=== PATIENT | female | born 1945 | race Caucasian/White ===

== ENCOUNTER → 2016-04-16 | Outpatient (CLI) | payer BC ==
[~2016-04-16] MED LIST: ARMO150T4 PO; BACL10TA PO; CALC500C70 PO; CHOL20007 PO; CYAN100020 PO; CYM60 PO; ERGO1CAP35 PO; GADAVIST IV PRN; GLAT1INJ SC; HYDR-4383 PO; LEVO25TA5 PO; LIOT5TAB9 PO; MELA1TAB5 PO; MELOXICAM TOP; MULT-190 PO; MULT-506 PO; MULTCAP33 PO; NAPR500T3 PO; SNQ/25 PO
--- NOTE | 2016-04-16 13:51 | DIAGNOSTIC IMAGING REPORT ---
BRAIN COMBO FOR MS CLINICAL HISTORY: Multiple sclerosis. COMPARISON STUDY: MRI of the brain September 16, 2013. TECHNIQUE: Utilizing a 1.5 Francie magnet and dedicated coil, multiplanar, multiecho imaging of the brain was performed pre and postcontrast administration according to the multiple sclerosis protocol. Injection of 6 cc of Gadavist IV was uneventful. FINDINGS: No areas of restricted diffusion. No acute intracranial hemorrhage, midline shift or mass effect is present. Ventricular system is stable. The basilar cisterns are patent. There are no extra-axial collections. Flow-voids for the major intracranial vessels are present. There are no intracranial masses or areas of pathologic enhancement with the exception of a suspected small arachnoid cyst anterior to the left temporal lobe. This is unchanged. There are no areas of enhancement to suggest active demyelination. There are numerous periventricular and subcortical white matter T2 hyperintense foci. A few of these suspected plaques are slightly more conspicuous than on prior exam of September 16, 2013. No new plaques are identified. Orbits and sinuses are unremarkable. IMPRESSION: Numerous periventricular and subcortical white matter T2 hyperintense foci suggestive of demyelinating plaques. The conspicuity of several these plaques has mildly increased since exam of September 16, 2013. Otherwise, no change since prior exam. No evidence for active demyelination. Electronically signed by: Juan Carlos Martin M.D. 04/16/2016 1:49 PM
== END | disposition home or self-care (01) ==
LOC: C.MRI 12:02
PROVIDERS: ATTEND Psychiatry & Neurology Neurology
DX: G35 Multiple sclerosis (principal)

== ENCOUNTER → 2016-06-09 | Outpatient (CLI) | payer BC ==
[~2016-06-09] MED LIST changes: -GADAVIST IV PRN; -LEVO25TA5 PO
--- NOTE | 2016-06-09 15:51 | DIAGNOSTIC IMAGING REPORT ---
LEFT SHOULDER MIN 2 VIEWS ROUTINE CLINICAL HISTORY: M25.512 Left shoulder [id number] pain COMPARISON: None. DISCUSSION: Calcific density and/or chondroid type density left proximal humeral shaft. This is most likely a benign subchondral type process such as a chondroma. There are moderate degenerative changes of the glenohumeral joint. There is a grade 1 separation of the acromioclavicular joint. There is no evidence for soft tissue swelling. IMPRESSION: 1. No evidence for fracture. 2. Grade 1 separation left acromioclavicular joint. 3. Moderate degenerative change Electronically signed by: Aden Gregorio M.D. 06/09/2016 3:50 PM Dictated Date/Time: 06/09/2016 3:49 PM
--- NOTE | 2016-06-09 16:00 | DIAGNOSTIC IMAGING REPORT ---
CERVICAL SPINE 2 OR 3 VIEWS CLINICAL HISTORY: Neck pain COMPARISON STUDY: No previous studies for comparison. FINDINGS: There is a mild scoliosis. The prevertebral soft tissues are normal. No acute fractures or subluxations are visualized. There are moderate multilevel degenerative changes with multilevel disc space narrowing. There is endplate irregularity most pronounced the C6-7 level. IMPRESSION: Moderately advanced multilevel degenerative change. No acute fractures or traumatic subluxations are visualized. Electronically signed by: Lewis Zapien M.D. 06/09/2016 3:59 PM Dictated Date/Time: 06/09/2016 3:58 PM
--- NOTE | 2016-06-09 16:01 | DIAGNOSTIC IMAGING REPORT ---
RIGHT HIP 2 VIEWS CLINICAL HISTORY: Right hip pain. FINDINGS: AP and frog-leg views of the right hip are obtained. No prior studies are available for comparison at the time of dictation. The skeletal structures are osteopenic. No fracture is seen. The joint space of the hip appears preserved. The overlying soft tissues are within normal limits. IMPRESSION: No acute bony abnormality is seen in the right hip. Electronically signed by: Ian Hidalgo M.D. 06/09/2016 4:00 PM Dictated Date/Time: 06/09/2016 3:59 PM
== END | disposition home or self-care (01) ==
LOC: C.RAD 15:06
PROVIDERS: ATTEND Family Medicine
DX: M25.512 Pain in left shoulder (principal); M25.551 Pain in right hip; M54.2 Cervicalgia; S43.102A Unspecified dislocation of left acromioclavicular joint, initial encounter; X58.XXXA Exposure to other specified factors, initial encounter

== ENCOUNTER → 2016-06-16 | Outpatient (CLI) | payer BC ==
[~2016-06-16] MED LIST changes: +GADAVIST IV PRN
--- NOTE | 2016-06-16 15:40 | DIAGNOSTIC IMAGING REPORT ---
CERVICAL SPINE MRI WITH AND WITHOUT CONTRAST HISTORY: Pain. Neuropathy. M54.2 Neck painM50.90 Cervical disc disease TECHNIQUE: Multiplanar multisequence MRI of the cervical spine was performed both before and after the use of intravenous contrast. COMPARISON STUDY: None. FINDINGS: Limited study technically due to considerable patient motion. Considerable degenerative disc change throughout the entire cervical region. Sagittal images suggest a linear focus of myelomalacia left lateral aspect of the C3 cervical cord measuring 8 x 3 mm. There is no significant postcontrast enhancement within limitations of patient motion. C2-C3: Minimal broad-based bulging disc. This is in contact with but shows no significant deformity of the cervical cord. Small focus of myelomalacia left lateral aspect of the cord at the level of C3. C3-C4: Mild broad-based disc bulge. No major impact upon the cervical cord. C4-C5: Mild broad-based bulging disc. This shows partial effacement anterior subarachnoid space. No significant impact with cervical cord. C5-C6: No significant central canal or neural foraminal narrowing. C6-C7: Minimal broad-based disc bulge. Partial effacement anterior subarachnoid space. No significant contact with the cervical cord. C7-T1: No significant central canal or neural foraminal narrowing. IMPRESSION: 1 Limited exam due to patient motion. 2. Considerable degenerative disc change throughout the entire cervical region. 3. Mild broad-based disc bulges at C3-C4, C4-C5, C6-C7, and to lesser extent C2-C3. 4. Focus of myelomalacia lateral aspect cervical cord at the C3 level measuring 8 x 3 mm. 5. No evidence for abnormal postcontrast enhancement Electronically signed by: Aden Gregorio M.D. 06/16/2016 3:39 PM Dictated Date/Time: 06/16/2016 3:31 PM
== END | disposition home or self-care (01) ==
LOC: C.MRI 13:11
PROVIDERS: ATTEND Family Medicine
DX: M50.20 Other cervical disc displacement, unspecified cervical region (principal); G95.89 Other specified diseases of spinal cord

== ENCOUNTER → 2016-07-31 | Outpatient (CLI) | payer BC ==
[~2016-07-31] MED LIST changes: -GADAVIST IV PRN; +LEVO25TA5 PO
== END | disposition home or self-care (01) ==
LOC: C.MAMM 09:29
PROVIDERS: ATTEND Family Medicine
DX: M81.0 Age-related osteoporosis without current pathological fracture (principal); M85.851 Other specified disorders of bone density and structure, right thigh; M85.852 Other specified disorders of bone density and structure, left thigh

== ENCOUNTER → 2016-12-09 | Day surgery (SDC) | payer BC ==
[2016-12-01 09:45] VITALS: Ht 170.2 cm; Wt 68.2 kg
[~2016-12-09] VITALS: Ht 170.2 cm; Wt 68.2 kg
[~2016-12-09] MED LIST changes: -LEVO25TA5 PO; +LIDOCAINE HCL 2% 2 ML VIAL (20MG/ML) ONE; -MULT-190 PO; +PROPOFOL IV EMULSION 10 MG/ML 20 ML VIAL IV ONE; -SNQ/25 PO; +SODIUM CHLORIDE 0.9% 500ML 500 ML IV ONE
--- NOTE | 2016-12-09 09:50 | Endo History and Physical ---
History & Physical Date of Service: Dec 09, 2016. Chief Complaint: SCREENING Referring Physician: Case History of Present Illness 71 yo CF who presents for screening colonoscopy. Past Surgical History Hx Cardiac Surgery: No Hx Internal Defibrillator: No Hx Pacemaker: No Hx Abdominal Surgery: Yes () Hx of Implantable Prosthesis: No Hx Post-Op Nausea and Vomiting: No Hx Cancer Surgery: No Hx Thoracic Surgery: No Hx Orthopedic: Yes (RT HAND THUMB SURGERY, LT/RT FOOT SURGERY) Hx Urinary Tract Surgery: Yes (LITHOTRIPSY) Family History Colon CA Social History Smoking Status: Never Smoker Hx Substance Use: No Hx Alcohol Use: No Allergies Coded Allergies: Interferon Beta-1a (Verified Allergy, Mild, UNKNOWN, 12/09/16) Gabapentin (Verified Allergy, Unknown, "I DON'T REMEMBER REACTION", ) Latex1 -Allergic Contact Dermititis (Verified Allergy, Unknown, RASH, 12/09) Penicillins (Verified Allergy, Unknown, UNKNOWN, 12/09/16) Nickel (Verified Adverse Reaction, Unknown, SKIN IRRITATION, 12/09/16) Uncoded Allergies: MRI CONTRAST (Allergy, Unknown, headaches, 06/20/15) Current Medications Reported Home Medications Medications Dose Route/Sig Max Daily Dose Days Date Category [Meloxicam Cream] 1 Dose TOP BID 12/01/16 Reported Kp Melatonin (Melatonin) 3 Mg Tab 2 Tabs PO HS 12/01/16 Reported Vitamin D3 (Cholecalciferol) 2,000 Unit Tab 1 Tab PO QAM 12/01/16 Reported Preservision Areds (Multiple Vitamins W/ Minerals) 1 Cap Cap 1 Cap PO DAILY 12/01/16 Reported Vitamin D Cap (Ergocalciferol) 50,000 Interunit Cap 50,000 Inter.unit PO WK 10/17/15 Reported [place] 10/325 Tab (Acetaminophen/Hydrocodone Bitart) 1 Tab Tab 1 Tab PO Q4-6H PRN 10/16/15 Reported Copaxone (Glatiramer Acetate) 40 Mg/Ml Inj 40 Mg SC MWF 10/16/15 Reported Naproxen 500 Mg Tab 500 Mg PO BID PRN 10/16/15 Reported Liothyronine Sodium 5 Mcg Tab 5 Mcg PO QAM 07/05/15 Reported Nuvigil (Armodafinil) 150 Mg Tab 150 Mg PO QAM 07/05/15 Reported Vitamin B12 (Cyanocobalamin) 1,000 Mcg Tab 1,000 Mcg PO QAM 06/20/15 Reported Cymbalta * (Duloxetine HCl) 60 Mg Cap 60 Mg PO QPM 04/28/11 Reported Multivitamin (Multivitamins) Tab 1 Tab PO QAM 04/28/11 Reported Os-Kyle 500 Plus D (Calcium/Vitamin D) Tab 1 Tab PO DAILY 04/28/11 Reported Vital Signs Weight (Kilograms): 68.18 Height (Feet): 5 Height (Inches): 7 Physical Exam General Appearance: WD/WN, no apparent distress Respiratory/Chest: Auscultation: breath sounds normal Cardiovascular: Heart Auscultation: RRR Abdomen: Bowel Sounds: normal Inspection & Palpation: soft, non-distended, no tenderness, guarding & rebound Assessment and Plan Assessment: 71 yo CF who presents for screening colonoscopy. Plan: Proceed with colonoscopy.
--- NOTE | 2016-12-09 10:33 | Discharge Instructions ---
Endoscopy Patient Instructions Date / Procedure(s) Performed Dec 09, 2016. Colonoscopy Allergy Information Coded Allergies: Interferon Beta-1a (Verified Allergy, Mild, UNKNOWN, 12/09/16) Gabapentin (Verified Allergy, Unknown, "I DON'T REMEMBER REACTION", ) Latex1 -Allergic Contact Dermititis (Verified Allergy, Unknown, RASH, 12/09) Penicillins (Verified Allergy, Unknown, UNKNOWN, 12/09/16) Nickel (Verified Adverse Reaction, Unknown, SKIN IRRITATION, 12/09/16) Uncoded Allergies: MRI CONTRAST (Allergy, Unknown, headaches, 06/20/15) Discharge Date / Findings Dec 09, 2016. Diverticulosis Internal hemorrhoids Medication Instructions OK to resume all medications today as prescribed Reported Home Medications Medications Dose Route/Sig Max Daily Dose Days Date Category [Meloxicam Cream] 1 Dose TOP BID 12/01/16 Reported Kp Melatonin (Melatonin) 3 Mg Tab 2 Tabs PO HS 12/01/16 Reported Vitamin D3 (Cholecalciferol) 2,000 Unit Tab 1 Tab PO QAM 12/01/16 Reported Preservision Areds (Multiple Vitamins W/ Minerals) 1 Cap Cap 1 Cap PO DAILY 12/01/16 Reported Vitamin D Cap (Ergocalciferol) 50,000 Interunit Cap 50,000 Inter.unit PO WK 10/17/15 Reported [place] 10/325 Tab (Acetaminophen/Hydrocodone Bitart) 1 Tab Tab 1 Tab PO Q4-6H PRN 10/16/15 Reported Copaxone (Glatiramer Acetate) 40 Mg/Ml Inj 40 Mg SC MWF 10/16/15 Reported Naproxen 500 Mg Tab 500 Mg PO BID PRN 10/16/15 Reported Liothyronine Sodium 5 Mcg Tab 5 Mcg PO QAM 07/05/15 Reported Nuvigil (Armodafinil) 150 Mg Tab 150 Mg PO QAM 07/05/15 Reported Vitamin B12 (Cyanocobalamin) 1,000 Mcg Tab 1,000 Mcg PO QAM 06/20/15 Reported Cymbalta * (Duloxetine HCl) 60 Mg Cap 60 Mg PO QPM 04/28/11 Reported Multivitamin (Multivitamins) Tab 1 Tab PO QAM 04/28/11 Reported Os-Kyle 500 Plus D (Calcium/Vitamin D) Tab 1 Tab PO DAILY 04/28/11 Reported Provider Instructions Activity Restrictions - No exercising or heavy lifting for 24 hours. - Do not drink alcohol the day of the procedure. - Do not drive a car or operate machinery until the day after the procedure. - Do not make any important decisions or sign important papers in 24 hours after the procedure. Following Day: - Return to full activity which may include returning to work/school. Diet Start your diet with liquids and light foods (jello, soup, juice, toast). Then eat your usual diet if not nauseated. Treatment For Common After Affects For mild abdominal pain, bloating, or excessive gas: - Rest - Eat lightly - Lie on right side Follow-Up Information Follow-up with UNKNOWN as scheduled Anesthesia Information What You Should Know You have had a procedure that required some medicine to reduce anxiety and discomfort. This treatment is called moderate sedation. After receiving the treatment, you may be sleepy, but you will be able to breathe on your own. The effects of the treatment may last for several hours. Follow these instructions along with Activity/Diet recommendations noted above: * Do NOT do anything where dizziness or clumsiness would be dangerous. * Rest quietly at home today, then you can be up and about tomorrow. * Have a responsible person stay with you the rest of today. * You may have had an I.V. today. If so, you may take the dressing off later today. Recommendations Call your doctor if: * Trouble breathing * Continuous vomiting for more than 24 hours * Temperature above 101 degrees * Severe abdominal pain or bloating * Pain not relieved by pain medicine ordered * There is increased drainage or redness from any incision * A large amount of rectal bleeding greater than 2-3 tablespoons. (If you had a polyp/s removed or have hemorrhoids, a small amount of blood - from the rectum is to be expected.) * You have any unanswered questions or concerns. IN THE EVENT OF A SERIOUS EMERGENCY, GO TO THE NEAREST EMERGENCY ROOM Your discharge instructions were prepared by provider Ted Lopez. Patient Instructions Signature Page Susan Mckinley Patient (or Guardian) Signature/Date: I have read and understand the instructions given to me by my caregivers. Caregiver/RN/Doctor Signature/Date: The above-named patient and/or guardian has received patient instructions on this date. + Original Patient Signature Page (only) stays with chart. Please make copy for patient.
--- NOTE | 2016-12-09 10:58 | GI REPORT ---
Procedure Date: 12/09/2016 10:03 AM Procedure: Colonoscopy Indications: Screening for colorectal malignant neoplasm Medicines: Monitored Anesthesia Care Complications: No immediate complications. Estimated Blood Loss: Estimated blood loss: none. Procedure: Pre-Anesthesia Assessment: - Prior to the procedure, a History and Physical was performed, and patient medications and allergies were reviewed. The patient's tolerance of previous anesthesia was also reviewed. The risks and benefits of the procedure and the sedation options and risks were discussed with the patient. All questions were answered, and informed consent was obtained. Prior Anticoagulants: The patient has taken no previous anticoagulant or antiplatelet agents. ASA Grade Assessment: III - A patient with severe systemic disease. After reviewing the risks and benefits, the patient was deemed in satisfactory condition to undergo the procedure. After I obtained informed consent, the scope was passed under direct vision. Throughout the procedure, the patient's blood pressure, pulse, and oxygen saturations were monitored continuously. The scope was introduced through the anus and advanced to the terminal ileum. The colonoscopy was performed without difficulty. The patient tolerated the procedure well. The quality of the bowel preparation was good. The terminal ileum, ileocecal valve, appendiceal orifice, and rectum were photographed. Findings: Multiple small-mouthed diverticula were found in the sigmoid colon. Non-bleeding internal hemorrhoids were found during retroflexion. The hemorrhoids were mild. Impression: - Diverticulosis in the sigmoid colon. - Non-bleeding internal hemorrhoids. - No specimens collected. Recommendation: - Resume previous diet. - Continue present medications. - No repeat colonoscopy due to age and the absence of advanced adenomas. - Return to primary care physician as previously scheduled. Ted Lopez DO 12/09/2016 10:57:25 AM This report has been signed electronically. Note Initiated On: 12/09/2016 10:03 AM I attest to the content of the Intraoperative Record and orders documented therein, exceptions below
[2016-12-09 11:05] VITALS: BP 153/91; PULSE 65; O2SAT 99
--- NOTE | 2016-12-09 11:11 | Anesthesiology Progress Note ---
Anesthesia Post Op Note Date & Time Dec 09, 2016 at 11:11 Vital Signs Pain Intensity: 0 Vital Signs Past 12 Hours Date Time Temp Pulse Resp B/P (MAP) Pulse Ox O2 Delivery O2 Flow Rate FiO2 12/09/16 11:05 65 16 153/91 (111) 99 Room Air 12/09/16 10:50 60 16 141/73 (95) 100 Room Air 12/09/16 10:34 76 16 125/76 (92) 97 Room Air 12/09/16 09:49 36.6 76 18 146/84 (104) 96 Room Air Notes Mental Status: alert / awake / arousable, participated in evaluation Pt Amnestic to Procedure: Yes Nausea / Vomiting: adequately controlled Pain: adequately controlled Airway Patency, RR, SpO2: stable & adequate BP & HR: stable & adequate Hydration State: stable & adequate Anesthetic Complications: no major complications apparent
== END | disposition home or self-care (01) ==
LOC: C.GI 09:02
PROVIDERS: ATTEND Internal Medicine
DX: Z12.11 Encounter for screening for malignant neoplasm of colon (principal); K57.30 Diverticulosis of large intestine without perforation or abscess without bleeding; K64.8 Other hemorrhoids; Z80.0 Family history of malignant neoplasm of digestive organs; G47.33 Obstructive sleep apnea (adult) (pediatric); E03.9 Hypothyroidism, unspecified; Z87.442 Personal history of urinary calculi; F32.9 Major depressive disorder, single episode, unspecified; G35 Multiple sclerosis; M54.2 Cervicalgia

== ENCOUNTER → 2016-12-23 | Outpatient (CLI) | payer BC ==
[~2016-12-23] MED LIST changes: -LIDOCAINE HCL 2% 2 ML VIAL (20MG/ML) ONE; -PROPOFOL IV EMULSION 10 MG/ML 20 ML VIAL IV ONE; -SODIUM CHLORIDE 0.9% 500ML 500 ML IV ONE
--- NOTE | 2016-12-24 14:21 | MAMMOGRAPHY REPORT ---
BILATERAL DIGITAL SCREENING MAMMOGRAM WITH CAD: 12/23/2016 CLINICAL HISTORY: Routine screening. Patient has no complaints. TECHNIQUE: Bilateral CC and MLO views were obtained. Current study was also evaluated with a Compute r Aided Detection (CAD) system. COMPARISON: Comparison is made to exams dated: 09/25/2015 mammogram, 07/24/2014 mammogram, 02/16/2013 m ammogram, 10/30/2011 mammogram, 06/25/2010 mammogram - [facility] [address], and 07/04/2008. BREAST COMPOSITION: There are scattered areas of fibroglandular density in both breasts. FINDINGS: Multiple subcentimeter fluctuating masses are again seen scattered diffusely throughout eac h breast, most likely representing fluctuating cysts. There is stable benign coarse calcification in the right breast. No suspicious spiculated or irregular mass, architectural distortion or cluster o f new, suspicious microcalcifications is seen. IMPRESSION: ACR BI-RADS CATEGORY 1: NEGATIVE There is no mammographic evidence of malignancy. A 1 year screening mammogram is recommended. The pa tient will receive written notification of the results. Approximately 10% of breast cancers are not detected with mammography. A negative mammographic report should not delay biopsy if a clinically suggestive mass is present. Lana Flores M.D. ay/:12/23/2016 16:37:00 Band Splitter: Lilly Bowie, [facility] [address] letter sent: Normal 1/2 BI-RADS Code: ACR BI-RADS Category 1: Negative
== END | disposition home or self-care (01) ==
LOC: C.MAMM 11:03
PROVIDERS: ATTEND Family Medicine
DX: Z12.31 Encounter for screening mammogram for malignant neoplasm of breast (principal)

== ENCOUNTER → 2017-01-13 | Outpatient (CLI) | payer BC ==
--- NOTE | 2017-01-13 10:03 | DIAGNOSTIC IMAGING REPORT ---
CHEST 2 VIEWS ROUTINE HISTORY: Cough. COMPARISON: Chest 10/16/2015. FINDINGS: The lungs are clear. The heart is normal in size. No pleural effusions. No pneumothorax. Mildly tortuous thoracic aorta, unchanged. IMPRESSION: No significant change compared to the prior study. No acute process. Electronically signed by: Alexey Araiza M.D. 01/13/2017 10:02 AM Dictated Date/Time: 01/13/2017 9:47 AM
[2017-01-13 12:20] LABS: BASO % 0.3 %; BASO ABS # 0.02 K/uL (0-0.2); COMPLETE YES; EOS % 0.8 %; HEMATOCRIT 41.4 % (37-47); IG% 0.2 %; LYMPH % 32.6 %; LYMPH ABS # 1.92 K/uL (1.2-3.4); MEAN CELL VOLUME 96.3 fL (80-100); MEAN CORPUSCULAR HEMOGLOBIN 30.7 pg (25-34); MEAN CORPUSCULAR HGB CONC 31.9 g/dl (32-36); MEAN PLATELET VOLUME 9.8 fL (7.4-10.4); MONO % 6.3 %; NEUT % 59.8 %; PLATELET COUNT 376 K/uL (130-400); WHITE BLOOD COUNT 5.89 K/uL (4.8-10.8)
[2017-01-13 12:38] LABS: ALT/SGPT 22 U/L (12-78); AST/SGOT 16 U/L (15-37); BLOOD UREA NITROGEN 28 mg/dl (7-18); BUN/CREATININE RATIO 39.3 (10-20); CALCIUM 9.4 mg/dl (8.5-10.1); CARBON DIOXIDE 27 mmol/L (21-32); CHLORIDE 106 mmol/L (98-107); CREATININE 0.71 mg/dl (0.60-1.20); GLUCOSE 85 mg/dl (70-99); MAGNESIUM 2.2 mg/dl (1.8-2.4); POTASSIUM 3.9 mmol/L (3.5-5.1); SODIUM 141 mmol/L (136-145)
[2017-01-13 12:48] LABS: ALB/GLOB RATIO 1.1 (0.9-2); ALKALINE PHOSPHATASE 77 U/L (45-117)
== END | disposition home or self-care (01) ==
LOC: C.RAD1850 09:37
PROVIDERS: ATTEND Nurse Practitioner Family
DX: R05 Cough (principal); E06.3 Autoimmune thyroiditis; E03.9 Hypothyroidism, unspecified

== ENCOUNTER → 2017-01-22 | Outpatient (CLI) | payer BC | END | disposition home or self-care (01) | LOC: C.LAB1850 12:18 | PROVIDERS: ATTEND Neuromusculoskeletal Medicine & OMM | DX: F32.9 Major depressive disorder, single episode, unspecified (principal); R53.83 Other fatigue ==

== ENCOUNTER → 2017-03-10 | Outpatient (CLI) | payer BC ==
[~2017-03-10] MED LIST changes: -CYAN100020 PO; -ERGO1CAP35 PO; +LEVO25TA5 PO
--- NOTE | 2017-03-10 13:29 | SWALLOWING EVALUATION ---
HISTORY: This 72 year-old woman, from home, who was referred for a VFSS at [facility]. She has a PMH significant for MS, chronic cervicaliga with left neck pain. Currently the patient's diet level is regular with thins. Pt. reports that she had no difficulty swallowing however she does have a habitual cough especially at night for over a year. Pt. reports that she is not on any GERD or reflux meds and that she does not have a diagnosis of such. PROCEDURE: The patient was seen in the Radiology Department of [facility] for the VFSS. Cursory examination of the oral cavity revealed adequate dentition. Movement of the articulators was WNL. The patient was seated in a wheel chair and was viewed in both the Anterior-Posterior (A-P) and Lateral planes. Volitional phonation exercises completed in the A-P plane revealed bilateral vocal fold movement and vocal intensity within functional limits. In the lateral plane, the patient was given the following barium-infused boluses: 1 tsp thin barium with oral hold 1x, self presented single cup swallow-thin barium 1x, self presented serial cup swallow 1x. 1 tsp nectar thick barium with oral hold 1x, self presented single cup swallow- nectar thick barium 1x, self presented serial cup swallows 1x. 1 tsp barium pudding-self presented 1x. 1/2 Cracker with barium paste. In the A-P view, pt was given 1 tsp barium pudding with esophageal scan. RESULTS: Oral Phase:Pt. had adequate lip closure and no labial escape of any food or liquid items presented. Pt. had adequate tongue control and bolus hold by demonstrating a cohesive bolus between tongue and palatal seal. Bolus preparation and mastication was WFL as timely and efficient chewing and mashing was observed with all consistencies. Bolus transport and lingual motion were functional as pt. demonstrated brisk tongue motion and no oral residue resulting in complete oral clearance. Initiation of pharyngeal swallow began with bolus head at posterior angle of ramus. * Overall WFL for oral phase of swallow. Pharyngeal Phase:Soft Palate Elevation was complete for all boluses and no bolus was between the soft palate and the pharyngeal wall. Laryngeal elevation was WFL showing complete superior movement of the thyroid cartilage with complete approximation of arytenoids to epiglottic base. Anterior Hyoid excursion was observed with complete anterior movement as well as complete epiglottic inversion. Laryngeal Vestibular closure was complete and no air or barium was noted in laryngeal vestibule. Pharyngeal stripping wave was present and complete. Pharyngeal contraction was complete for all tested items. Pharyngoesophageal segment opening was also WFL showing complete distension and complete duration with no obstruction of flow. Tongue base retraction was noted with all consistencies and tongue base made effective contact with posterior pharyngeal wall throughout study. There was no Pharyngeal residue resulting in complete pharyngeal clearance of all tested items. *Overall WFL for pharyngeal stage of the swallow. Esophageal Phase:Opening and closing of the PES was timely and efficient however noted retention with retrograde motion below the PES however with increased intake likely to reach level of PES and above. SUMMARY/RECOMMENDATIONS: Overall pt. presents with NO oral or pharyngeal dysphagia. NO aspiration and NO penetration occurred throughout this study. Pt. does present with Esophageal dysmotility with retrograde motion. Recommendin. Regular "slippery" diet with thin liquids - Pt. was given written diet recommendations as well as GERD precautions and strategies. 2. Consideration for GI follow-up is advised All results and recommendations were discussed with the pt. Thank you for referral of this patient. Please contact me at if any additional information is needed
--- NOTE | 2017-03-10 14:08 | DIAGNOSTIC IMAGING REPORT ---
VIDEO SWALLOW STUDY CLINICAL HISTORY: Multiple sclerosis. Cough. Clinical concern for aspiration. COMPARISON STUDY: No priors. Fluoroscopy time: 1.5 minutes. FINDINGS: Fluoroscopic guidance was provided to the department of speech pathology in performing a video swallow study. The patient consumed barium-impregnated pudding, cracker with paste, nectar thick liquid, and thin barium while the swallowing mechanism was observed in real-time. No penetration or aspiration was seen with any of the sampled textures. Esophageal dysmotility was observed. IMPRESSION: No penetration or aspiration was seen with any of the sampled textures. See dedicated speech pathology report for detailed findings and recommendations. Dictated: 03/10/2017 1:46 PM Transcribed: 03/10/2017 2:08 PM [facility] Electronically signed by: Ian Hidalgo M.D. 03/10/2017 2:17 PM Dictated Date/Time: 03/10/2017 1:46 PM
== END | disposition home or self-care (01) ==
LOC: C.RAD 11:27
PROVIDERS: ATTEND Nurse Practitioner Family
DX: G35 Multiple sclerosis (principal); R05 Cough

== ENCOUNTER → 2017-03-10 | Outpatient (CLI) | payer BC | END | disposition home or self-care (01) | LOC: C.LAB1850 11:01 | PROVIDERS: ATTEND Nurse Practitioner Family | DX: E03.9 Hypothyroidism, unspecified (principal) ==

== ENCOUNTER 2023-07-11 07:36 | Inpatient (IN) ==
--- NOTE | 2023-07-11 07:50 | Emergency Department Note ---
History of Present Illness General Chief complaint: Shortness of Breath/Dyspnea Stated complaint: SOB, ILLNESS History of Present Illness Provider complaint: Illness 78-year-old female presents emergency department via EMS for illness. Patient reports she started feeling ill yesterday like she had the flu. Daughter recently had the flu. She started having nausea and weakness yesterday. She woke up this morning was very weak and nauseated. EMS reported they arrived and patient was in A-fib RVR with low blood pressure. Adenosine 6 mg and 12 mg was given to the patient. Patient's heart rate and blood pressure started to improve mildly with IV fluids. A total of 800 cc normal saline were given by EMS. Home Medications Medication Instructions Recorded Confirmed Type calcium carbonate 500 mg-vitamin 1 tab PO DAILY 12/03/18 07/11/23 History D3 5 mcg (200 unit) tablet liothyronine 5 mcg tablet (Cytomel) 5 mcg PO QAM #90 tabs 12/03/18 07/11/23 History melatonin 3 mg tablet 6 mg PO HS 12/03/18 07/11/23 History multivitamin (Daily Multi-Vitamin 1 tab PO DAILY 12/03/18 07/11/23 History tablet) vitamins A,C,N-hcmw-tdfieo 4,296 1 cap PO DAILY 12/03/18 07/11/23 History mcg-226 mg-90 mg capsule (PreserVision AREDS) cholecalciferol (vitamin D3) 50 50 mcg PO DAILY 02/05/21 07/11/23 History mcg (2,000 unit) capsule ferrous sulfate 325 mg (65 mg 325 mg PO DAILY 10/11/21 07/11/23 History iron) tablet levothyroxine 50 mcg tablet 50 mcg PO DAILY 10/11/21 07/11/23 History naproxen 500 mg tablet 500 mg PO BID PRN pain 90 days 10/20/22 07/11/23 Rx #180 tabs omeprazole 40 mg capsule,delayed 40 mg PO DAILY 03/16/23 07/11/23 History release duloxetine 30 mg capsule,delayed 30 mg PO HS 90 days #90 caps 04/14/23 07/11/23 Rx release duloxetine 60 mg capsule,delayed 60 mg PO HS #90 caps 04/14/23 07/11/23 Rx release armodafinil 250 mg tablet (Nuvigil) 250 mg PO QAM #90 tabs 05/15/23 07/11/23 Rx famotidine 40 mg tablet 0 mg PO UD 07/11/23 07/11/23 History meloxicam 15 mg tablet 0 mg PO UD 07/11/23 07/11/23 History Allergies Allergy/AdvReac Type Severity Reaction Status Date / Time latex Allergy Intermediate RASH Verified 03/16/23 10:26 interferon beta-1a Allergy Mild UNKNOWN Verified 03/16/23 10:26 gabapentin Allergy Unknown unknown Verified 03/16/23 10:26 Penicillins Allergy Unknown UNKNOWN Verified 03/16/23 10:26 nickel AdvReac Unknown SKIN Verified 03/16/23 10:26 IRRITATION baclofen AdvReac known Verified 03/16/23 10:26 MRI CONTRAST Allergy Mild headaches Uncoded 03/16/23 10:26 Past Med/Surg History Medical History (Updated 07/11/23 @ 10:44 by Bora Bernabe MD) GERD (gastroesophageal reflux disease) Osteoarthritis Degenerative disc disease Chronic back pain Compression fracture currently in a back brace --> from an accident 12/2019. Migraine Cervical disc disease Macular degeneration Multiple sclerosis H/O Rishi thyroiditis Surgical History History of section S/P ear surgery Left ear - zygomatic arch surgery History of colonoscopy H/O hand surgery right hand H/O foot surgery bilateral Family History Father Colon cancer Mother Dementia Aunt Breast cancer Lung cancer Other No family history of adverse response to anesthesia Social History Smoking Status: Never smoker Second Hand Exposure: No; Do You Dip or Chew Tobacco: No; Hx Alcohol Use: No Hx Substance Use: No Preferred Language: Irish Communication Ability: Effective Visual Impairment: No Limitations Hearing Ability: Normal 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 Beliefs That Will Affect Care: None marital status: Current Living Situation: Spouse current occupational status: retired Feels Safe at Home: Yes Assistive Devices: Cane, Denture - Upper and Hearing Aid - Bilateral Physical Exam Vital Signs Vital Signs - 24 hr 07/11/23 07:28 07/11/23 07:30 07/11/23 07:40 Temperature Temperature Source Pulse Rate 153 H Pulse Rate [Apical] Pulse Rate from SpO2 Sensor Respiratory Rate 24 24 24 Respiratory Effort / Characteristics Blood Pressure Blood Pressure [Right Arm] Blood Pressure Mean Blood Pressure Mean [Right Arm] Blood Pressure Position [Right Arm] Pulse Oximetry 98 96 Oxygen Delivery Method Oxygen Flow Rate Fraction of Inspired Oxygen Sepsis Recent Fever Within 48 Hours Sepsis New/Unexplained Change in Mental Status Sepsis Action Taken by Nursing End-Tidal CO2 Oxygen Flow Rate - Titration Pulse Oximetry Post Tiitration 07/11/23 07:41 07/11/23 07:41 07/11/23 07:45 Temperature Temperature Source Pulse Rate 150 H 154 H Pulse Rate [Apical] Pulse Rate from SpO2 Sensor 93 H Respiratory Rate 26 H 18 Respiratory Effort / Characteristics Blood Pressure 73/53 L Blood Pressure [Right Arm] Blood Pressure Mean 57 Blood Pressure Mean [Right Arm] Blood Pressure Position [Right Arm] Pulse Oximetry 83 L Oxygen Delivery Method Oxygen Flow Rate Fraction of Inspired Oxygen Sepsis Recent Fever Within 48 Hours Sepsis New/Unexplained Change in Mental Status Sepsis Action Taken by Nursing End-Tidal CO2 Oxygen Flow Rate - Titration Pulse Oximetry Post Tiitration 07/11/23 07:46 07/11/23 07:50 07/11/23 07:50 Temperature Temperature Source Pulse Rate 150 H 135 H Pulse Rate [Apical] Pulse Rate from SpO2 Sensor 99 H Respiratory Rate 28 H 29 H Respiratory Effort / Characteristics Non-Labored Blood Pressure 73/53 L Blood Pressure [Right Arm] Blood Pressure Mean 59 Blood Pressure Mean [Right Arm] Blood Pressure Position [Right Arm] Pulse Oximetry 90 88 L Oxygen Delivery Method Room Air Oxygen Flow Rate Fraction of Inspired Oxygen Sepsis Recent Fever Within 48 Hours No Sepsis New/Unexplained Change in Mental Status No Sepsis Action Taken by Nursing Physician Notified End-Tidal CO2 Oxygen Flow Rate - Titration Pulse Oximetry Post Tiitration 07/11/23 07:54 07/11/23 07:54 07/11/23 07:55 Temperature Temperature Source Pulse Rate 129 H Pulse Rate [Apical] Pulse Rate from SpO2 Sensor 127 H Respiratory Rate 38 H Respiratory Effort / Characteristics Blood Pressure 49/28 L Blood Pressure [Right Arm] Blood Pressure Mean 43 Blood Pressure Mean [Right Arm] Blood Pressure Position [Right Arm] Pulse Oximetry 89 L Oxygen Delivery Method Nasal Cannula Oxygen Flow Rate 2 Fraction of Inspired Oxygen Sepsis Recent Fever Within 48 Hours Sepsis New/Unexplained Change in Mental Status Sepsis Action Taken by Nursing End-Tidal CO2 Oxygen Flow Rate - Titration 3 Pulse Oximetry Post Tiitration 89 L 03/30/24 07:55 07/11/23 07:56 07/11/23 07:58 Temperature 36.1 C L Temperature Source Rectal Pulse Rate 143 H 135 H Pulse Rate [Apical] Pulse Rate from SpO2 Sensor 113 H Respiratory Rate 23 Respiratory Effort / Characteristics Blood Pressure Blood Pressure [Right Arm] 80/40 L Blood Pressure Mean Blood Pressure Mean [Right Arm] 53 Blood Pressure Position [Right Arm] Pulse Oximetry Oxygen Delivery Method Oxygen Flow Rate Fraction of Inspired Oxygen Sepsis Recent Fever Within 48 Hours Sepsis New/Unexplained Change in Mental Status Sepsis Action Taken by Nursing End-Tidal CO2 Oxygen Flow Rate - Titration Pulse Oximetry Post Tiitration 07/11/23 08:00 07/11/23 08:05 07/11/23 08:10 Temperature 34.0 C L Temperature Source Pulse Rate 133 H 143 H 130 H Pulse Rate [Apical] Pulse Rate from SpO2 Sensor 103 H Respiratory Rate 30 H 24 28 H Respiratory Effort / Characteristics Blood Pressure Blood Pressure [Right Arm] Blood Pressure Mean Blood Pressure Mean [Right Arm] Blood Pressure Position [Right Arm] Pulse Oximetry 76 L Oxygen Delivery Method Oxygen Flow Rate Fraction of Inspired Oxygen Sepsis Recent Fever Within 48 Hours Sepsis New/Unexplained Change in Mental Status Sepsis Action Taken by Nursing End-Tidal CO2 Oxygen Flow Rate - Titration Pulse Oximetry Post Tiitration 07/11/23 08:11 07/11/23 08:11 07/11/23 08:15 Temperature 34.3 C L 34.7 C L Temperature Source Pulse Rate 143 H 139 H Pulse Rate [Apical] Pulse Rate from SpO2 Sensor 87 Respiratory Rate 29 H 33 H Respiratory Effort / Characteristics Blood Pressure 80/52 L Blood Pressure [Right Arm] Blood Pressure Mean 58 Blood Pressure Mean [Right Arm] Blood Pressure Position [Right Arm] Pulse Oximetry 78 L Oxygen Delivery Method Oxygen Flow Rate Fraction of Inspired Oxygen Sepsis Recent Fever Within 48 Hours Sepsis New/Unexplained Change in Mental Status Sepsis Action Taken by Nursing End-Tidal CO2 Oxygen Flow Rate - Titration Pulse Oximetry Post Tiitration 07/11/23 08:18 07/11/23 08:18 07/11/23 08:20 Temperature 35.0 C L 35.2 C L Temperature Source Pulse Rate 139 H 140 H Pulse Rate [Apical] Pulse Rate from SpO2 Sensor 118 H 120 H Respiratory Rate 28 H 28 H Respiratory Effort / Characteristics Blood Pressure 85/55 L Blood Pressure [Right Arm] Blood Pressure Mean 63 Blood Pressure Mean [Right Arm] Blood Pressure Position [Right Arm] Pulse Oximetry 80 L 76 L Oxygen Delivery Method Oxygen Flow Rate Fraction of Inspired Oxygen Sepsis Recent Fever Within 48 Hours Sepsis New/Unexplained Change in Mental Status Sepsis Action Taken by Nursing End-Tidal CO2 Oxygen Flow Rate - Titration Pulse Oximetry Post Tiitration 07/11/23 08:25 07/11/23 08:29 07/11/23 08:29 Temperature 35.3 C L 35.4 C L Temperature Source Pulse Rate 152 H 156 H Pulse Rate [Apical] Pulse Rate from SpO2 Sensor 141 H Respiratory Rate 26 H Respiratory Effort / Characteristics Blood Pressure 87/56 L Blood Pressure [Right Arm] Blood Pressure Mean 67 Blood Pressure Mean [Right Arm] Blood Pressure Position [Right Arm] Pulse Oximetry 79 L Oxygen Delivery Method Oxygen Flow Rate Fraction of Inspired Oxygen Sepsis Recent Fever Within 48 Hours Sepsis New/Unexplained Change in Mental Status Sepsis Action Taken by Nursing End-Tidal CO2 Oxygen Flow Rate - Titration Pulse Oximetry Post Tiitration 07/11/23 08:30 07/11/23 08:35 07/11/23 08:36 Temperature 35.4 C L 35.5 C L 35.5 C L Temperature Source Pulse Rate 138 H 145 H 132 H Pulse Rate [Apical] Pulse Rate from SpO2 Sensor 129 H 116 H 127 H Respiratory Rate 35 H 31 H 30 H Respiratory Effort / Characteristics Blood Pressure Blood Pressure [Right Arm] Blood Pressure Mean Blood Pressure Mean [Right Arm] Blood Pressure Position [Right Arm] Pulse Oximetry 83 L 79 L 79 L Oxygen Delivery Method Oxygen Flow Rate Fraction of Inspired Oxygen Sepsis Recent Fever Within 48 Hours Sepsis New/Unexplained Change in Mental Status Sepsis Action Taken by Nursing End-Tidal CO2 Oxygen Flow Rate - Titration Pulse Oximetry Post Tiitration 07/11/23 08:37 07/11/23 08:44 07/11/23 08:45 Temperature 35.3 C L Temperature Source Hyman Cath ( Temp Sensing) Pulse Rate Pulse Rate [Apical] 145 H Pulse Rate from SpO2 Sensor Respiratory Rate 24 Respiratory Effort / Characteristics Blood Pressure 87/61 L 96/58 L Blood Pressure [Right Arm] 96/58 L Blood Pressure Mean 76 74 Blood Pressure Mean [Right Arm] 70 Blood Pressure Position [Right Arm] Sitting Pulse Oximetry 80 L Oxygen Delivery Method Non-rebreather Oxygen Flow Rate 15 Fraction of Inspired Oxygen Sepsis Recent Fever Within 48 Hours Sepsis New/Unexplained Change in Mental Status Sepsis Action Taken by Nursing End-Tidal CO2 Oxygen Flow Rate - Titration Pulse Oximetry Post Tiitration 07/11/23 09:02 07/11/23 09:03 07/11/23 09:03 Temperature 35.4 C L 35.4 C L Temperature Source Pulse Rate Pulse Rate [Apical] Pulse Rate from SpO2 Sensor Respiratory Rate Respiratory Effort / Characteristics Blood Pressure 85/38 L Blood Pressure [Right Arm] Blood Pressure Mean 47 Blood Pressure Mean [Right Arm] Blood Pressure Position [Right Arm] Pulse Oximetry Oxygen Delivery Method Oxygen Flow Rate Fraction of Inspired Oxygen Sepsis Recent Fever Within 48 Hours Sepsis New/Unexplained Change in Mental Status Sepsis Action Taken by Nursing End-Tidal CO2 Oxygen Flow Rate - Titration Pulse Oximetry Post Tiitration 07/11/23 09:05 07/11/23 09:09 07/11/23 09:30 Temperature 35.3 C L Temperature Source Pulse Rate 141 H Pulse Rate [Apical] 132 H Pulse Rate from SpO2 Sensor Respiratory Rate 35 H 28 H Respiratory Effort / Characteristics Spontaneous Blood Pressure Blood Pressure [Right Arm] Blood Pressure Mean Blood Pressure Mean [Right Arm] Blood Pressure Position [Right Arm] Pulse Oximetry 80 L 89 L Oxygen Delivery Method [place] High Flow Nasal Cannula Oxygen Flow Rate 10 30 Fraction of Inspired Oxygen 100 Sepsis Recent Fever Within 48 Hours Sepsis New/Unexplained Change in Mental Status Sepsis Action Taken by Nursing End-Tidal CO2 Oxygen Flow Rate - Titration Pulse Oximetry Post Tiitration 07/11/23 09:55 Temperature Temperature Source Pulse Rate 95 H Pulse Rate [Apical] Pulse Rate from SpO2 Sensor Respiratory Rate 22 Respiratory Effort / Characteristics Blood Pressure Blood Pressure [Right Arm] Blood Pressure Mean Blood Pressure Mean [Right Arm] Blood Pressure Position [Right Arm] Pulse Oximetry 90 Oxygen Delivery Method Oxygen Flow Rate Fraction of Inspired Oxygen 100 Sepsis Recent Fever Within 48 Hours Sepsis New/Unexplained Change in Mental Status Sepsis Action Taken by Nursing End-Tidal CO2 31 Oxygen Flow Rate - Titration Pulse Oximetry Post Tiitration Physical Exam GENERAL: Ill-appearing. HENT: Exam performed. -Head: Normocephalic and atraumatic. EYES: Conjunctivae and EOM are normal. Pupils are equal, round, and reactive to light. Right eye exhibits no discharge. Left eye exhibits no discharge. No scleral icterus. NECK: Normal range of motion. Neck supple. No JVD present. No spinous process tenderness present. CV: Tachycardic rate, irregular rhythm, normal heart sounds and intact distal pulses. There is no peripheral edema. Palpable radial pulses bue. PULM/CHEST: Diminished breath sounds bilaterally. ABD: The abdomen is soft. NEURO: She is alert and oriented to person, place, and time. Motor and sensation grossly intact. Course Course 07: The patient was evaluated in room B1. A complete history and physical exam was performed Cardiac monitoring: An order was placed for continuous cardiac monitoring. The monitor shows a rate of 130-150 with atrial fibrilation rhythm interpreted by me Sepsis protocols initiated. 2 L normal saline bolus ordered for the patient. 814: Patient remains hypotensive. Bedside Salgado protocol showed no pericardial effusion/tamponade, FAST exam negative, no AAA, IVC is not collapsed and is plethoric. Chest x-ray reviewed by me shows right-sided infiltrate. Will treat the patient for pneumonia. Spoke with family who states that the patient gets hives when she got penicillin. Family also states that the patient had an unwitnessed fall out of bed this morning. Spoke with pharmacy, will give cefepime despite this and also give vancomycin. Bio fire still pending. Lactate 3.3. 0831: Patient remains tachycardic in atrial fibrillation. Blood pressure is improving and MAP is now greater than 65. Given her unwitnessed fall, patient will be sent to CT to rule out any traumatic injuries. White blood cell count 19. Hyman catheter was placed on the patient and the patient does not have any urine output. Given the patient's lactic acidemia, leukocytosis, decreased urine output, the thought is that the most likely cause of her hypotension is sepsis. We will hold off on any cardioversion at this time. 2036: Spoke with Dr. Wagner ICU. He recommends an additional 500 cc bolus to the 2 L bolus was already given and starting the patient on phenylephrine and titrating to MAP of 65. He states his pulse rate is still high the patient can be cardioverted. 2111: Patient returns from CT hypotensive and tachycardic in A-fib RVR. Phenylephrine drip increased. Will titrate to a MAP goal of 65. 2140: Patient's heart rate is improved. Creatinine 1.37. High-sensitivity troponin 351.15. BioFire negative. CT head and C-spine negative. CT of the abdomen pelvis does show no acute traumatic process and does confirm the right middle lobe pneumonia. There is also dilatation of the pancreatic duct measuring up to 6 mm with mild peripancreatic edema likely due to periportal edema. Radiology states an acute pancreatitis could also have similar appearance. They recommended follow-up with GI to correlate with pancreatic enzymes. Lipase ordered. It is thought that these findings are most likely due to the rapid fluid boluses for her septic shock. Patient appeared to have converted into normal sinus rhythm on the monitor however then went back into atrial fibrillation. Dr. Wagner at bedside. He recommends starting the patient on amiodarone bolus and drip for her A-fib. He states the patient might need to be intubated. Both he and I spoke with the family about possible intubation. They asked for a few minutes to discuss with her other family members before deciding about intubation. 1005: Family gave okay for intubation. See procedure note. ETT was retracted approximately 1 cm after chest x-ray was shot. After the intubation the patient did convert into a normal sinus rhythm. Amiodarone bolus and drip was held. Heparin drip and bolus was started on the patient as recommended by ICU. Spoke with Dr. Bernabe who will admit the patient. Administered Medications Vancomycin HCl 1,500 mg/ (Sodium Chloride) 530 mls @ 200 mls/hr IV NOW ONE Stop: 07/11/23 10:47 Last Admin: 07/11/23 08:30 Dose: 200 mls/hr Documented By: PEYTON Phenylephrine HCl (Phenylephrine/Nss) 25 mg in 250 mls @ 22.95 mls/hr IV .[id number] [facility]; Protocol Stop: 08/10/23 08:38 Last Titration: 07/11/23 10:19 Dose: 0 mcg/kg/min, 0 mls/hr Documented By: PEYTON Co-signed By: JU Titration: 07/11/23 10:08 Dose: 0.3 mcg/kg/min, 13.8 mls/hr Documented By: PEYTON Co-signed By: JU Titration: 07/11/23 09:42 Dose: 0.45 mcg/kg/min, 20.7 mls/hr Documented By: PEYTON Co-signed By: JU Titration: 07/11/23 09:35 Dose: 0.6 mcg/kg/min, 27.5 mls/hr Documented By: PEYTON Co-signed By: JU Titration: 07/11/23 09:11 Dose: 0.75 mcg/kg/min, 34.4 mls/hr Documented By: PEYTON Co-signed By: JU Admin: 07/11/23 08:42 Dose: 0.5 mcg/kg/min, 23 mls/hr Documented By: PEYTON Co-signed By: JU Fentanyl Citrate (Fentanyl Citrate) 2,500 mcg in 250 mls @ 2.5 mls/hr IV .Q96H [facility]; Protocol Stop: 07/25/23 09:59 Last Titration: 07/11/23 10:20 Dose: 50 mcg/hr, 5 mls/hr Documented By: PEYTON Co-signed By: JU Admin: 07/11/23 10:02 Dose: 25 mcg/hr, 2.5 mls/hr Documented By: PEYTON Co-signed By: JU Propofol (Diprivan) 1,000 mg in 100 mls @ 9.18 mls/hr IV .[id number] [facility]; Protocol Stop: 07/14/23 10:29 Last Admin: 07/11/23 10:30 Dose: 20 mcg/kg/min, 9.2 mls/hr Documented By: PEYTON Co-signed By: JU Discontinued Medications Amiodarone HCl (Amiodarone Iv Bolus & Drip) 1 each IV NOW STA; Protocol Stop: 07/11/23 09:42 Last Admin: 07/11/23 10:31 Dose: Not Given Documented By: EPYTON Fentanyl Citrate (Fentanyl Citrate Pf 100 Mcg/2 Ml Vial) 50 mcg IV NOW STA Stop: 07/11/23 08:10 Last Admin: 07/11/23 09:14 Dose: 25 mcg Documented By: PEYTON Fentanyl Citrate (Fentanyl Citrate Pf 100 Mcg/2 Ml Vial) Confirm Administered Dose 100 mcg .ROUTE .STK-MED ONE Stop: 07/11/23 08:13 Last Admin: 07/11/23 08:24 Dose: Not Given Documented By: PEYTON Sodium Chloride (Nss) 1,000 mls @ 999 mls/hr IV .Q1H1M [facility] Stop: 07/11/23 08:45 Last Infusion: 07/11/23 09:11 Dose: Infused Documented By: Admin: 07/11/23 08:08 Dose: 999 mls/hr Documented By: PEYTON Sodium Chloride (Nss) 1,000 mls @ 999 mls/hr IV .Q1H1M ONE Stop: 07/11/23 08:42 Last Infusion: 07/11/23 09:11 Dose: Infused Documented By: Admin: 07/11/23 08:08 Dose: 999 mls/hr Documented By: PEYTON Cefepime HCl (Maxipime) 2,000 mg in 20 mls @ 5 mls/min IV NOW STA; Protocol Stop: 07/11/23 08:12 Last Admin: 07/11/23 08:19 Dose: 5 mls/min Documented By: PEYTON Sodium Chloride (Nss) 1,000 mls @ 999 mls/hr IV .Q1H1M ONE Stop: 07/11/23 09:28 Last Infusion: 07/11/23 09:36 Dose: Infused Documented By: Admin: 07/11/23 08:30 Dose: 999 mls/hr Documented By: PEYTON Amiodarone HCl/Dextrose (Nexterone / D5w) 150 mg in 100 mls @ 600 mls/hr IV NOW STA Stop: 07/11/23 09:50 Last Admin: 07/11/23 10:31 Dose: Not Given Documented By: PEYTON Ioversol (Optiray 320 100ml) 94 ml IV ONCE ONE Stop: 07/11/23 08:56 Last Admin: 07/11/23 08:56 Dose: 94 ml Documented By: RUTH Miscellaneous (Stat Iv Infusion Titration Per Protocol) 1 each N/A NOW STA Stop: 07/11/23 09:42 Last Admin: 07/11/23 10:31 Dose: Not Given Documented By: PEYTON Critical Care Time Critical Care Time: Yes Total Critical Care Time: 127 I have personally spent greater than 127 minutes of critical care time in the direct management of this patient. This includes bedside care, interpretation of diagnostic studies, and testing, discussion with consultants, patient, and family members, and other required patient management activities. This 127 minutes is in excess of all separately billable procedures. Medical Decision Making Laboratory Data Attestation: I reviewed the patient's lab results. 07/11/23 07:50 07/11/23 07:50 Lab Results 03/07/11/23 07/11/23 Range/Units 07:38 07:48 07:50 WBC 19.87 H (4.8-10.8) K/ul RBC 3.70 L (4.20-5.40) M/uL Hgb 12.1 (12.0-16.0) g/dl POC Hgb 13.9 (12.0-16.0) g/dl Hct 37.5 (37.0-47.0) % POC Hct 41 (37-47) % MCV 101.4 H (80.0-100.0) fL MCH 32.7 (25.0-34.0) pg MCHC 32.3 (32.0-36.0) g/dL RDW Std Deviation 49.9 H (36.4-46.3) fL RDW Coeff of Humberto 13.5 (11.5-14.5) % Plt Count 236 (130-400) K/uL MPV 9.8 (9.4-12.4) fL Immature Gran % (Auto) 1.9 % Neut % (Auto) 85.3 % Lymph % (Auto) 6.1 % [place] % (Auto) 5.8 % Eos % (Auto) 0.7 % Baso % (Auto) 0.2 % Neut # (Auto) 16.96 H (1.40-6.50) K/uL Lymph # (Auto) 1.21 (1.20-3.40) K/uL [place] # (Auto) 1.16 H (0.11-0.59) K/uL Eos # (Auto) 0.14 (0.00-0.50) K/uL Baso # (Auto) 0.03 (0.00-0.20) K/uL Immature Gran # (Auto) 0.37 H (0.01-0.20) K/uL PT 12.4 H (9.0-12.0) Seconds INR 1.1 (0.9-1.1) APTT 30 (21-31) Seconds PTT Ratio 1.1 POC pH (7.35-7.45) POC pCO2 (35-46) mmHg POC pO2 (80-95) mmHg POC HCO3 (19-24) callie/L POC Base Excess (-9-1.8) callie/L POC ABG O2 Sat (90-95) % VBG pH 7.23 L (7.36-7.41) VBG pCO2 56 H (38-50) mmHg VBG pO2 28 mmHg VBG HCO3 24 mmol/L VBG O2 Saturation < 60.0 % VBG Base Excess -4.8 mEq/L POC Sodium 138 (135-144) mmol/L Sodium 140 (136-145) mmol/L POC Potassium 3.9 (3.3-5.0) mmol/L Potassium 3.8 (3.5-5.1) mmol/L POC Chloride 104 (101-112) mmol/L Chloride 108 H (98-107) mmol/L Carbon Dioxide 25 (21-32) mmol/L POC Total CO2 25 (24-31) mmol/L Anion Gap 7 (3-11) POC Anion Gap 14.0 L (16-25) mmol/L POC BUN 31 H (7-18) mg/dl BUN 28 H (6-23) mg/dl Creatinine 1.37 H (0.6-1.2) mg/dl POC Creatinine 1.5 H (0.6-1.3) mg/dl Est Cr Clr Drug Dosing 36.7 ml/min Est GFR ( Amer) 43.0 ml/min Est GFR (Non-Af Amer) 37.1 ml/min BUN/Creatinine Ratio 20.4 H (10-20) Glucose 141 H (70-99(Fasting)) mg/dl POC Glucose (other) 128 H (70-99) mg/dl Lactate 3.3 H* (0.4-2.0) mmol/L Calcium 7.5 L (8.6-10.3) mg/dl POC Ioniz Calcium Esther 0.97 L (1.12-1.32) mmol/l Magnesium 1.6 L (1.7-2.4) mg/dl Total Bilirubin 0.9 (0.2-1.0) mg/dl Direct Bilirubin 0.5 H (0-0.2) mg/dl AST 12 L (13-39) U/L ALT 12 (7-52) U/L Alkaline Phosphatase 60 (34-104) U/L Troponin I High Sens 182.4 H* (0-14) pg/ml B-Natriuretic Peptide (0-100) pg/ml Total Protein 5.0 L (6.0-8.3) gm/dl Albumin 3.0 L (3.4-5.0) gm/dl Lipase 5 L (11-82) U/L Procalcitonin 6.05 H (0-0.5) ng/ml TSH 5.114 H (0.300-4.500) uIu/ml Free T4 1.02 (0.61-1.60) ng/dl Random Cortisol 53.16 mcg/dl Adenovirus (PCR) (NotDetected) B. pertussis DNA (PCR) (NotDetected) B.parapertussis DNA PCR (NotDetected) C. pneumoniae DNA (PCR) (NotDetected) Coronavirus OC43 (PCR) (NotDetected) Coronavirus HKU1 (PCR) (NotDetected) Coronavirus 229E (PCR) (NotDetected) SARS-CoV-2 (PCR) (NotDetected) Coronavirus NL63 (PCR) (NotDetected) Human Metapneumovir PCR (NotDetected) Influenza Type A (PCR) (NotDetected) Influenza Type B (PCR) (NotDetected) M. pneumoniae (PCR) (NotDetected) Parainfluenza 1 (PCR) (NotDetected) Parainfluenza 2 (PCR) (NotDetected) Parainfluenza 3 (PCR) (NotDetected) Parainfluenza 4 (PCR) (NotDetected) RSV (PCR) (NotDetected) Entero/Rhino (PCR) (NotDetected) 07/11/23 07/11/23 07/11/23 Range/Units 07:55 08:38 09:39 WBC (4.8-10.8) K/ul RBC (4.20-5.40) M/uL Hgb (12.0-16.0) g/dl POC Hgb 10.9 L (12.0-16.0) g/dl Hct (37.0-47.0) % POC Hct 32 L (37-47) % MCV (80.0-100.0) fL MCH (25.0-34.0) pg MCHC (32.0-36.0) g/dL RDW Std Deviation (36.4-46.3) fL RDW Coeff of Humberto (11.5-14.5) % Plt Count (130-400) K/uL MPV (9.4-12.4) fL Immature Gran % (Auto) % Neut % (Auto) % Lymph % (Auto) % [place] % (Auto) % Eos % (Auto) % Baso % (Auto) % Neut # (Auto) (1.40-6.50) K/uL Lymph # (Auto) (1.20-3.40) K/uL [place] # (Auto) (0.11-0.59) K/uL Eos # (Auto) (0.00-0.50) K/uL Baso # (Auto) (0.00-0.20) K/uL Immature Gran # (Auto) (0.01-0.20) K/uL PT (9.0-12.0) Seconds INR (0.9-1.1) APTT (21-31) Seconds PTT Ratio POC pH 7.25 L (7.35-7.45) POC pCO2 37 (35-46) mmHg POC pO2 51 L (80-95) mmHg POC HCO3 16 L (19-24) callie/L POC Base Excess -11.0 L (-9-1.8) callie/L POC ABG O2 Sat 80.0 L (90-95) % VBG pH (7.36-7.41) VBG pCO2 (38-50) mmHg VBG pO2 mmHg VBG HCO3 mmol/L VBG O2 Saturation % VBG Base Excess mEq/L POC Sodium 139 (135-144) mmol/L Sodium (136-145) mmol/L POC Potassium 3.6 (3.3-5.0) mmol/L Potassium (3.5-5.1) mmol/L POC Chloride (101-112) mmol/L Chloride (98-107) mmol/L Carbon Dioxide (21-32) mmol/L POC Total CO2 17 L (24-31) mmol/L Anion Gap (3-11) POC Anion Gap (16-25) mmol/L POC BUN (7-18) mg/dl BUN (6-23) mg/dl Creatinine (0.6-1.2) mg/dl POC Creatinine (0.6-1.3) mg/dl Est Cr Clr Drug Dosing ml/min Est GFR ( Amer) ml/min Est GFR (Non-Af Amer) ml/min BUN/Creatinine Ratio (10-20) Glucose (70-99(Fasting)) mg/dl POC Glucose (other) (70-99) mg/dl Lactate 3.6 H* (0.4-2.0) mmol/L Calcium (8.6-10.3) mg/dl POC Ioniz Calcium Esther (1.12-1.32) mmol/l Magnesium (1.7-2.4) mg/dl Total Bilirubin (0.2-1.0) mg/dl Direct Bilirubin (0-0.2) mg/dl AST (13-39) U/L ALT (7-52) U/L Alkaline Phosphatase (34-104) U/L Troponin I High Sens 351.5 H* D (0-14) pg/ml B-Natriuretic Peptide 302 H (0-100) pg/ml Total Protein (6.0-8.3) gm/dl Albumin (3.4-5.0) gm/dl Lipase (11-82) U/L Procalcitonin (0-0.5) ng/ml TSH (0.300-4.500) uIu/ml Free T4 (0.61-1.60) ng/dl Random Cortisol mcg/dl Adenovirus (PCR) Not Detected (NotDetected) B. pertussis DNA (PCR) Not Detected (NotDetected) B.parapertussis DNA PCR Not Detected (NotDetected) C. pneumoniae DNA (PCR) Not Detected (NotDetected) Coronavirus OC43 (PCR) Not Detected (NotDetected) Coronavirus HKU1 (PCR) Not Detected (NotDetected) Coronavirus 229E (PCR) Not Detected (NotDetected) SARS-CoV-2 (PCR) Not Detected (NotDetected) Coronavirus NL63 (PCR) Not Detected (NotDetected) Human Metapneumovir PCR Not Detected (NotDetected) Influenza Type A (PCR) Not Detected (NotDetected) Influenza Type B (PCR) Not Detected (NotDetected) M. pneumoniae (PCR) Not Detected (NotDetected) Parainfluenza 1 (PCR) Not Detected (NotDetected) Parainfluenza 2 (PCR) Not Detected (NotDetected) Parainfluenza 3 (PCR) Not Detected (NotDetected) Parainfluenza 4 (PCR) Not Detected (NotDetected) RSV (PCR) Not Detected (NotDetected) Entero/Rhino (PCR) Not Detected (NotDetected) Imaging Data Attestation: I personally reviewed and interpreted this imaging study as follows: My Impression: Chest x-ray #1: Right lower lobe pneumonia Chest x-ray #2: Right lower lobe pneumonia and ET tube is 1 cm above the prince. Radiologist's Impression: Chest X-Ray 07/11/23 07:38 XR chest 1V portable HISTORY: Sepsis COMPARISON: Chest 06/16/2023. FINDINGS: No pneumothorax. No pleural effusions. The cardiac silhouette is mildly enlarged. There is diffuse interstitial/vascular thickening which has progressed. This favors mild congestive change. There is a hazy airspace opacity within the right midlung zone. This is new compared the prior study. Benign- appearing chondroid lesion again noted within the proximal left humerus. There is a tortuous thoracic aorta. IMPRESSION: 1. Hazy airspace opacity within the right midlung zone. This favors a pneumonia. Follow-up chest x-ray one to 2 months is recommended to ensure resolution. 2. Cardiomegaly with mild congestive change. ACT 112: Negative or not required by law. Electronically signed by: Alexey Araiza M.D. 07/11/2023 8:33 AM Abdomen/Pelvis CT 07/11/23 08:[address] WITH IV CONTRAST CT DOSE: 2346.11 mGy.cm HISTORY: fall TECHNIQUE: Multiaxial CT images of the abdomen and pelvis were performed following the use of intravenous contrast. A dose lowering technique was utilized adhering to the principles of ALARA. COMPARISON STUDY: Abdomen and pelvis CT 01/13/2020. FINDINGS: Right middle lobe airspace opacity likely representing a pneumonia. There is associated right hilar/perihilar soft tissue density best seen on image 10 measuring approximately 4.9 cm. This also favors a component of the pneumonia. Right hilar lymphadenopathy or a perihilar lesion also remain in the differential diagnosis. Mild soft tissue thickening at the bronchus intermedius is noted on image 1. This also bears watching on future examinations. Right basilar subcentimeter nodules measure up to 6 mm remain stable. Therefore, these are likely benign. No pneumoperitoneum. No pneumatosis. There is an old mild superior endplate compression deformity at T12. No acute fractures identified. Heterogeneous enhancement within the liver with periportal edema. There is associated mild gallbladder wall thickening which is likely reactive to the periportal edema. The main portal vein is patent. Normal caliber common bile duct. Dilatation of the main pancreatic duct measuring up to 6 mm. Mild peripancreatic edema is likely due to the periportal edema. An acute pancreatitis could also have a similar appearance. Therefore, recommend correlation with pancreatic enzymes. The spleen, adrenal glands, and left kidney are unremarkable. No hydronephrosis. There is a punctate stone within the right kidney. No hydronephrosis. Trace perihepatic ascites is noted. Calcified plaque within the normal caliber abdominal aorta. No retroperitoneal hematoma or lymphadenopathy. The bladder is decompressed by Hyman catheter. The uterus and bilateral adnexa are unremarkable. Colonic diverticulosis. No evidence for acute diverticulitis. Moderate fecal retention. Normal appendix. No bowel wall thickening or obstruction. IMPRESSION: 1. No acute traumatic process within the abdomen or pelvis. 2. Right middle lobe airspace opacity consistent with a pneumonia. There is also right hilar/perihilar soft tissue density which may represent a component of the pneumonia. However, 1-[address] follow-up recommended to ensure resolution and to exclude the possibility of right hilar lymphadenopathy or a perihilar lesion. 3. Heterogeneous enhancement within the liver with periportal edema. There is associated mild gallbladder wall thickening which is likely reactive to the periportal edema. 4. Dilatation of the main pancreatic duct measuring up to 6 mm. Mild peripancreatic edema is likely due to the periportal edema. An acute pancreatitis could also have a similar appearance. Therefore, recommend correlation with pancreatic enzymes. Follow-up GI consultation recommended for further evaluation of the dilated main pancreatic duct. 5. Right-sided nephrolithiasis. No hydronephrosis. 6. Additional findings as described above. ACT 112: Negative or not required by law. Electronically signed by: Alexey Araiza M.D. 07/11/2023 9:[address] 07/11/23 08:[address] DOSE: HISTORY: fall TECHNIQUE: Multiaxial CT images of the cervical spine were performed and reformatted in the sagittal and coronal plane without the use of contrast. A dose lowering technique was utilized adhering to the principles of ALARA. COMPARISON: None. FINDINGS: No acute fractures. Moderate degenerative disc disease within the cervical spine. Interlobular septal thickening within the lung apices favors mild congestive change. There is a healing left posterior fourth rib fracture. Prevertebral soft tissues and the C1-C2 interval are intact. No pneumothorax. IMPRESSION: No acute fractures within the cervical spine. ACT 112: Negative or not required by law. Electronically signed by: Alexey Araiza M.D. 07/11/2023 9:[address] 07/11/23 08:[address] DOSE: HISTORY: fall TECHNIQUE: Multiaxial CT images of the head were performed without the use of intravenous contrast. Automated exposure control was utilized for this study. A dose lowering technique was utilized adhering to the principles of ALARA. Comparison: Head CT 06/25/2023. Findings: Trace fluid again noted within the right sphenoid sinus. The mastoid air cells are clear. The calvarium and skull base are intact. There is no mass, hematoma, midline shift, acute infarct. White matter hypodensity is nonspecific but suggestive of microvascular ischemic change. The ventricles and sulci demonstrate mild age-related involutional changes. Impression: No significant change compared to the prior study. No acute intracranial abnormality. ACT 112: Negative or not required by law. Electronically signed by: Alexey Araiza M.D. 07/11/2023 9:32 AM Chest X-Ray 07/11/23 09:49 XR chest 1V portable HISTORY: Evaluate ET tube placement. COMPARISON: Chest 07/11/2023. FINDINGS: Endotracheal tube terminates approximately 1.2 cm from the prince. No pneumothorax. Right middle lobe airspace opacity persists. There is interstitial/vascular thickening consistent with mild congestive change. The heart remains mildly enlarged. No pleural effusions. Benign cartilaginous lesion again noted within the proximal left humerus. IMPRESSION: 1. Endotracheal tube terminates approximately 1.2 cm from the prince. 2. Right middle lobe airspace opacity is again noted. Recommend follow-up to resolution. 3. Pulmonary vascular congestion. ACT 112: Negative or not required by law. Electronically signed by: Alexey Araiza M.D. 07/11/2023 10:11 AM ECG Data Attestation: I personally reviewed and interpreted this ECG as follows: Rate (beats per minute): 143 Rhythm: + atrial fibrillation ECG Intervals/blocks: + Normal QRS and + Normal QT-c ECG ST segments: + Normal ST segments Additional Comments: EKG #2 at 0932: Atrial fibrillation with a rate of 103. QRS [address] elevation or ST depression. EKG #3 at 1003: Sinus rhythm with a rate of 94. TN 178 QRS [address] elevation or ST depression MDM Narrative 0736: The patient was evaluated in room B1. A complete history and physical exam was performed Cardiac monitoring: An order was placed for continuous cardiac monitoring. The monitor shows a rate of 130-150 with atrial fibrilation rhythm interpreted by me Sepsis protocols initiated. 2 L normal saline bolus ordered for the patient. 0815: Patient remains hypotensive. Bedside Salgado protocol showed no pericardial effusion/tamponade, FAST exam negative, no AAA, IVC is not collapsed and is plethoric. Chest x-ray reviewed by me shows right-sided infiltrate. Will treat the patient for pneumonia. Spoke with family who states that the patient gets hives when she got penicillin. Family also states that the patient had an unwitnessed fall out of bed this morning. Spoke with pharmacy, will give cefepime despite this and also give vancomycin. Bio fire still pending. Lactate 3.3. 0831: Patient remains tachycardic in atrial fibrillation. Blood pressure is improving and MAP is now greater than 65. Given her unwitnessed fall, patient will be sent to CT to rule out any traumatic injuries. White blood cell count 19. Hyman catheter was placed on the patient and the patient does not have any urine output. Given the patient's lactic acidemia, leukocytosis, decreased urine output, the thought is that the most likely cause of her hypotension is sepsis. We will hold off on any cardioversion at this time. 2036: Spoke with Dr. Bernard HERNÁNDEZ. He recommends an additional 500 cc bolus to the 2 L bolus was already given and starting the patient on phenylephrine and titrating to MAP of 65. He states his pulse rate is still high the patient can be cardioverted. 2111: Patient returns from CT hypotensive and tachycardic in A-fib RVR. Phenylephrine drip increased. Will titrate to a MAP goal of 65. 2141: Patient's heart rate is improved. Creatinine 1.37. High-sensitivity troponin 351.15. BioFire negative. CT head and C-spine negative. CT of the abdomen pelvis does show no acute traumatic process and does confirm the right middle lobe pneumonia. There is also dilatation of the pancreatic duct measuring up to 6 mm with mild peripancreatic edema likely due to periportal edema. Radiology states an acute pancreatitis could also have similar appearance. They recommended follow-up with GI to correlate with pancreatic enzymes. Lipase ordered. It is thought that these findings are most likely due to the rapid fluid boluses for her septic shock. Patient appeared to have converted into normal sinus rhythm on the monitor however then went back into atrial fibrillation. Dr. Wagner at bedside. He recommends starting the patient on amiodarone bolus and drip for her A-fib. He states the patient might need to be intubated. Both he and I spoke with the family about possible intubation. They asked for a few minutes to discuss with her other family members before deciding about intubation. 1005: Family gave okay for intubation. See procedure note. ETT was retracted approximately 1 cm after chest x-ray was shot. After the intubation the patient did convert into a normal sinus rhythm. Amiodarone bolus and drip was held. Heparin drip and bolus was started on the patient as recommended by ICU. Spoke with Dr. Bernabe who will admit the patient. Impression & Plan Septic shock, Pneumonia, Atrial fibrillation with RVR Discharge Plan Visit Data Chief Complaint: Shortness of Breath/Dyspnea Stated Complaint: SOB, ILLNESS ED Provider: Laurent Workman Discharge Problem: Septic shock, Pneumonia, Atrial fibrillation with RVR Patient Disposition: Admitted As Inpatient Forms Stand Alone Forms: My [facility] [employer] Prescriptions Prescriptions: No Action cholecalciferol (vitamin D3) 50 mcg (2,000 unit) capsule 50 mcg PO DAILY naproxen 500 mg tablet 500 mg PO BID PRN (Reason: pain) 90 Days Qty: 180 1RF duloxetine 30 mg capsule,delayed release(DR/EC) 30 mg PO HS 90 Days Qty: 90 1RF Rx Instructions: take along with 60mg capsule to equal 90mg duloxetine 60 mg capsule,delayed release(DR/EC) 60 mg PO HS Qty: 90 1RF Rx Instructions: take along with 30mg capsule to equal 90mg levothyroxine 50 mcg tablet 50 mcg PO DAILY ferrous sulfate 325 mg (65 mg iron) tablet 325 mg PO DAILY omeprazole 40 mg capsule,delayed release(DR/EC) 40 mg PO DAILY melatonin 3 mg tablet 6 mg PO HS liothyronine [Cytomel] 5 mcg tablet 5 mcg PO QAM Qty: 90 PreserVision AREDS [id number] capsule 1 cap PO DAILY calcium carbonate-vitamin D3 500 mg(1,250mg) -200 unit tablet 1 tab PO DAILY multivitamin [Daily Multi-Vitamin] tablet 1 tab PO DAILY armodafinil [Nuvigil] 250 mg tablet 250 mg PO QAM Qty: 90 1RF meloxicam 15 mg tablet 0 mg PO UD Rx Instructions: unable to verify 24 famotidine 40 mg tablet 0 mg PO UD Rx Instructions: unable to verify 07/11/23 Referrals Referrals: Ganesh De La Fuente DO [Primary Care Provider] - Discharge Problem: Pneumonia Qualifiers: Pneumonia type: due to unspecified organism Laterality: right Lung location: u nspecified part of lung Qualified Code(s): J18.9 - Pneumonia, unspecified organism
[2023-07-11 08:00] LABS: iSTAT Creatinine 1.5 mg/dl (0.6-1.3); iSTAT Hemoglobin 13.9 g/dl (12.0-16.0); iSTAT Ionized Calcium 0.97 mmol/l (1.12-1.32); iSTAT Potassium 3.9 mmol/L (3.3-5.0)
[2023-07-11] MEDS: SODIUM CHLORIDE 0.9% 1,000 ML IV ONE ×2 (08:08→08:30)
[2023-07-11] MEDS: SODIUM CHLORIDE 0.9% 1,000 ML IV SCH ×2 (08:08→13:53)
[2023-07-11] MEDS ORDERED: VANCOMYCIN CONSULT ACTIVE PRN ×2 (08:09→11:42)
[2023-07-11 08:13] LABS: Base Excess VBG -4.8 mEq/L; HCO3 VBG 24 mmol/L; Oxygen Saturation VBG < 60.0 %; PCO2 VBG 56 mmHg (38-50); PO2 VBG 28 mmHg; pH VBG 7.23 (7.36-7.41)
[2023-07-11] MEDS: CEFEPIME 2,000 MG/20 ML VIAL IV STA (08:19)
[2023-07-11] MEDS: fentaNYL citrate PF 100 MCG/2 ML VIAL ONE (08:24)
[2023-07-11 08:25] LABS: Basophils # (auto) 0.03 K/uL (0.00-0.20); Basophils % (auto) 0.2 %; Eosinophils # (auto) 0.14 K/uL (0.00-0.50); Eosinophils % (auto) 0.7 %; Hematocrit (blood only) 37.5 % (37.0-47.0); Hemoglobin 12.1 g/dl (12.0-16.0); Immature Granulocytes # (auto) 0.37 K/uL (0.01-0.20); Immature Granulocytes % (auto) 1.9 %; Lymphocytes # (auto) 1.21 K/uL (1.20-3.40); Lymphocytes % (auto) 6.1 %; Mean Corpuscular Hemoglobin 32.7 pg (25.0-34.0); Mean Corpuscular Hgb Conc 32.3 g/dL (32.0-36.0); Mean Corpuscular Volume 101.4 fL (80.0-100.0); Mean Platelet Volume 9.8 fL (9.4-12.4); Monocytes # (auto) 1.16 K/uL (0.11-0.59); Monocytes % (auto) 5.8 %; Neutrophils # (auto) 16.96 K/uL (1.40-6.50); Neutrophils % (auto) 85.3 %; Platelet Count 236 K/uL (130-400); RDW Coefficient of Variation 13.5 % (11.5-14.5); RDW Standard Deviation 49.9 fL (36.4-46.3); White Blood Count 19.87 K/ul (4.8-10.8)
[2023-07-11 08:30] LABS: BUN Creatinine Ratio 20.4 (10-20); Bilirubin Direct 0.5 mg/dl (0-0.2); Bilirubin,Total 0.9 mg/dl (0.2-1.0); Calcium 7.5 mg/dl (8.6-10.3); Creatinine Clr Calc Pharmacy 36.7 ml/min; Est GFR (Non-African American) 37.1 ml/min; Magnesium 1.6 mg/dl (1.7-2.4); Potassium 3.8 mmol/L (3.5-5.1)
[2023-07-11] MEDS: VANCOMYCIN HCL 1,500 MG in SODIUM CHLORIDE 0.9% 500 ML IV ONE (08:30)
[2023-07-11 08:34] LABS: INR 1.1 (0.9-1.1); Partial Thromboplastin Ratio 1.1; Partial Thromboplastin Time 30 Seconds (21-31); Prothrombin Time 12.4 Seconds (9.0-12.0)
--- NOTE | 2023-07-11 08:34 | XRay Report ---
XR chest 1V portable HISTORY: Sepsis COMPARISON: Chest 06/16/2023. FINDINGS: No pneumothorax. No pleural effusions. The cardiac silhouette is mildly enlarged. There is diffuse interstitial/vascular thickening which has progressed. This favors mild congestive change. Th ere is a hazy airspace opacity within the right midlung zone. This is new compared the prior study. B enign-appearing chondroid lesion again noted within the proximal left humerus. There is a tortuous th oracic aorta. IMPRESSION: 1. Hazy airspace opacity within the right midlung zone. This favors a pneumonia. Follow-up chest x-ra y one to 2 months is recommended to ensure resolution. 2. Cardiomegaly with mild congestive change. ACT 112: Negative or not required by law. Electronically signed by: Alexey Araiza M.D. 07/11/2023 8:33 AM
[2023-07-11] MEDS ORDERED: STAT IV Infusion **Titration per Protocol STA ×2 (08:38→10:16)
--- NOTE | 2023-07-11 08:40 | Critical Care Consultation ---
Date of Consultation July 11, 2023 Assessment & Plan (1) Atrial fibrillation with RVR: (2) GERD (gastroesophageal reflux disease): (3) Pneumonia: (4) Sepsis: (5) Shock circulatory: (6) Nephrolithiasis: (7) Hypothyroidism: (8) Multiple sclerosis: Plan Reason Critically Ill: 78-year-old female present to the hospital with generalized weakness and shortness of breath Past medical history: Multiple sclerosis, hypothyroidism, GERD, anxiety/depression Patient sent to the ICU for septic shock with new onset A-fib RVR Neuro - [facility] ICU: Unable to assess --Metabolic encephalopathy Likely secondary to underlying sepsis and shock Follow-up TSH Sodium, calcium, glucose within normal limits CT head 07/11/2023 negative for any acute intracranial abnormality -- Multiple sclerosis Takes armodafinil for generalized fatigue. Not on any medication for MS right now. Used to be on Copaxone, has been off of it since 2019 Cardiac - -- Shock with new onset A-fib RVR Multifactorial A-fib with RVR as well as possible sepsis from right lower lobe pneumonia Try to control the heart rate as much as possible if it is still not controlled then cardioversion will be thought of Empiric antibiotic Try to keep MAP greater than 65, phenylephrine with drug of choice right now --Elevated troponin Likely type II CO Continue to trend EKG 07/11/2023 7:40 AM: A-fib, normal axis, no ST-T wave changes appreciated Respiratory - --VDRF Secondary to acute hypoxic respiratory failure Likely secondary to multilobar pneumonia Daily sedation holidays Continue broad-spectrum antibiotics GI - -- No acute issues RENAL/LYTES - -- CARLO Follow-up urine lites Monitor BUN/creatinine Avoid nephrotoxic medications Strict ins and outs -- Nephrolithiasis right-sided with no hydronephrosis - Continue with Hyman catheter ENDO - -- Hypothyroidism TSH 5.1 with free T4 within normal limit HEME - -- Macrocytic anemia Monitor H&H ID - -- Sepsis with multilobar pneumonia Continue with broad-spectrum antibiotics Given the allergy to penicillin, continue with cephalosporin and add Flagyl Urine Legionella and mycoplasma antigen has been ordered Continue with levofloxacin for the time being, QTc 383 on 07/11/2023 --Prophylaxis VTE: Heparin drip GI: Pantoprazole Lines: Peripheral Diet: N.p.o. Plan: Given the significant oxygen requirement and poor mental status I think it will be appropriate to intubate the patient. This was discussed with Dr. Workman as well as family and they both are in agreement to it. I will add levofloxacin to the regimen along with Flagyl. Follow sputum culture. Start her on the regimen of hydrocortisone as she has severe pneumonia requiring vasopressors. Follow-up 2D echo I have personally spent 62 minutes of critical care time in the direct management of this patient. This is a life/limb threatening event. This includes time spent evaluating patient, direct bedside care, chart review, placing orders, interpretation of diagnostic studies, discussion with consultants, patient, and family members, as well as other required patient management activities. This time is exclusive of all separately billable procedures, and teaching time and separate from and in addition to any other critical care service time. History of Present Illness History of Present Illness 78-year-old female present to the hospital with generalized weakness and shortness of breath Past medical history: Multiple sclerosis, hypothyroidism, GERD, anxiety/depression Patient sent to the ICU for septic shock with new onset A-fib RVR Signout was given by Dr. Workman. At the time of examination patient was on 0.75 of phenylephrine with MAP in the high 80s to low 90s. I was able to gradually go down on the phenylephrine to 0.45 before I left the room Patient was saturating 76-77% on 30 L high flow, 100%. I went up on high flow to 40 L. This did increase her saturation to the high 80s. She was somnolent but easily arousable and answering questions appropriately She did complain of some chest pain when she takes deep breath and on the right side. No nausea or vomiting. Denies any abdominal pain. Daughter did have flu recently. Social history: Lifetime non-smoker Allergies Allergy/AdvReac Type Severity Reaction Status Date / Time latex Allergy Intermediate RASH Verified 03/16/23 10:26 interferon beta-1a Allergy Mild UNKNOWN Verified 03/16/23 10:26 gabapentin Allergy Unknown unknown Verified 03/16/23 10:26 Penicillins Allergy Unknown UNKNOWN Verified 03/16/23 10:26 nickel AdvReac Unknown SKIN Verified 03/16/23 10:26 IRRITATION baclofen AdvReac known Verified 03/16/23 10:26 MRI CONTRAST Allergy Mild headaches Uncoded 03/16/23 10:26 Home Medications Medication Instructions Recorded Confirmed Type calcium carbonate 500 mg-vitamin 1 tab PO DAILY 12/03/18 07/11/23 History D3 5 mcg (200 unit) tablet liothyronine 5 mcg tablet (Cytomel) 5 mcg PO QAM #90 tabs 12/03/18 07/11/23 History melatonin 3 mg tablet 6 mg PO HS 12/03/18 07/11/23 History multivitamin (Daily Multi-Vitamin 1 tab PO DAILY 12/03/18 07/11/23 History tablet) vitamins A,C,F-ijdf-oggpdr 4,296 1 cap PO DAILY 12/03/18 07/11/23 History mcg-226 mg-90 mg capsule (PreserVision AREDS) cholecalciferol (vitamin D3) 50 50 mcg PO DAILY 02/05/21 07/11/23 History mcg (2,000 unit) capsule ferrous sulfate 325 mg (65 mg 325 mg PO DAILY 10/11/21 07/11/23 History iron) tablet levothyroxine 50 mcg tablet 50 mcg PO DAILY 10/11/21 07/11/23 History naproxen 500 mg tablet 500 mg PO BID PRN pain 90 days 10/20/22 07/11/23 Rx #180 tabs omeprazole 40 mg capsule,delayed 40 mg PO DAILY 03/16/23 07/11/23 History release duloxetine 30 mg capsule,delayed 30 mg PO HS 90 days #90 caps 04/14/23 07/11/23 Rx release duloxetine 60 mg capsule,delayed 60 mg PO HS #90 caps 04/14/23 07/11/23 Rx release armodafinil 250 mg tablet (Nuvigil) 250 mg PO QAM #90 tabs 05/15/23 07/11/23 Rx famotidine 40 mg tablet 0 mg PO UD 07/11/23 07/11/23 History meloxicam 15 mg tablet 0 mg PO UD 07/11/23 07/11/23 History Patient History Medical History (Updated 07/11/23 @ 15:44 by Steve Wagner MD, [facility]) GERD (gastroesophageal reflux disease) Osteoarthritis Degenerative disc disease Chronic back pain Compression fracture currently in a back brace --> from an accident 12/2019. Migraine Cervical disc disease Macular degeneration Multiple sclerosis H/O Rishi thyroiditis Surgical History History of section S/P ear surgery Left ear - zygomatic arch surgery History of colonoscopy H/O hand surgery right hand H/O foot surgery bilateral Family History Father Colon cancer Mother Dementia Aunt Breast cancer Lung cancer Other No family history of adverse response to anesthesia Social History Smoking Status: Never smoker Second Hand Exposure: No; Do You Dip or Chew Tobacco: No; Hx Alcohol Use: No Hx Substance Use: No Preferred Language: Iranian Communication Ability: Effective Visual Impairment: No Limitations Hearing Ability: Normal Pouch Maker Required: No Beliefs That Will Affect Care: None marital status: Current Living Situation: Spouse current occupational status: retired Feels Safe at Home: Yes Assistive Devices: Cane, Denture - Upper, Denture - Lower and Hearing Aid - Bilateral Review of Systems 2 Review of Systems: All systems reviewed & are unremarkable except as noted in HPI & below Physical Exam 2 Physical Exam: Constitutional: No acute distress HEENT: EOMI, PERRLA Respiratory system: Decreased air entry bilaterally, no wheeze, no rhonchi, positive crackles bilaterally more on the right side CVS: S1-S2 positive, no murmurs or gallops, irregular Abdomen: Soft, nontender, nondistended, positive bowel sounds x4 Extremities: +1 pulses bilaterally radialis/ dorsalis pedis, no cyanosis, no edema Neuro: Somnolent but easily arousable, oriented to self Psych: Flat mood and affect G/U: Positive Hyman Skin: no rashes, warm and dry Lymphatic: no cervical or axillary lymphadenopathy Results & Data Results & Data Vital Signs (Past 12 Hours) Vital Signs Temp Pulse Resp BP BP Pulse Ox O2 Del Method 07/11/23 07:58 36.1 C L 80/40 L 07/11/23 07:56 135 H 07/11/23 07:55 89 L Nasal Cannula 07/11/23 07:46 150 H 28 H 73/53 L 90 Room Air O2 Flow Rate 07/11/23 07:58 07/11/23 07:56 07/11/23 07:55 2 07/11/23 07:46 Laboratory Results 07/11/23 07:50 03/30/24 07:50 Coding Level of Care Code 58108 CRITICAL CARE 1ST 30-74M Diagnoses Atrial fibrillation with RVR I48.91 GERD (gastroesophageal reflux disease) K21.9 Pneumonia J18.9 Sepsis A41.9 Shock circulatory R57.9 Nephrolithiasis N20.0 Hypothyroidism E03.9 Multiple sclerosis G35 Time Spent (min) 62
[2023-07-11] MEDS: PHENYLEPHRINE/NSS 25 MG/250 ML BAG IV SCH (08:42)
[2023-07-11 08:45] LABS: Thyroid Stimulating Hormone 5.114 uIu/ml (0.300-4.500)
[2023-07-11 08:46] LABS: Troponin I High Sensitivity 182.4 pg/ml (0-14)
[2023-07-11] MEDS: OPTIRAY 320 100ml IV ONE (08:56)
[2023-07-11 08:57] LABS: iSTAT Arterial Blood Gas HCO3 16 meg/L (19-24); iSTAT Arterial Blood Gas pCO2 37 mmHg (35-46); iSTAT Arterial Blood Gas pH 7.25 (7.35-7.45); iSTAT Arterial Blood Gas pO2 51 mmHg (80-95); iSTAT Carbon Dioxide 17 mmol/L (24-31); iSTAT Hematocrit 32 % (37-47); iSTAT Hemoglobin 10.9 g/dl (12.0-16.0); iSTAT Potassium 3.6 mmol/L (3.3-5.0); iSTAT Sodium 139 mmol/L (135-144)
[2023-07-11 09:02] LABS: Adenovirus PCR Not Detected (NotDetected); Bordetella parapertussis PCR Not Detected (NotDetected); Bordetella pertussis PCR Not Detected (NotDetected); Chlamydia pneumoniae PCR Not Detected (NotDetected); Coronavirus 229E PCR Not Detected (NotDetected); Coronavirus CoV-2 (COVID19)PCR Not Detected (NotDetected); Coronavirus HKU1 PCR Not Detected (NotDetected); Coronavirus NL63 PCR Not Detected (NotDetected); Coronavirus OC43PCR Not Detected (NotDetected); Human Metapneumovirus PCR Not Detected (NotDetected); Influenza A PCR Not Detected (NotDetected); Influenza B PCR Not Detected (NotDetected); Mycoplasma pneumoniae PCR Not Detected (NotDetected); Parainfluenza Virus 1 PCR Not Detected (NotDetected); Parainfluenza Virus 2 PCR Not Detected (NotDetected); Parainfluenza Virus 3 PCR Not Detected (NotDetected); Parainfluenza Virus 4 PCR Not Detected (NotDetected); Respiratory Syncytial VirusPCR Not Detected (NotDetected); Rhinovirus/Enterovirus PCR Not Detected (NotDetected)
[2023-07-11] MEDS: fentaNYL citrate PF 100 MCG/2 ML VIAL IV STA (09:14)
[2023-07-11 09:23] LABS: T4 Free Thyroxine 1.02 ng/dl (0.61-1.60)
--- NOTE | 2023-07-11 09:30 | CT Scan Report ---
ABDOMEN AND PELVIS CT WITH IV CONTRAST CT DOSE: 2346.11 mGy.cm HISTORY: fall TECHNIQUE: Multiaxial CT images of the abdomen and pelvis were performed following the use of intrave nous contrast. A dose lowering technique was utilized adhering to the principles of ALARA. COMPARISON STUDY: Abdomen and pelvis CT 01/13/2020. FINDINGS: Right middle lobe airspace opacity likely representing a pneumonia. There is associated rig ht hilar/perihilar soft tissue density best seen on image 10 measuring approximately 4.9 cm. This als o favors a component of the pneumonia. Right hilar lymphadenopathy or a perihilar lesion also remain in the differential diagnosis. Mild soft tissue thickening at the bronchus intermedius is noted on im age 1. This also bears watching on future examinations. Right basilar subcentimeter nodules measure u p to 6 mm remain stable. Therefore, these are likely benign. No pneumoperitoneum. No pneumatosis. The re is an old mild superior endplate compression deformity at T12. No acute fractures identified. Hete rogeneous enhancement within the liver with periportal edema. There is associated mild gallbladder wa ll thickening which is likely reactive to the periportal edema. The main portal vein is patent. Jojo l caliber common bile duct. Dilatation of the main pancreatic duct measuring up to 6 mm. Mild peripan creatic edema is likely due to the periportal edema. An acute pancreatitis could also have a similar appearance. Therefore, recommend correlation with pancreatic enzymes. The spleen, adrenal glands, and left kidney are unremarkable. No hydronephrosis. There is a punctate stone within the right kidney. No hydronephrosis. Trace perihepatic ascites is noted. Calcified plaque within the normal caliber abd ominal aorta. No retroperitoneal hematoma or lymphadenopathy. The bladder is decompressed by Hyman ca theter. The uterus and bilateral adnexa are unremarkable. Colonic diverticulosis. No evidence for acu te diverticulitis. Moderate fecal retention. Normal appendix. No bowel wall thickening or obstruction . IMPRESSION: 1. No acute traumatic process within the abdomen or pelvis. 2. Right middle lobe airspace opacity consistent with a pneumonia. There is also right hilar/perihila r soft tissue density which may represent a component of the pneumonia. However, 1-[address] f ollow-up recommended to ensure resolution and to exclude the possibility of right hilar lymphadenopat hy or a perihilar lesion. 3. Heterogeneous enhancement within the liver with periportal edema. There is associated mild gallbla dder wall thickening which is likely reactive to the periportal edema. 4. Dilatation of the main pancreatic duct measuring up to 6 mm. Mild peripancreatic edema is likely d ue to the periportal edema. An acute pancreatitis could also have a similar appearance. Therefore, re commend correlation with pancreatic enzymes. Follow-up GI consultation recommended for further evalua tion of the dilated main pancreatic duct. 5. Right-sided nephrolithiasis. No hydronephrosis. 6. Additional findings as described above. ACT 112: Negative or not required by law. Electronically signed by: Alexey Araiza M.D. 07/11/2023 9:28 AM
--- NOTE | 2023-07-11 09:35 | CT Scan Report ---
HEAD CT NONCONTRAST CT DOSE: HISTORY: fall TECHNIQUE: Multiaxial CT images of the head were performed without the use of intravenous contrast. A utomated exposure control was utilized for this study. A dose lowering technique was utilized adheri ng to the principles of ALARA. Comparison: Head CT 06/25/2023. Findings: Trace fluid again noted within the right sphenoid sinus. The mastoid air cells are clear. T he calvarium and skull base are intact. There is no mass, hematoma, midline shift, acute infarct. Whi te matter hypodensity is nonspecific but suggestive of microvascular ischemic change. The ventricles and sulci demonstrate mild age-related involutional changes. Impression: No significant change compared to the prior study. No acute intracranial abnormality. ACT 112: Negative or not required by law. Electronically signed by: Alexey Araiza M.D. 07/11/2023 9:32 AM
--- NOTE | 2023-07-11 09:37 | CT Scan Report ---
CERVICAL SPINE CT CT DOSE: HISTORY: fall TECHNIQUE: Multiaxial CT images of the cervical spine were performed and reformatted in the sagittal and coronal plane without the use of contrast. A dose lowering technique was utilized adhering to th e principles of ALARA. COMPARISON: None. FINDINGS: No acute fractures. Moderate degenerative disc disease within the cervical spine. Interlobu lar septal thickening within the lung apices favors mild congestive change. There is a healing left p osterior fourth rib fracture. Prevertebral soft tissues and the C1-C2 interval are intact. No pneumot horax. IMPRESSION: No acute fractures within the cervical spine. ACT 112: Negative or not required by law. Electronically signed by: Alexey Araiza M.D. 07/11/2023 9:36 AM
[2023-07-11] MEDS ORDERED: 0.2 MICRON FILTER SET 1 EACH IV STA (09:41)
[2023-07-11] MEDS ORDERED: fentaNYL BOLUS from BAG IV PRN (09:57)
[2023-07-11] MEDS: fentaNYL citrate 2,500 MCG/250 ML BAG IV SCH (10:02)
--- OUTSIDE RECORDS SUMMARY | 2023-07-11 10:11 | External Medical Summary | Continuity of Care Document ---
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 Role Phone Ganesh De La Fuente Primary Care Physician [phone] [id number] Date(s): 06/26/23 - 06/26/23 [facility] [address] [facility] [address] [facility] [address] [place], [phone] Encounter Diagnosis Other fatigue(Final) - Multiple sclerosis(Final) - Deficiency of other specified B group vitamins(Final) - Anemia, unspecified(Final) - Hypothyroidism, unspecified(Final) - Discharge Disposition: Home or Self Care Attending Physician: DO De La Fuente Franklin J Referring Physician: DO De La Fuente Franklin J Allergies, Adverse Reactions, Alerts Substance Reaction Severity Status gabapentin unknown Active penicillins unknown Active Avonex unknown Active Nickel unknown Active IVP dye unknown Active Immunizations Given and Recorded Vaccine Date Status Refusal Reason influenza virus vaccine, inactivated 02/05/22 Give n influenza virus vaccine, inactivated 1 01/26/20 Re corded pneumococcal 13-valent vaccine 09/02/18 Given 1Result Comment: [facility] armodafinil 250 mg oral tablet Start: 06/23/19 9:49:00 EDT, 1 tab, PO, Daily Start Date: 06/23/19 Status: Ordered calcium-vitamin D 500 mg-200 intl units (5 mcg) oral tablet Start: 01/30/20 11:19:00 EDT Start Date: 01/30/20 Status: Ordered DULoxetine 30 mg oral delayed release capsule Start: 06/16/23 11:34:00 EST, 1 cap, PO, Daily, total 90 mg daily (takes with 60 mg as well) Start Date: 06/16/23 Status: Ordered DULoxetine 60 mg oral delayed release capsule Start: 07/02/20 9:27:00 EDT, 1 cap, PO, Daily, Disp# 90 cap, Refills: 3, Pharmacy: [facility] Start Date: 07/02/20 Stop Date: 06/27/21 Status: Ordered famotidine 40 mg oral tablet Start: 06/16/23 11:46:00 EST, 1 tab, PO, qhs, Disp# 90 tab, Refills: 1, Pharmacy: [facility] Start Date: 06/16/23 Stop Date: 12/13/23 Status: Ordered ferrous sulfate 325 mg (65 mg elemental iron) oral delayed release tablet Start: 12/10/22 18:04:00 EDT, 1 tab, PO, Daily, Disp# 90 tab, Refills: 3, Pharmacy: [facility] Start Date: 12/10/22 Stop Date: 12/05/23 Status: Ordered liothyronine 5 mcg oral tablet Start: 01/05/23 9:24:00 EDT, 1 tab, PO, Daily Start Date: 01/05/23 Status: Ordered melatonin 3 mg oral tablet Start: 02/17/18 14:37:00 EST, 2 tab, PO, qhs, PRN: Insomnia Start Date: 02/17/18 Status: Ordered meloxicam 15 mg oral tablet Start: 04/28/23 15:29:00 EST, 1 tab, PO, Daily, Disp# 90 tab, Refills: 3, Note to Pharmacy: [facility] address, Pharmacy: [facility] Start Date: 04/28/23 Stop Date: 04/22/24 Status: Ordered naproxen 500 mg (as sodium) oral tablet, extended release Start: 02/17/18 14:36:00 EST, 1 tab, PO, bid, PRN: as needed for pain Start Date: 02/17/18 Status: Ordered omeprazole 40 mg oral delayed release capsule Start: 01/05/23 9:46:00 EDT, 1 cap, PO, qAM, Disp# 90 cap, Refills: 3, Pharmacy: [facility] Start Date: 01/05/23 Stop Date: 12/31/23 Status: Ordered PreserVision AREDS 2 oral capsule Start: 02/17/18 14:34:00 EST Start Date: 11/7/18 Status: Ordered Synthroid 50 mcg (0.05 mg) oral tablet Start: 10/23/22 20:19:00 EDT, 1 tab, PO, Daily, Disp# 90 tab, Refills: 3, Pharmacy: [facility] Start Date: 10/23/22 Stop Date: 10/18/23 Status: Ordered Vitamin D3 2000 intl units (50 mcg) oral capsule Start: 01/30/20 11:20:00 EDT, 2 times weekly Start Date: 01/30/20 Status: Ordered Problem List Condition Confirmation Course Effective Dates Status Health Status Informant Back pain Confirmed Active Essential (hemorrhagic) thrombocythemia Confirmed Active 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 Confirmed Active Pain in both feet Confirmed Active Left foot pain Confirmed Active Left lumbar radiculopathy Confirmed Active Multiple sclerosis Confirmed Active Nail fungus Confirmed Active Tinea unguium Confirmed Active Peripheral vascular disease Confirmed Active Mild emphysema 1 Confirmed Active Depression, major, recurrent, mild Confirmed Active 1See outside rad/study 10/31/20 10/17/20 XR Chest PA, lat, obliques FINDINGS: Mild emphysema Procedures Procedure Date Related Diagnosis Body Site Status Eye examination 1 06/04/21 Complet ed X-ray tomography of pelvis a nd left hip 2 02/04/21 Completed Chest x-ray 3 10/17/20 Completed X-ray of rib 4 10/09/20 Completed X-ray of thoracic spine 5 10/09/20 Completed DEXA - dual energy X-ray absorptiometry 6 03/26/20 Completed Phacoemulsification of catar act with intraocular lens implantation 7 02/29/[address] of abdomen and pelvis 8 01/13/20 Completed Shoulder X-ray 9 01/13/20 Complete d Eye examination 01/02/20 Completed Diagnostic mammogram 10 09/07/19 C ompleted CXR - Chest X-ray 11 03/14/19 Comp leted Diagnostic mammogram 12 03/14/19 C ompleted Mammogram 13 02/25/19 Completed MRI of lumbar spine 14 06/16/18 Co mpleted Ultrasound guided steroid in jection of left lateral hip 15 04/27/18 Completed Hip X-ray 16 03/30/18 Completed Shoulder X-ray 17 03/10/18 Complet ed Mammogram 18 02/19/18 Completed delivery Complet ed Foot 19 Completed Hand 20 Completed 1OD: Dcc20/50+2 OS: Dcc20/20 2IMPRESSION: Mild osteoarthritis without acute fracture. 3No acute process. No evidence for left upper lobe nodule. 41. No acute rib fractures. No pneumothorax. 2. Emphysema. 3. Possible 1mm nodular density within the left upper lobe. Follow-up nonemergent dedicated chest CT is recommended for further evaluation. 5Osteopenia, chronic changes, and hyperkyphosis. No acute bony abnormalities is identified. 610 year probability of fracture Major osteoporotic: 22.9% Hip 6.6% A follow-up exam is recommended in March 2022. 7Right eye 8Impression: No evidence of bowel obstruction. No evidence of free air. Normal appendix No evidence of acute diverticulitis Fecal retention Interval development of a superior endplate T12 compression fracture Punctate bilateral renal calculi. No hydronephrosis. 9Impression: No fractures or dislocations identified. 10Diffuse nodularity of the right breast with round and oval circumscribe subcentimeteres masses. Thedominant circumscribed 6.6 mm mass in the right upper outerquadrant is thought to correlate with a cyst on ultrasound seen in the 10:00 axis, 7 cm from the nipple that appears clearly more anechoic and cystic on the current US. No further close f/u is needed at this time. These findings are most compatible with benign fibrocystic change. Recommend return to annual screening mammogram schedule, next due February 2020. These results and recommendations were discussed with the patient at the time of the exam. 11No acute process. 12With Targeted US Right breast: There is diffuse nodularity of the right breast, most likely representing multiple cysts/fibrocystic change change. The most prominant partially circumscribed and lobulated 6.6mm mass in the upper outer middle to posterior right breast mammographically is thought to correlate with probable complicated cyst seen in the 10:00 axis of the right breast on US. Given that this finding does not meet thesonographic criteria for aq simple cyst, a short interval follow-up right diagnostic tomosynthesis mammogram and repeat targeted US is recommended to ensure stability in 6 months. 13Cat 0- incomplete 14Impression: Mild multilevel degenerative changes with mild neural foraminal narrowing as detailed above. No significant spinal canal stenosis. 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 16no acute fracture or dislocation. 171. Mild degenerative changes without acute fracture or dislocation. 2. Demineralized appearance of the bones. 3. chondroid lesion of the left proximal humerus measures up to 6.4 cm without aggressive features identified suggesting on endochondroma. 18There is no mammographic evidence of malignancy. A 1yr screening mammogram is recommended. 19both 20right Results Laboratory List Name Date Complete Blood Count w Differential (CBC ,DIFFH) 06/26/23 Comprehensive Metabolic Panel (COMP META B PANEL) 06/26/23 Lipid Profile (LIPOPROTEINS) 06/26/23 T4, Free (T4, FREE) 06/26/23 Thyroid Stimulating Hormone (TSH) 4 Vitamin B12 Level (VITAMIN B12) 06/26/23 Most recent to oldest [Reference Range]: 1 eGFR CKD-EPI [>60 mL/min/1.73 m2] 90 mL/ min/1.73 m2 1 (06/26/23 9:15 AM) Non-HDL 143 mg/dL 2 (06/26/23 9:15 AM) Estimated CrCl 68.20 mL/min (06/26/23 10:00 AM) MPV [9.0-12.2 fL] 9.2 fL (06/26/23 9:15 AM) Immature Gran% 0.0 % (06/26/23 9:15 AM) Neut% 54.6 % (06/26/23 9:15 AM) Lymph% 29.9 % (06/26/23 9:15 AM) [place]% 9.0 % (06/26/23 9:15 AM) Baso% 0.7 % (06/26/23 9:15 AM) Eos% 5.8 % (06/26/23 9:15 AM) Immat Gran, Abs [0-0.4 K/uL] 0.00 K/uL 3 (06/26/23 9:15 AM) Neut, Abs [2.0-7.7 K/uL] 2.35 K/uL (06/26/23 9:15 AM) Lymph, Abs [1.0-3.4 K/uL] 1.29 K/uL (06/26/23 9:15 AM) [place], Abs [0-1.0 K/uL] 0.39 K/uL (06/26/23 9:15 AM) Baso, Abs [0-0.1 K/uL] 0.03 K/uL (06/26/23 9:15 AM) Eos, Abs [0-0.5 K/uL] 0.25 K/uL (06/26/23 9:15 AM) Type of Diff: AUTO *Unknown* (06/26/23:15 AM) RDW [11.5-14.2 %] 13.4 % (06/26/23 9:15 AM) Anion Gap [5-14 mmol/L] 5 mmol/L (06/26/23:15 AM) Alb [3.5-5.0 g/dL] 3.9 g/dL (06/26/23 9:15 AM) Alk Phos [38-126 unit/L] 70 unit/L (06/26/23:15 AM) ALT [<35 unit/L] 23 unit/L (06/26/23 9:15 AM) AST [15-46 unit/L] 27 unit/L (06/26/23 9:15 AM) B12 [211-946 pg/mL] 499 pg/mL (06/26/23 9:15 AM) BUN [7-20 mg/dL] 25 mg/dL *HI* (06/26/23 9:15 AM) Ca [8.4-10.2 mg/dL] 9.1 mg/dL (06/26/23 9:15 AM) Chol/HDL 2 (06/26/23:15 AM) Chol [125-200 mg/dL] 252 mg/dL *HI* (06/26/23 9:15 AM) Cl- [96-107 mmol/L] 107 mmol/L (06/26/23 9:15 AM) HCO3 [22-30 mmol/L] 29 mmol/L (06/26/23 9:15 AM) Cret [0.60-1.00 mg/dL] 0.67 mg/dL (06/26/23 9:15 AM) Glu [74-106 mg/dL] 97 mg/dL (06/26/23 9:15 AM) Hct [35-44 %] 42.5 % (06/26/23 9:15 AM) HDL [>35 mg/dL] 109 mg/dL (06/26/23 9:15 AM) Hgb [11.7-15.0 g/dL] 14.0 g/dL (06/26/23 9:15 AM) K [3.5-5.1 mmol/L] 4.4 mmol/L (06/26/23 9:15 AM) LDL Chol, Calculated [50-130 mg/dL] 130 mg/dL (06/26/23 9:15 AM) MCH [28-33 pg] 32.9 pg (06/26/23:15 AM) MCHC [32-36 g/dL] 32.9 g/dL (06/26/23:15 AM) MCV [81-96 fL] 100.0 fL *HI* (06/26/23:15 AM) Na [137-145 mmol/L] 141 mmol/L (06/26/23:15 AM) Plts [150-350 K/uL] 276 K/uL (06/26/23 9:15 AM) RBC [3.90-5.00 M/uL] 4.25 M/uL (06/26/23 9:15 AM) Free T4 [0.70-1.48 ng/dL] 0.86 ng/dL 4 (06/26/23 9:15 AM) T Bili [0.2-1.3 mg/dL] 0.7 mg/dL (06/26/23 9:15 AM) Prot [6.3-8.2 g/dL] 6.7 g/dL (06/26/23 9:15 AM) TG [<200 mg/dL] 66 mg/dL (06/26/23 9:15 AM) TSH [0.47-4.68 uIU/mL] 2.18 uIU/mL 5 (06/26/23 9:15 AM) WBC [4.0-10.4 K/uL] 4.31 K/uL (06/26/23 9:15 AM) 1Result Comment: Testing Performed By: Dept of Pathology [facility] [address], [address], [place] [address] 2Result Comment: Testing Performed By: Dept of Pathology [facility] [address], [address], [place] [address] 3Result Comment: Testing Performed By: Dept of Pathology [facility] [address], [address], [place] [address] 4Result Comment: Testing Performed By: Dept of Pathology [facility] [address], [address], [place] [address] 5Result Comment: Testing Performed By: Dept of Pathology [facility] [address], [address], [place] [address] Social History Social History Type Response Smoking Status Never smoked cigaret elvira Sex Female Patient Care team information Care Team Personnel Name: DO De La Fuente Franklin J Position: Physician - Family Med Member Role: Primary Care Provider Address: Address: [address] [facility] [address] [facility] [address] [address] [place] [address] Care Team Related Persons Name: JOSE A LUCERO Address: home [address] [place], [place] [id number]
--- NOTE | 2023-07-11 10:13 | XRay Report ---
XR chest 1V portable HISTORY: Evaluate ET tube placement. COMPARISON: Chest 07/11/2023. FINDINGS: Endotracheal tube terminates approximately 1.2 cm from the prince. No pneumothorax. Right m iddle lobe airspace opacity persists. There is interstitial/vascular thickening consistent with mild congestive change. The heart remains mildly enlarged. No pleural effusions. Benign cartilaginous lesi on again noted within the proximal left humerus. IMPRESSION: 1. Endotracheal tube terminates approximately 1.2 cm from the prince. 2. Right middle lobe airspace opacity is again noted. Recommend follow-up to resolution. 3. Pulmonary vascular congestion. ACT 112: Negative or not required by law. Electronically signed by: Alexey Araiza M.D. 07/11/2023 10:11 AM
[2023-07-11] MEDS ORDERED: PROPOFOL BOLUS FROM BAG IV PRN (10:16)
[2023-07-11] MEDS ORDERED: fentaNYL citrate 2,500 MCG/250 ML BAG IV SCH (10:30)
[2023-07-11] MEDS: propofoL 1,000 MG/100 ML VIAL IV SCH (10:30)
[2023-07-11] MEDS: AMIODARONE / D5W 150 MG/100 ML BAG IV STA (10:31)
[2023-07-11] MEDS: AMIODARONE IV BOLUS & DRIP IV STA (10:31)
[2023-07-11] MEDS: STAT IV Infusion **Titration per Protocol STA ×2 (10:31→12:15)
[2023-07-11 10:32] LABS: Appearance Urine Cloudy (Clear); Bacteria Urine Automated 2+ (Negative); Bilirubin Urine Negative (Negative); Blood Urine Trace (Negative); Color Urine Orange; Epithelial Cell Urine Auto >30 /lpf (0-5); Glucose Urine UA Trace (Negative); Ketones Urine Trace (Negative); Leukocyte Esterase Urine 1+ (Negative); Nitrite Urine Positive (Negative); Protein Urine 3+ (Negative); Specific Gravity Urine > 1.045 (1.000-1.030); Urobilinogen Urine Negative (Negative); WBC Urine Automated >30 /hpf (0-5); pH Urine 5.5 (4.5-7.5)
[2023-07-11] MEDS ORDERED: MAGNESIUM SULFATE / D5W 1 GM/100 ML BAG IV SCH (10:45)
[2023-07-11 10:49] LABS: Creatinine Urine Random 91.1 mg/dl; Potassium Random Urine 41.7 mmol/L
--- NOTE | 2023-07-11 10:54 | History & Physical Report ---
Date of Service July 11, 2023 Assessment & Plan (1) Sepsis: Plan: Sepsis due to pneumonia Hypotensive, hypothermic, tachypneic, tachycardic, and hypoxic on presentation. With leukocytosis, and right middle lobe pneumonia on imaging Received 2.5 L NSS resuscitation in ER in addition to 800 cc of prehospital crystalloid meeting sepsis 30 cc/kg bolus. IVC plethoric by ER provider bedside ultrasound Patient subsequently remaining hypotensive with borderline MAP, started on phenylephrine and admitted to the ICU Intubated in the ER AC/VC, current tidal approximately 420. RR22, goal 6-8 cc/kg IBW range [id number], 8 cm PEEP, FiO2 100. Patient hypoxic at the bedside, improving on reassessment. 1 hour ABG ordered Continued cefepime/vancomycin. +flagyl Blood cultures, sputum cultures pending. MRSA nares pending. Sputum culture pending pressors/vent management per ICU, appreciate recs - Lactate 3.3, up trended to 3.6. Second lactate was drawn shortly after vasopressor initiation. Trended Random cortisol is not suppressed, no evidence of AI BNP 302 w/ sepsis and new RVR. No prior echo available for review at time of admission. No history of heart failure. Echo pending.Troponin is mildly elevated initial troponin 182, up trended to 351 and trended x 3 overnight. Echo is pending. EKG afib with nonspecific T wave changes without ST segment changes (2) Atrial fibrillation with RVR: Plan: Was found to be in rapid rhythm greater than 180 in the field by EMS. Received 6 and 12 mg of adenosine for A-fib RVR versus SVT, subsequently was found to be in underlying A-fib. At ER initial assessment patient was in A-fib [id number], amiodarone was pending blood pressure improvement. Had converted intermittently x 2 to sinus, following pressor initiation and intubation she had been maintaining sinus. No prior history of A-fib, patient is not anticoagulated Heparin drip started If patient returns to A-fib --> +amio bolus + gtt Magnesium 1.7, 2 g ordered IV. Potassium 3.6, 20 mEq IV ordered. BMP trended Family reports that she was slurring speech this morning, but did not have any focal extremity weakness or facial droop. CT-H normal. On initial evaluation in the ER she was moving all extremities equally without concerns for focal deficits (3) Pneumonia: Plan: Management as noted, CXR and CT of the abdomen pelvis both w/ RML pneumonia. Procalcitonin is elevated. (4) Prediabetes: Plan: Last A1c 5.9%. BSG on admission 128. ICU hypoglycemia protocol (5) Multiple sclerosis: Plan: Stable at prior imaging, following with neurology. Unable to assess for symptoms from patient, but no no new symptoms and patient has not been on disease modifying agents recently Family reports patient is allergic to gadolinium dye No recent MS symptoms and no flares. Was last on Copaxone in 2019 (6) Hypothyroidism: Plan: Rishi hypothyroidism. Resume levothyroxine/liothyronine if OG available or patient improves, or convert to Synthroid to IV @ 70% if n.p.o. for greater than 72 hours (7) GERD (gastroesophageal reflux disease): Plan: PPI IV continued for gastric protection and history of GERD (8) Pancreatic duct dilated: Plan: CTA/P: Right middle lobe airspace opacity consistent with pneumonia also seen on x-ray. Gallbladder wall thickening suspected to be reactive to periportal edema. Dilation of pancreatic duct at 6 mm, and surrounding edema likely due to periportal edema associated with sepsis with RVR and subsequent fluid resuscitation. Lipase is not elevated. reassess with repeat imaging vs GI consult nonemergently once clinically progressing Plan DVT prophylaxis: Anticoagulated Diet: N.p.o. Disposition: ICU CODE STATUS: Full code History of Present Illness Primary Care Provider: Ganesh De La Fuente DO Susan is a 78-year-old female with a past medical history of diabetes, autoimmune thyroiditis, C5 radiculopathy, L5 radiculopathy, multiple sclerosis stable as of 2022 and off biologic/disease modifying therapy presented to the ER with sepsis and A-fib RVR. By signout report daughter recently had the flu, patient had nausea and weakness yesterday. Very weak this morning with 1 fall and appeared ill. EMS was contacted and patient was with a heart rate over 180 suspicious for SVT versus A-fib RVR. Adenosine 6 mg and subsequent 12 mg was given by EMS in the field, underlying rhythm was shown to be A-fib RVR. She received 800 cc normal saline bolus and route to the hospital by EMS. While in the ER she is found to have a rate of [id number] consistent with A-fib RVR with hypotension. [id number] ultrasound showed no effusion/tamponade, plethoric IVC and chest x-ray showed a right-sided infiltrate. She was started on treatment for sepsis due to pneumonia. She received 2.5 L in addition to 800 cc of fluid prehospital at bolus rate which meets her AB W fluid goals of 20 to 95 cc per sepsis protocol. Random cortisol was elevated and not indicative of adrenal suppression. Patient remained hypotensive but with MAP greater than 65. Case was reviewed with the ICU, phenylephrine was started with the goal of starting amiodarone once pressures had stabilized. Due to hypoxia, respiratory distress and critical illness intubation was discussed with the family at bedside who subsequently confirmed full code in a code setting, and okay for intubation with her current level of illness. Subsequently intubated in the ER, patient did convert to sinus rhythm and amiodarone was deferred. At time of hospitalist admitting assessment patient on phenylephrine, fentanyl drip at 25, propofol at 20. Heparin drip was started. Collateral not available from patient due to critical illness and ETT in place. Allergies Allergy/AdvReac Type Severity Reaction Status Date / Time latex Allergy Intermediate RASH Verified 03/16/23 10:26 interferon beta-1a Allergy Mild UNKNOWN Verified 03/16/23 10:26 gabapentin Allergy Unknown unknown Verified 03/16/23 10:26 Penicillins Allergy Unknown UNKNOWN Verified 03/16/23 10:26 nickel AdvReac Unknown SKIN Verified 03/16/23 10:26 IRRITATION baclofen AdvReac known Verified 03/16/23 10:26 MRI CONTRAST Allergy Mild headaches Uncoded 03/16/23 10:26 Home Medications Medication Instructions Recorded Confirmed Type calcium carbonate 500 mg-vitamin 1 tab PO DAILY 12/03/18 07/11/23 History D3 5 mcg (200 unit) tablet liothyronine 5 mcg tablet (Cytomel) 5 mcg PO QAM #90 tabs 12/03/18 07/11/23 History melatonin 3 mg tablet 6 mg PO HS 12/03/18 07/11/23 History multivitamin (Daily Multi-Vitamin 1 tab PO DAILY 12/03/18 07/11/23 History tablet) vitamins A,C,N-coia-xexiuu 4,296 1 cap PO DAILY 12/03/18 07/11/23 History mcg-226 mg-90 mg capsule (PreserVision AREDS) cholecalciferol (vitamin D3) 50 50 mcg PO DAILY 02/05/21 07/11/23 History mcg (2,000 unit) capsule ferrous sulfate 325 mg (65 mg 325 mg PO DAILY 10/11/21 07/11/23 History iron) tablet levothyroxine 50 mcg tablet 50 mcg PO DAILY 10/11/21 07/11/23 History naproxen 500 mg tablet 500 mg PO BID PRN pain 90 days 10/20/22 07/11/23 Rx #180 tabs omeprazole 40 mg capsule,delayed 40 mg PO DAILY 03/16/23 07/11/23 History release duloxetine 30 mg capsule,delayed 30 mg PO HS 90 days #90 caps 04/14/23 07/11/23 Rx release duloxetine 60 mg capsule,delayed 60 mg PO HS #90 caps 04/14/23 07/11/23 Rx release armodafinil 250 mg tablet (Nuvigil) 250 mg PO QAM #90 tabs 05/15/23 07/11/23 Rx famotidine 40 mg tablet 0 mg PO UD 07/11/23 07/11/23 History meloxicam 15 mg tablet 0 mg PO UD 07/11/23 07/11/23 History Past Med/Surg History Medical History (Updated 07/11/23 @ 10:44 by Bora Bernabe MD) GERD (gastroesophageal reflux disease) Osteoarthritis Degenerative disc disease Chronic back pain Compression fracture currently in a back brace --> from an accident 12/2019. Migraine Cervical disc disease Macular degeneration Multiple sclerosis H/O Rishi thyroiditis Surgical History History of section S/P ear surgery Left ear - zygomatic arch surgery History of colonoscopy H/O hand surgery right hand H/O foot surgery bilateral Family History Father Colon cancer Mother Dementia Aunt Breast cancer Lung cancer Other No family history of adverse response to anesthesia Social History Smoking Status: Never smoker Second Hand Exposure: No; Do You Dip or Chew Tobacco: No; Hx Alcohol Use: No Hx Substance Use: No Preferred Language: Moroccan Communication Ability: Effective Visual Impairment: No Limitations Hearing Ability: Normal Web Design Intern Required: No Beliefs That Will Affect Care: None marital status: Current Living Situation: Spouse current occupational status: retired Feels Safe at Home: Yes Assistive Devices: Cane, Denture - Upper and Hearing Aid - Bilateral Physical Exam Physical Exam: General: Critically ill-appearing, intubated. Does not withdraw to thumb pinch at time of bedside assessment. HEENT: Atraumatic, normocephalic. Pupils reactive to light bilaterally Pulm: CTAB A&P. -wheezes, -rales, -rhonchi. Symmetrical chest rise. No increased work of breathing. No respiratory distress. Cardiac: Regular, tachycardic at time of bedside assessment. radial pulses intact and symmetrical. Abdominal: ondistended, soft. BS present. Extremities: Dry, cool. +KATELYNN Results & Data Results & Data Vital Signs (Past 12 Hours) Vital Signs Temp Pulse Pulse Resp BP BP Pulse Ox 07/11/23 09:09 80 L 07/11/23 09:05 35.3 C L 141 H 35 H 07/11/23 09:03 35.4 C L 07/11/23 09:03 85/38 L 07/11/23 09:02 35.4 C L 07/11/23 08:45 35.3 C L 145 H 24 96/58 L 80 L 07/11/23 08:44 96/58 L 07/11/23 08:37 87/61 L 07/11/23 08:36 35.5 C L 132 H 30 H 79 L 07/11/23 08:35 35.5 C L 145 H 31 H 79 L 07/11/23 08:30 35.4 C L 138 H 35 H 83 L 07/11/23 08:29 35.4 C L 156 H 79 L 07/11/23 08:29 87/56 L 07/11/23 08:25 35.3 C L 152 H 26 H 07/11/23 08:20 35.2 C L 140 H 28 H 76 L 07/11/23 08:18 85/55 L 07/11/23 08:18 35.0 C L 139 H 28 H 80 L 07/11/23 08:15 34.7 C L 139 H 33 H 78 L 07/11/23 08:11 34.3 C L 143 H 29 H 07/11/23 08:11 80/52 L 07/11/23 08:10 34.0 C L 130 H 28 H 07/11/23 08:05 143 H 24 76 L 07/11/23 08:00 133 H 30 H 07/11/23 07:58 36.1 C L 80/40 L 07/11/23 07:56 135 H 07/11/23 07:55 143 H 23 07/11/23 07:55 89 L 07/11/23 07:54 129 H 38 H 07/11/23 07:54 49/28 L 07/11/23 07:50 135 H 29 H 88 L 07/11/23 07:46 150 H 28 H 73/53 L 90 07/11/23 07:45 154 H 18 83 L 07/11/23 07:41 73/53 L 07/11/23 07:41 150 H 26 H 07/11/23 07:40 153 H 24 07/11/23 07:30 24 96 07/11/23 07:28 24 98 O2 Del Method O2 Flow Rate 07/11/23 09:09 Oxymask 10 07/11/23 09:05 07/11/23 09:03 07/11/23 09:03 07/11/23 09:02 07/11/23 08:45 Non-rebreather 15 07/11/23 08:44 07/11/23 08:37 07/11/23 08:36 07/11/23 08:35 07/11/23 08:30 07/11/23 08:29 07/11/23 08:29 07/11/23 08:25 07/11/23 08:20 07/11/23 08:18 07/11/23 08:18 07/11/23 08:15 07/11/23 08:11 07/11/23 08:11 07/11/23 08:10 07/11/23 08:05 07/11/23 08:00 07/11/23 07:58 07/11/23 07:56 07/11/23 07:55 07/11/23 07:55 Nasal Cannula 2 07/11/23 07:54 07/11/23 07:54 07/11/23 07:50 07/11/23 07:46 Room Air 07/11/23 07:45 07/11/23 07:41 07/11/23 07:41 07/11/23 07:40 07/11/23 07:30 07/11/23 07:28 Code Status & VTE Plan VTE Prophylaxis Plan VTE Prophylaxis will be ordered: Yes PG Care Time/CCT Total # of Minutes Spent Total Time Spent with Patient: Total time spent is greater than 50% in coordination of care (as documented) at patient's floor/unit and/or counseling patient: Coding Level of Care Code 43465 INT INP/OBS CARE 3/75MIN Diagnoses Sepsis A41.9 Atrial fibrillation with RVR I48.91 Pneumonia J18.9 Prediabetes R73.03 Multiple sclerosis G35 Hypothyroidism E03.9 GERD (gastroesophageal reflux disease) K21.9 Pancreatic duct dilated K86.89
[2023-07-11 11:15] LABS: Phosphorus 2.4 mg/dl (2.5-4.9)
[2023-07-11] MEDS ORDERED: STAT IV/IM STA ×2 (11:42→19:14)
[2023-07-11] MEDS ORDERED: metroNIDAZOLE 500 MG/100 ML BAG IV SCH (11:45)
[2023-07-11] MEDS ORDERED: HYDROCORTISONE SOD SUCCINATE 100 MG/2 ML VIAL IV SCH (12:00)
--- NOTE | 2023-07-11 12:07 | XRay Report ---
KUB HISTORY: OG placement COMPARISON: KUB 03/17/2016. FINDINGS: The bowel gas pattern is unremarkable. There are no dilated loops of small bowel to suggest an obstruction. Bilateral nephrolithiasis. No ureteral calculi. No pneumoperitoneum or pneumatosis. Moderate fecal retention. The nasogastric tube terminates in the distal stomach. IMPRESSION: 1. Nonspecific bowel gas pattern. 2. The nasogastric tube terminates in the distal stomach. ACT 112: Negative or not required by law. Electronically signed by: Alexey Araiza M.D. 07/11/2023 12:05 PM
[2023-07-11] MEDS: HEPARIN SODIUM/DEXTROSE 25,000 UNITS/500 ML BAG IV SCH (12:09)
[2023-07-11] MEDS: HEPARIN SOD (PORCINE) 1000 UNIT/ML IV ONE ×2 (12:09→13:30)
[2023-07-11] MEDS: ICU Protocol for HYPERglycemia SCH (12:14)
[2023-07-11] MEDS: Heparin IV Adult Wt-Based Standard w/ INITIAL Bolus Protocol IV STA (12:15)
[2023-07-11] MEDS: RAPID SEQUENCE INDUCTION BAG ONE (12:15)
[2023-07-11 12:21] LABS: iSTAT Art Bld Gas pCO2 Correct 42 mmHg (35-46); iSTAT Art Bld Gas pH Corrected 7.229 (7.35-7.45); iSTAT Arterial Blood Gas HCO3 18 meg/L (19-24); iSTAT Arterial Blood Gas pCO2 44 mmHg (35-46); iSTAT Arterial Blood Gas pH 7.22 (7.35-7.45); iSTAT Arterial Blood Gas pO2 34 mmHg (80-95); iSTAT Arterial Blood Gas pO2 C 32; iSTAT Carbon Dioxide 19 mmol/L (24-31); iSTAT FiO2 100 %; iSTAT Hematocrit 37 % (37-47); iSTAT Hemoglobin 12.6 g/dl (12.0-16.0); iSTAT Potassium 4.3 mmol/L (3.3-5.0); iSTAT Site L Brachial; iSTAT Sodium 136 mmol/L (135-144)
[2023-07-11 12:21] LABS: iSTAT Allen Test Pass; iSTAT Art Bld Gas pCO2 Correct 34 mmHg (35-46); iSTAT Art Bld Gas pH Corrected 7.282 (7.35-7.45); iSTAT Arterial Blood Gas HCO3 16 meg/L (19-24); iSTAT Arterial Blood Gas pCO2 35 mmHg (35-46); iSTAT Arterial Blood Gas pH 7.27 (7.35-7.45); iSTAT Arterial Blood Gas pO2 101 mmHg (80-95); iSTAT Arterial Blood Gas pO2 C 97; iSTAT Carbon Dioxide 17 mmol/L (24-31); iSTAT FiO2 100 %; iSTAT Hematocrit 38 % (37-47); iSTAT Hemoglobin 12.9 g/dl (12.0-16.0); iSTAT Potassium 4.5 mmol/L (3.3-5.0); iSTAT Site L Radial; iSTAT Sodium 137 mmol/L (135-144)
[2023-07-11] MEDS: MAGNESIUM SULFATE / D5W 1 GM/100 ML BAG IV SCH (12:24)
[2023-07-11] MEDS: POTASSIUM CHLORIDE / WTR 10 MEQ/100 ML PLCT IV SCH (12:24)
[2023-07-11] MEDS: HYDROCORTISONE SOD SUCCINATE 100 MG/2 ML VIAL IV STA (12:26)
[2023-07-11] MEDS: levoFLOXacin/D5W 750 MG/150 ML BAG IV SCH (13:01)
[2023-07-11] MEDS: metroNIDAZOLE 500 MG/100 ML BAG IV SCH (13:01)
[2023-07-11] MEDS: PANTOprazole 40 MG in SYRINGE 0 ML IV SCH (13:13)
[2023-07-11] MEDS: AMIODARONE / D5W 360 MG/200 ML BAG IV ONE (13:31)
--- NOTE | 2023-07-11 14:54 | XCELERA ---
[id number] [id number]
[2023-07-11] MEDS ORDERED: PEPTAMEN INTENSE VHP 1.0 CAL 1,000 ML BAG OG SCH (15:00)
[2023-07-11] MEDS ORDERED: AMIODARONE / D5W 360 MG/200 ML BAG IV SCH (15:45)
[2023-07-11 15:56] LABS: BUN Creatinine Ratio 24.3 (10-20); Calcium 6.5 mg/dl (8.6-10.3); Potassium 4.7 mmol/L (3.5-5.1)
[2023-07-11 16:00] LABS: Magnesium 5.7 mg/dl (1.7-2.4)
[2023-07-11] MEDS ORDERED: ETOMIDATE 2 MG/ML 20 ML VIAL IV ONE (16:32)
[2023-07-11] MEDS ORDERED: SUCCINYLCHOLINE CHLORIDE 20 MG/ML 10 ML VIAL IV ONE (16:32)
[2023-07-11] MEDS: HYDROCORTISONE SOD 50 MG in SYRINGE 0 ML IV SCH (17:34)
[2023-07-11] MEDS: SODIUM BICARB 8.4% INJ 50 MEQ/50 ML SYR IV STA (17:34)
[2023-07-11 19:04] LABS: ANTI-Xa, UFH(UnfractionatedHep 0.72 IU/ml (0.3-0.7)
[2023-07-11] MEDS: LACTATED RINGER'S 250 ML IV ONE (19:58)
[2023-07-11] MEDS: LACTATED RINGER'S 1,000 ML IV SCH (19:58)
[2023-07-11] MEDS: CALCIUM GLUCONATE 10% 1,000 MG in SODIUM CHLOR 0.9% MINI-B 50 ML IV SCH (19:58)
[2023-07-11] MEDS: CEFEPIME 2,000 MG in SYRINGE 0 ML IV SCH (20:29)
[2023-07-11] MEDS ORDERED: CEFEPIME 2,000 MG in SYRINGE 0 ML IV SCH (22:00)
[2023-07-12 01:33] LABS: ANTI-Xa, UFH(UnfractionatedHep 0.58 IU/ml (0.3-0.7)
[2023-07-12 05:13] LABS: Hematocrit (blood only) 36.4 % (37.0-47.0); Mean Corpuscular Hemoglobin 32.5 pg (25.0-34.0); Mean Corpuscular Volume 98.6 fL (80.0-100.0); Platelet Count 230 K/uL (130-400); RDW Coefficient of Variation 13.8 % (11.5-14.5); RDW Standard Deviation 49.9 fL (36.4-46.3); Red Blood Count 3.69 M/uL (4.20-5.40); White Blood Count 15.34 K/ul (4.8-10.8)
[2023-07-12 05:26] LABS: Albumin Globulin Ratio 1.2 (0.9-2); Albumin Level 2.7 gm/dl (3.4-5.0); BUN Creatinine Ratio 34.5 (10-20); Bilirubin,Total 0.4 mg/dl (0.2-1.0); Calcium 7.4 mg/dl (8.6-10.3); Creatinine Clr Calc Pharmacy 44.5 ml/min; Est GFR (African American) 54.3 ml/min; Est GFR (Non-African American) 46.8 ml/min; Globulin 2.2 gm/dl (2.5-4.0); Magnesium 2.1 mg/dl (1.7-2.4); Phosphorus 2.7 mg/dl (2.5-4.9); Potassium 4.6 mmol/L (3.5-5.1); Total Protein 4.9 gm/dl (6.0-8.3)
[2023-07-12 05:31] LABS: Basophils # (auto) 0.05 K/uL (0.00-0.20); Basophils % (auto) 0.3 %; Dohle Bodies 1+; Eosinophils % (auto) 0.7 %; Immature Granulocytes # (auto) 0.13 K/uL (0.01-0.20); Immature Granulocytes % (auto) 0.8 %; Lymphocytes # (auto) 1.07 K/uL (1.20-3.40); Monocytes # (auto) 0.62 K/uL (0.11-0.59); Neutrophils # (auto) 13.37 K/uL (1.40-6.50); Neutrophils % (auto) 87.2 %; Tear Drop Cells 1+; Toxic Vacuolation 1+
[2023-07-12 05:46] LABS: Troponin I High Sensitivity 1170.1 pg/ml (0-14)
--- NOTE | 2023-07-12 07:20 | Critical Care Progress Note ---
Date of Service July 12, 2023 Assessment & Plan (1) Atrial fibrillation with RVR: (2) GERD (gastroesophageal reflux disease): (3) Pneumonia: (4) Sepsis: (5) Shock circulatory: (6) Nephrolithiasis: (7) Hypothyroidism: (8) Multiple sclerosis: (9) CHF (congestive heart failure): Plan Reason Critically Ill: 78-year-old female present to the hospital with generalized weakness and shortness of breath Past medical history: Multiple sclerosis, hypothyroidism, GERD, anxiety/depression Patient sent to the ICU for septic shock with new onset A-fib RVR Neuro - [facility] ICU: Unable to assess --Metabolic encephalopathy Likely secondary to underlying sepsis and shock Sodium, calcium, glucose within normal limits CT head 07/11/2023 negative for any acute intracranial abnormality -- Multiple sclerosis Takes armodafinil for generalized fatigue. Not on any medication for MS right now. Used to be on Copaxone, has been off of it since 2019 Cardiac - -- Shock with new onset A-fib RVR Multifactorial A-fib with RVR as well as possible sepsis from right lower lobe pneumonia Try to control the heart rate as much as possible if it is still not controlled then cardioversion will be thought of Empiric antibiotic Try to keep MAP greater than 65, phenylephrine drug of choice right now --New onset systolic CHF Could be from severe sepsis Troponins are trending down 2D echo 07/11/2023: EF 40-45% concentric LVH, global hypokinesis of left ventricle, RV not well-visualized --Elevated troponin Likely type II MO Continue to trend EKG 07/11/2023 7:40 AM: A-fib, normal axis, no ST-T wave changes appreciated Respiratory - --VDRF Secondary to acute hypoxic respiratory failure Likely secondary to multilobar pneumonia Daily sedation holidays Continue broad-spectrum antibiotics GI - -- No acute issues RENAL/LYTES - -- CARLO Follow-up urine lites Monitor BUN/creatinine Avoid nephrotoxic medications Strict ins and outs -- Nephrolithiasis right-sided with no hydronephrosis - Continue with Hyman catheter ENDO - -- Hypothyroidism TSH 5.1 with free T4 within normal limit HEME - -- Macrocytic anemia Monitor H&H ID - -- Sepsis with multilobar pneumonia Continue with broad-spectrum antibiotics Given the allergy to penicillin, continue with cephalosporin and add Flagyl Urine Legionella and mycoplasma antigen has been ordered Continue with levofloxacin for the time being, QTc 383 on 07/11/2023 --Prophylaxis VTE: Heparin drip GI: Pantoprazole Lines: Peripheral Diet: Tube feeds Plan: In/out: +5.4 L, urine output 736 Mixed gas: 7.40/29/41 on PEEP of 8, 40%, patient was saturating 94% via pulse ox on the setting Patient is significantly positive since coming to the hospital. Will try to decrease the IV fluids to the minimal. Continue with antibiotics. Troponins have started to trend down. EKG from today does not show any significant change compared to yesterday. Chest x-ray from today shows right-sided pneumonia which is more dense compared to yesterday New onset CHF. Unfortunately patient's urine output is not adequate. Hopefully this is the ATN phase of CARLO from hypotension. Continue with phenylephrine to keep SBP around 95-100 and MAP greater than 65 Will put the patient on SBT today to make her exercise. Goal for extubation tomorrow I have personally spent 40 minutes of critical care time in the direct management of this patient. This is a life/limb threatening event. This includes time spent evaluating patient, direct bedside care, chart review, placing orders, interpretation of diagnostic studies, discussion with consultants, patient, and family members, as well as other required patient management activities. This time is exclusive of all separately billable procedures, and teaching time and separate from and in addition to any other critical care service time. Admission and Anticipated Discharge Date Admission Date: July 11, 2023 Subjective Patient seen and examined at bedside. No acute distress, no adverse events overnight She was on 20 of propofol and 50 of fentanyl at the time of examination She was breathing with the vent. RASS -2. I turned the sedation off, she did wake up, did not follow any commands but was moving all the extremities and trying to take the tube out. She was on 0.4 off phenylephrine with systolic blood pressure in the mid 90s and MAP in the low 70s Review of Systems 2 Review of Systems: All systems reviewed & are unremarkable except as noted in Subjective Physical Exam 2 Physical Exam: Constitutional: No acute distress HEENT: PERRLA Respiratory system: Decreased air entry bilaterally, no wheeze, no rhonchi, positive crackles bilaterally more on the right side CVS: S1-S2 positive, no murmurs or gallops Abdomen: Soft, nontender, nondistended, positive bowel sounds x4 Extremities: +1 pulses bilaterally radialis/ dorsalis pedis, no cyanosis, no edema Neuro: RASS -2, moving all extremities Psych: Unable to assess G/U: Positive Hyman Skin: no rashes, warm and dry Lymphatic: no cervical or axillary lymphadenopathy Results & Data Results & Data Vital Signs (Past 12 Hours) Vital Signs Temp Pulse Resp BP Pulse Ox Pulse Ox O2 Del Method 07/12/23 06:00 37.1 C 80 22 93 07/12/23 06:00 96/66 L 07/12/23 05:45 93/64 L 07/12/23 05:45 37.3 C 79 22 92 07/12/23 05:30 104/65 07/12/23 05:30 37.3 C 82 22 91 07/12/23 05:15 83/59 L 07/12/23 05:15 37.3 C 83 22 91 07/12/23 05:00 97/78 L 07/12/23 05:00 37.3 C 87 22 92 07/12/23 04:45 96/69 L 07/12/23 04:45 37.3 C 78 19 92 07/12/23 04:30 93/67 L 07/12/23 04:30 37.3 C 79 22 92 07/12/23 04:15 37.3 C 79 22 92 07/12/23 04:15 94/65 L 07/12/23 04:00 87/66 L 07/12/23 04:00 37.3 C 81 22 92 07/12/23 04:00 07/12/23 04:00 92 07/12/23 03:45 89/66 L 07/12/23 03:45 37.3 C 81 22 91 07/12/23 03:30 91/67 L 07/12/23 03:30 37.3 C 81 22 90 07/12/23 03:15 37.4 C 88 27 H 90 07/12/23 03:15 82/64 L 07/12/23 03:00 87/64 L 07/12/23 03:00 37.4 C 83 9 L 93 07/12/23 02:45 86/64 L 07/12/23 02:45 37.4 C 80 22 93 07/12/23 02:44 80 22 92 07/12/23 02:30 94/65 L 07/12/23 02:30 37.4 C 83 22 93 07/12/23 02:15 88/66 L 07/12/23 02:15 37.4 C 81 22 93 07/12/23 02:00 89/65 L 07/12/23 02:00 37.4 C 82 22 93 07/12/23 01:45 89/66 L 07/12/23 01:45 37.4 C 82 22 93 07/12/23 01:30 91/63 L 07/12/23 01:30 37.5 C 83 22 93 07/12/23 01:15 37.5 C 85 22 93 07/12/23 01:15 87/61 L 07/12/23 01:08 92/65 L 07/12/23 01:08 37.5 C 81 22 93 07/12/23 01:00 82/59 L 07/12/23 01:00 37.5 C 85 22 93 07/12/23 00:45 86/63 L 07/12/23 00:45 37.5 C 83 22 92 07/12/23 00:30 82/62 L 07/12/23 00:30 37.5 C 84 22 92 07/12/23 00:15 83/60 L 07/12/23 00:15 37.5 C 85 22 92 07/12/23 00:00 07/12/23 00:00 95 07/12/23 00:00 37.5 C 87 22 92 07/12/23 00:00 86/64 L 07/11/23 23:46 87 07/11/23 23:45 78/57 L 07/11/23 23:45 37.5 C 85 22 91 07/11/23 23:37 88/65 L 07/11/23 23:37 37.5 C 87 22 91 07/11/23 23:36 Mechanical Vent 07/11/23 23:30 87/64 L 07/11/23 23:30 37.5 C 89 22 91 07/11/23 23:30 83 22 94 07/11/23 23:15 37.5 C 98 H 29 H 94 07/11/23 23:15 96/74 L 07/11/23 23:00 37.5 C 82 22 95 07/11/23 23:00 99/66 L 07/11/23 22:45 101/78 07/11/23 22:45 37.5 C 84 22 95 07/11/23 22:30 104/71 07/11/23 22:30 37.5 C 83 22 95 07/11/23 22:15 37.5 C 85 22 94 07/11/23 22:15 103/71 07/11/23 22:00 37.5 C 86 19 93 07/11/23 22:00 96/65 L 07/11/23 21:45 88/65 L 07/11/23 21:45 37.5 C 87 22 92 07/11/23 21:30 84/61 L 07/11/23 21:30 37.5 C 90 22 92 07/11/23 21:15 88/72 L 07/11/23 21:15 37.4 C 97 H 22 91 07/11/23 21:00 37.4 C 91 H 22 92 07/11/23 21:00 99/69 L 07/11/23 20:58 85 22 93 07/11/23 20:45 84/63 L 07/11/23 20:45 37.4 C 84 22 94 07/11/23 20:30 84/68 L 07/11/23 20:30 37.4 C 83 22 96 07/11/23 20:20 83/65 L 07/11/23 20:20 37.5 C 85 22 96 07/11/23 20:15 86/69 L 07/11/23 20:15 37.5 C 84 22 95 07/11/23 20:00 07/11/23 20:00 82/66 L 07/11/23 20:00 37.5 C 84 22 96 07/11/23 19:45 86/63 L 07/11/23 19:45 37.5 C 87 22 96 07/11/23 19:30 81/64 L 07/11/23 19:30 37.5 C 84 22 96 O2 Del Method FiO2 07/12/23 06:00 07/12/23 06:00 07/12/23 05:45 07/12/23 05:45 07/12/23 05:30 07/12/23 05:30 07/12/23 05:15 07/12/23 05:15 07/12/23 05:00 07/12/23 05:00 07/12/23 04:45 07/12/23 04:45 07/12/23 04:30 07/12/23 04:30 07/12/23 04:15 07/12/23 04:15 07/12/23 04:00 07/12/23 04:00 07/12/23 04:00 40 07/12/23 04:00 Mechanical Vent 07/12/23 03:45 07/12/23 03:45 07/12/23 03:30 07/12/23 03:30 07/12/23 03:15 07/12/23 03:15 07/12/23 03:00 07/12/23 03:00 07/12/23 02:45 07/12/23 02:45 07/12/23 02:44 40 07/12/23 02:30 07/12/23 02:30 07/12/23 02:15 07/12/23 02:15 07/12/23 02:00 07/12/23 02:00 07/12/23 01:45 07/12/23 01:45 07/12/23 01:30 07/12/23 01:30 07/12/23 01:15 07/12/23 01:15 07/12/23 01:08 07/12/23 01:08 07/12/23 01:00 07/12/23 01:00 07/12/23 00:45 07/12/23 00:45 07/12/23 00:30 07/12/23 00:30 07/12/23 00:15 07/12/23 00:15 07/12/23 00:00 40 07/12/23 00:00 Mechanical Vent 07/12/23 00:00 07/12/23 00:00 07/11/23 23:46 07/11/23 23:45 07/11/23 23:45 07/11/23 23:37 07/11/23 23:37 07/11/23 23:36 40 07/11/23 23:30 07/11/23 23:30 07/11/23 23:30 40 07/11/23 23:15 07/11/23 23:15 07/11/23 23:00 07/11/23 23:00 07/11/23 22:45 07/11/23 22:45 07/11/23 22:30 07/11/23 22:30 07/11/23 22:15 07/11/23 22:15 07/11/23 22:00 07/11/23 22:00 07/11/23 21:45 07/11/23 21:45 07/11/23 21:30 07/11/23 21:30 07/11/23 21:15 07/11/23 21:15 07/11/23 21:00 07/11/23 21:00 07/11/23 20:58 50 07/11/23 20:45 07/11/23 20:45 07/11/23 20:30 07/11/23 20:30 07/11/23 20:20 07/11/23 20:20 07/11/23 20:15 07/11/23 20:15 07/11/23 20:00 40 07/11/23 20:00 07/11/23 20:00 07/11/23 19:45 07/11/23 19:45 07/11/23 19:30 07/11/23 19:30 Laboratory Results 07/12/23 04:54 07/12/23 04:54 Coding Level of Care Code 03150 CRITICAL CARE 1ST 30-74M Diagnoses Atrial fibrillation with RVR I48.91 GERD (gastroesophageal reflux disease) K21.9 Pneumonia J18.9 Sepsis A41.9 Shock circulatory R57.9 Nephrolithiasis N20.0 Hypothyroidism E03.9 Multiple sclerosis G35 CHF (congestive heart failure) I50.9
--- NOTE | 2023-07-12 07:27 | XRay Report ---
SINGLE VIEW CHEST CLINICAL HISTORY: Respiratory failure. FINDINGS: An AP, portable, upright chest radiograph is compared to study dated 07/11/2023. An endotrac heal tube is unchanged in position. An enteric tube has been placed. The tip projects below the diaph ragm and is not visualized. The heart is mildly enlarged noting atherosclerotic calcification of the thoracic aorta. The pulmonary vasculature is noncongested. Chronic interstitial thickening similar to previous. There is bibasilar airspace consolidation, right greater than left. Small pleural effusion s are noted. No pneumothorax is seen. The skeletal structures are osteopenic. The bony thorax is paula sly intact. A benign-appearing chondroid lesion is again seen in the left proximal humerus. IMPRESSION: 1. Lines and tubes as above. 2. Bibasilar airspace consolidation, right greater than left. This is typical for pneumonia and simil ar to yesterday. Radiographic follow-up to resolution is recommended. 3. Small pleural effusions. ACT 112: Negative or not required by law. Electronically signed by: Ian Hidalgo M.D. 07/12/2023 7:24 AM
[2023-07-12 07:36] LABS: ANTI-Xa, UFH(UnfractionatedHep 0.46 IU/ml (0.3-0.7)
[2023-07-12 08:08] LABS: iSTAT Allen Test Pass; iSTAT Art Bld Gas pCO2 Correct 29 mmHg (35-46); iSTAT Art Bld Gas pH Corrected 7.402 (7.35-7.45); iSTAT Arterial Blood Gas HCO3 18 meg/L (19-24); iSTAT Arterial Blood Gas pCO2 29 mmHg (35-46); iSTAT Arterial Blood Gas pO2 41 mmHg (80-95); iSTAT Arterial Blood Gas pO2 C 41; iSTAT Carbon Dioxide 19 mmol/L (24-31); iSTAT FiO2 40 %; iSTAT Hematocrit 34 % (37-47); iSTAT Hemoglobin 11.6 g/dl (12.0-16.0); iSTAT Potassium 4.5 mmol/L (3.3-5.0); iSTAT Site R Radial; iSTAT Sodium 137 mmol/L (135-144)
[2023-07-12] MEDS ORDERED: VANCOMYCIN HCL 1,250 MG in SODIUM CHLORIDE 0.9% 500 ML IV SCH (10:00)
[2023-07-12] MEDS: fentaNYL BOLUS from BAG IV PRN (13:30)
[2023-07-12] MEDS: MIDAZOLAM HCL 1 MG/ML 2ML VIAL IV PRN ×2 (16:08→18:56)
[2023-07-12] MEDS: MIDAZOLAM HCL 1 MG/ML 2ML VIAL ONE ×2 (16:21→17:05)
[2023-07-12] MEDS: MIDAZOLAM HCL 1 MG/ML 2ML VIAL IV STA (17:07)
--- NOTE | 2023-07-12 19:52 | Hospitalist Progress Note ---
Date of Service July 12, 2023 Assessment & Plan (1) Septic shock: Plan: 2nd to right-sided pneumonia Cont phenylephrine - wean as tolerated Cont gentle hydration in light of mildly depressed LV function Cont IV abx and other supportive care (2) Sepsis: Plan: 2nd to pneumonia blood cx's thus far negative follow sputum cx (3) Atrial fibrillation with RVR: Plan: resolved converted to NSR remains on heparin infusion for anticoagulation (4) Pneumonia: Plan: RML with resulting acute hypoxic respiratory failure cont IV cefepime, levaquin, flagyl defer vent management, etc to ICU team (5) Prediabetes: Plan: Last A1c 5.9%. ICU Glycemic protocol. (6) Multiple sclerosis: Plan: No recent MS symptoms or flares. Was last on Copaxone in 2019. (7) Hypothyroidism: Plan: TSH 5.1 takes both synthroid + liothyronine at home defer dose adjustment to the outpatient setting (8) GERD (gastroesophageal reflux disease): Plan: PPI daily (9) Pancreatic duct dilated: Plan: CT abd/pelvis with dilation of pancreatic duct - 6mm Lipase is not elevated Will ultimately need MRCP and further w/u (10) Elevated troponin: Plan: at minimum experienced myocardial demand ischemia in the setting of #1, #3, #4 peak HS trop >1000 echo with mildly depressed LV function when patient is doing better from cardio-pulmonary standpoint consider cardiology consultation due to the size of the troponin elevation and the new LV dysfunction (11) HFrEF (heart failure with reduced ejection fraction): Plan: EF 45-50% on echo this admission mild LV dysfunction cautious use of fluids, etc etiology of mild drop in EF uncertain (12) Acute hypoxic respiratory failure: Plan: 2nd to pneumonia s/p intubation with mech ventilation defer management to ICU team Admission and Anticipated Discharge Date Admission Date: July 11, 2023 Subjective events of overnight noted during my visit she was on PSV vent mode she was agitated and moving all around on the bed , daughter both at bedside remains on propofol, phenylephrine, and fentanyl infusions reports she has chronic pain in her legs from her MS Review of Systems Review of Systems: Unobtainable due to endotracheal tube Physical Exam Physical Exam: gen - awake, moving around on the bed, restraints in place neck - unable to assess for JVD heart - RRR, s1 s2, no murmur lungs - course BS on right, CTA on left, tachypneic abd - soft NT ND BS+ ext - pulses 2+ b/l, no edema Results & Data Results & Data Vital Signs (Past 12 Hours) Vital Signs Temp Pulse Resp BP Pulse Ox Pulse Ox O2 Del Method 07/12/23 19:15 117/69 07/12/23 19:15 37.2 C 53 L 18 91 07/12/23 19:00 112/74 07/12/23 19:00 37.2 C 55 L 18 07/12/23 18:45 118/76 07/12/23 18:45 37.2 C 53 L 18 97 07/12/23 18:30 122/78 07/12/23 18:30 37.2 C 54 L 18 98 Mechanical Vent 07/12/23 18:15 112/75 07/12/23 18:15 37.2 C 53 L 18 98 07/12/23 18:00 108/73 07/12/23 18:00 37.2 C 52 L 18 97 07/12/23 17:45 108/70 07/12/23 17:45 37.3 C 54 L 18 97 07/12/23 17:30 103/68 07/12/23 17:30 37.3 C 56 L 18 95 07/12/23 17:15 109/70 07/12/23 17:15 37.3 C 61 18 94 07/12/23 17:00 100/76 07/12/23 17:00 37.3 C 78 18 95 07/12/23 16:45 95/64 L 07/12/23 16:45 37.3 C 59 L 18 95 07/12/23 16:30 37.3 C 58 L 18 93 07/12/23 16:30 99/66 L 07/12/23 16:15 121/73 07/12/23 16:15 37.3 C 50 L 18 94 07/12/23 16:01 36.7 C 64 17 90 07/12/23 16:01 117/70 07/12/23 16:00 07/12/23 16:00 92 07/12/23 16:00 37.2 C 58 L 13 93 07/12/23 16:00 58 L 07/12/23 15:46 36.2 C L 81 24 93 07/12/23 15:46 99/65 L 07/12/23 15:30 117/77 07/12/23 15:30 37.2 C 57 L 17 86 L 07/12/23 15:15 37.2 C 54 L 16 92 07/12/23 15:15 120/69 07/12/23 15:00 37.2 C 50 L 18 92 07/12/23 15:00 119/76 07/12/23 14:45 117/68 07/12/23 14:45 37.2 C 50 L 18 92 07/12/23 14:30 120/72 07/12/23 14:30 37.3 C 52 L 18 91 07/12/23 14:15 37.3 C 53 L 18 90 07/12/23 14:15 110/68 07/12/23 14:09 52 L 18 91 07/12/23 14:00 108/64 07/12/23 14:00 37.3 C 56 L 18 92 07/12/23 13:45 92/62 L 07/12/23 13:45 37.1 C 59 L 18 91 07/12/23 13:30 96/81 L 07/12/23 13:30 36.7 C 92 H 19 92 Mechanical Vent 07/12/23 13:15 87/69 L 07/12/23 13:15 36.8 C 90 23 94 07/12/23 13:00 93/67 L 07/12/23 13:00 37.0 C 80 21 92 07/12/23 12:59 77 18 93 07/12/23 12:45 94/63 L 07/12/23 12:45 37.3 C 57 L 18 95 07/12/23 12:30 37.2 C 63 18 95 07/12/23 12:30 93/61 L 07/12/23 12:16 36.8 C 91 H 26 H 94 07/12/23 12:16 140/61 07/12/23 12:00 37.3 C 62 18 92 07/12/23 12:00 101/70 07/12/23 12:00 92 07/12/23 12:00 07/12/23 11:45 37.2 C 71 18 92 07/12/23 11:42 96 07/12/23 11:06 56 L 18 96 07/12/23 10:00 113/70 07/12/23 10:00 37.2 C 65 17 95 07/12/23 09:45 87/63 L 07/12/23 09:45 37.2 C 62 18 95 07/12/23 09:30 89/62 L 07/12/23 09:30 37.2 C 63 18 95 07/12/23 09:15 37.2 C 63 18 94 07/12/23 09:15 83/62 L 07/12/23 09:00 37.2 C 63 15 94 07/12/23 09:00 90/61 L 07/12/23 08:45 90/64 L 07/12/23 08:45 37.2 C 66 17 93 07/12/23 08:30 37.1 C 69 15 93 07/12/23 08:30 88/63 L 07/12/23 08:15 37.1 C 69 17 94 Mechanical Vent 07/12/23 08:15 89/63 L 07/12/23 08:00 96 07/12/23 08:00 07/12/23 08:00 Mechanical Vent 07/12/23 08:00 73 07/12/23 08:00 102/73 07/12/23 08:00 37.1 C 90 27 H 94 O2 Del Method FiO2 07/12/23 19:15 07/12/23 19:15 07/12/23 19:00 07/12/23 19:00 07/12/23 18:45 07/12/23 18:45 07/12/23 18:30 07/12/23 18:30 40 07/12/23 18:15 07/12/23 18:15 07/12/23 18:00 07/12/23 18:00 07/12/23 17:45 07/12/23 17:45 07/12/23 17:30 07/12/23 17:30 07/12/23 17:15 07/12/23 17:15 07/12/23 17:00 07/12/23 17:00 07/12/23 16:45 07/12/23 16:45 07/12/23 16:30 07/12/23 16:30 07/12/23 16:15 07/12/23 16:15 07/12/23 16:01 07/12/23 16:01 07/12/23 16:00 40 07/12/23 16:00 Mechanical Vent 07/12/23 16:00 07/12/23 16:00 07/12/23 15:46 07/12/23 15:46 07/12/23 15:30 07/12/23 15:30 07/12/23 15:15 07/12/23 15:15 07/12/23 15:00 07/12/23 15:00 07/12/23 14:45 07/12/23 14:45 07/12/23 14:30 07/12/23 14:30 07/12/23 14:15 07/12/23 14:15 07/12/23 14:09 40 07/12/23 14:00 07/12/23 14:00 07/12/23 13:45 07/12/23 13:45 07/12/23 13:30 07/12/23 13:30 40 07/12/23 13:15 07/12/23 13:15 07/12/23 13:00 07/12/23 13:00 07/12/23 12:59 40 07/12/23 12:45 07/12/23 12:45 07/12/23 12:30 07/12/23 12:30 07/12/23 12:16 07/12/23 12:16 07/12/23 12:00 07/12/23 12:00 07/12/23 12:00 Mechanical Vent 07/12/23 12:00 40 07/12/23 11:45 07/12/23 11:42 Mechanical Vent 07/12/23 11:06 40 07/12/23 10:00 07/12/23 10:00 07/12/23 09:45 07/12/23 09:45 07/12/23 09:30 07/12/23 09:30 07/12/23 09:15 07/12/23 09:15 07/12/23 09:00 07/12/23 09:00 07/12/23 08:45 07/12/23 08:45 07/12/23 08:30 07/12/23 08:30 07/12/23 08:15 40 07/12/23 08:15 07/12/23 08:00 Mechanical Vent 07/12/23 08:00 40 07/12/23 08:00 40 07/12/23 08:00 07/12/23 08:00 07/12/23 08:00 Laboratory Results Laboratory Results - last 24 hr 07/12/23 07/12/23 07/12/23 00:52 04:54 06:09 WBC 15.34 H RBC 3.69 L Hgb 12.0 POC Hgb Hct 36.4 L POC Hct MCV 98.6 MCH 32.5 MCHC 33.0 RDW Std Deviation 49.9 H RDW Coeff of Humberto 13.8 Plt Count 230 MPV 10.0 Immature Gran % (Auto) 0.8 Neut % (Auto) 87.2 Lymph % (Auto) 7.0 [place] % (Auto) 4.0 Eos % (Auto) 0.7 Baso % (Auto) 0.3 Neut # (Auto) 13.37 H Lymph # (Auto) 1.07 L [place] # (Auto) 0.62 H Eos # (Auto) 0.10 Baso # (Auto) 0.05 Immature Gran # (Auto) 0.13 Toxic Vacuolation 1+ Dohle Bodies 1+ Tear Drop Cells 1+ Heparin Anti-Xa, Unfract 0.58 Sample Site POC pH POC pCO2 POC pO2 POC HCO3 POC Total CO2 POC Base Excess ABG pH (Temp Correct) ABG pCO2 (Temp Corrct POC ABG pO2 at Pt Temp POC ABG O2 Sat Panfilo Test O2 Delivery Device POC O2 Rate Minute Ventilation POC FiO2 Tidal Volume PEEP POC Sodium Sodium 135 L POC Potassium Potassium 4.6 Chloride 110 H Carbon Dioxide 18 L Anion Gap 7 BUN 39 H Creatinine 1.13 Est Cr Clr Drug Dosing 44.5 Est GFR ( Amer) 54.3 Est GFR (Non-Af Amer) 46.8 BUN/Creatinine Ratio 34.5 H Glucose 110 H POC Glucose 105 H Calcium 7.4 L Phosphorus 2.7 Magnesium 2.1 Total Bilirubin 0.4 D AST 25 ALT 20 Alkaline Phosphatase 54 Troponin I High Sens 1427.5 H* D 1170.1 H* Total Protein 4.9 L Albumin 2.7 L Globulin 2.2 L Albumin/Globulin Ratio 1.2 07/12/23 07/12/23 07/12/23 06:58 07:11 11:32 WBC RBC Hgb POC Hgb 11.6 L Hct POC Hct 34 L MCV MCH MCHC RDW Std Deviation RDW Coeff of Humberto Plt Count MPV Immature Gran % (Auto) Neut % (Auto) Lymph % (Auto) [place] % (Auto) Eos % (Auto) Baso % (Auto) Neut # (Auto) Lymph # (Auto) [place] # (Auto) Eos # (Auto) Baso # (Auto) Immature Gran # (Auto) Toxic Vacuolation Dohle Bodies Tear Drop Cells Heparin Anti-Xa, Unfract 0.46 Sample Site R Radial POC pH 7.40 POC pCO2 29 L POC pO2 41 L POC HCO3 18 L POC Total CO2 19 L POC Base Excess -7.0 ABG pH (Temp Correct) 7.402 ABG pCO2 (Temp Corrct 29 L POC ABG pO2 at Pt Temp 41 POC ABG O2 Sat 77.0 L Panfilo Test Pass O2 Delivery Device Ventilator POC O2 Rate 22 Minute Ventilation 9 POC FiO2 40 Tidal Volume 420 PEEP 8 POC Sodium 137 Sodium POC Potassium 4.5 Potassium Chloride Carbon Dioxide Anion Gap BUN Creatinine Est Cr Clr Drug Dosing Est GFR ( Amer) Est GFR (Non-Af Amer) BUN/Creatinine Ratio Glucose POC Glucose 102 H Calcium Phosphorus Magnesium Total Bilirubin AST ALT Alkaline Phosphatase Troponin I High Sens Total Protein Albumin Globulin Albumin/Globulin Ratio 07/12/23 07/12/23 18:07 20:11 WBC RBC Hgb POC Hgb Hct POC Hct MCV MCH MCHC RDW Std Deviation RDW Coeff of Humberto Plt Count MPV Immature Gran % (Auto) Neut % (Auto) Lymph % (Auto) [place] % (Auto) Eos % (Auto) Baso % (Auto) Neut # (Auto) Lymph # (Auto) [place] # (Auto) Eos # (Auto) Baso # (Auto) Immature Gran # (Auto) Toxic Vacuolation Dohle Bodies Tear Drop Cells Heparin Anti-Xa, Unfract Sample Site POC pH POC pCO2 POC pO2 POC HCO3 POC Total CO2 POC Base Excess ABG pH (Temp Correct) ABG pCO2 (Temp Corrct POC ABG pO2 at Pt Temp POC ABG O2 Sat Panfilo Test O2 Delivery Device POC O2 Rate Minute Ventilation POC FiO2 Tidal Volume PEEP POC Sodium Sodium POC Potassium Potassium Chloride Carbon Dioxide Anion Gap BUN Creatinine Est Cr Clr Drug Dosing Est GFR ( Amer) Est GFR (Non-Af Amer) BUN/Creatinine Ratio Glucose POC Glucose 99 111 H Calcium Phosphorus Magnesium Total Bilirubin AST ALT Alkaline Phosphatase Troponin I High Sens Total Protein Albumin Globulin Albumin/Globulin Ratio PG Care Time/CCT Total # of Minutes Spent Total Time Spent with Patient: Total time spent is greater than 50% in coordination of care (as documented) at patient's floor/unit and/or counseling patient: Coding Level of Care Code None Diagnoses Septic shock A41.9; R65.21 Sepsis A41.9 Atrial fibrillation with RVR I48.91 Pneumonia J18.9 Prediabetes R73.03 Multiple sclerosis G35 Hypothyroidism E03.9 GERD (gastroesophageal reflux disease) K21.9 Pancreatic duct dilated K86.89 Elevated troponin R79.89 HFrEF (heart failure with reduced ejection fraction) I50.20 Acute hypoxic respiratory failure J96.01
[2023-07-13 04:23] LABS: Albumin Globulin Ratio 1.2 (0.9-2); Albumin Level 2.9 gm/dl (3.4-5.0); Bilirubin,Total 0.4 mg/dl (0.2-1.0); Calcium 7.6 mg/dl (8.6-10.3); Creatinine Clr Calc Pharmacy 61.5 ml/min; Est GFR (African American) 78.8 ml/min; Globulin 2.4 gm/dl (2.5-4.0); Magnesium 2.4 mg/dl (1.7-2.4); Phosphorus 2.4 mg/dl (2.5-4.9); Potassium 4.3 mmol/L (3.5-5.1); Total Protein 5.3 gm/dl (6.0-8.3)
[2023-07-13 04:39] LABS: Basophils # (auto) 0.03 K/uL (0.00-0.20); Basophils % (auto) 0.2 %; Hematocrit (blood only) 35.1 % (37.0-47.0); Hemoglobin 11.7 g/dl (12.0-16.0); Immature Granulocytes % (auto) 0.6 %; Lymphocytes # (auto) 0.97 K/uL (1.20-3.40); Lymphocytes % (auto) 5.8 %; Mean Corpuscular Hemoglobin 32.1 pg (25.0-34.0); Mean Corpuscular Hgb Conc 33.3 g/dL (32.0-36.0); Mean Corpuscular Volume 96.4 fL (80.0-100.0); Mean Platelet Volume 10.6 fL (9.4-12.4); Monocytes # (auto) 0.65 K/uL (0.11-0.59); Monocytes % (auto) 3.9 %; Neutrophils # (auto) 14.86 K/uL (1.40-6.50); Neutrophils % (auto) 89.5 %; Platelet Count 284 K/uL (130-400); RDW Coefficient of Variation 14.1 % (11.5-14.5); RDW Standard Deviation 50.1 fL (36.4-46.3); Red Blood Count 3.64 M/uL (4.20-5.40); White Blood Count 16.61 K/ul (4.8-10.8)
[2023-07-13 04:42] LABS: ANTI-Xa, UFH(UnfractionatedHep 0.26 IU/ml (0.3-0.7)
--- NOTE | 2023-07-13 07:06 | XRay Report ---
XR chest 1V portable CLINICAL HISTORY: while intubated- eval lines/tubes/lung sun COMPARISON STUDY: Chest radiograph July 12, 2023. FINDINGS: Tip of the endotracheal tube is 1.9 cm above the prince. Tip of nasogastric tube is below l ower aspect of this image but at least within the body of the stomach. Bibasilar airspace opacities, right greater than left, persist. There are small bilateral pleural effusions. There is no pneumothor ax. There is pulmonary vascular congestion. Sclerotic lesion within the proximal left humerus remains unchanged from earlier exams. IMPRESSION: 1. Satisfactory positioning of the endotracheal and nasogastric tubes. 2. Persistent bibasilar opacities suggestive of pneumonia. 3. Small bilateral pleural effusions. 4. Pulmonary vascular congestion. ACT 112: Negative or not required by law. Electronically signed by: Juan Carlos Martin M.D. 07/13/2023 7:05 AM
[2023-07-13] MEDS ORDERED: ERTAPENEM SODIUM IV SCH (08:15)
--- NOTE | 2023-07-13 08:34 | Critical Care Progress Note ---
Date of Service July 13, 2023 Assessment & Plan (1) Atrial fibrillation with RVR: (2) GERD (gastroesophageal reflux disease): (3) Pneumonia: (4) Sepsis: (5) Shock circulatory: (6) Nephrolithiasis: (7) Hypothyroidism: (8) Multiple sclerosis: (9) CHF (congestive heart failure): Plan Reason Critically Ill: 78-year-old female present to the hospital with generalized weakness and shortness of breath Past medical history: Multiple sclerosis, hypothyroidism, GERD, anxiety/ depression Patient sent to the ICU for septic shock with new onset A-fib RVR Neuro - Following simple commands off sedation. Agitated at times. --Metabolic encephalopathy Likely secondary to underlying sepsis and shock CT head 07/11/2023 negative for any acute intracranial abnormality -- Multiple sclerosis Takes armodafinil for generalized fatigue. Not on any medication for MS right now. Used to be on Copaxone, has been off of it since 2019 Cardiac - -- Shock with new onset A-fib RVR Multifactorial A-fib with RVR as well as possible sepsis from right lower lobe pneumonia --New onset systolic CHF Could be from severe sepsis Troponins are trending down 2D echo 07/11/2023: EF 40-45% concentric LVH, global hypokinesis of left ventricle, RV not well-visualized --Elevated troponin Likely type II WI Continue to trend EKG 07/11/2023 7:40 AM: A-fib, normal axis, no ST-T wave changes appreciated Respiratory - --VDRF Minimal vent settings at this time. Secondary to acute hypoxic respiratory failure Likely secondary to multilobar pneumonia Daily sedation holidays Will consider bronchoscopy today if fails SBT. Urine Legionella and mycoplasma antibodies pending. Respiratory viral panel negative on admission. Continue broad-spectrum antibiotics GI - -- No acute issues RENAL/LYTES - -- CARLO Patient with mild acidemia likely from sepsis. Resolving. CARLO has resolved. -- Nephrolithiasis right-sided with no hydronephrosis - Continue with Hyman catheter ENDO - -- Hypothyroidism TSH 5.1 with free T4 within normal limit HEME - -- Macrocytic anemia Monitor H&H ID - -- Sepsis with multilobar pneumonia -Patient with ESBL E. coli growing in the urine. Will start contact precautions. Initiate ertapenem. Transition off Levaquin to azithromycin. Pending urine Legionella antigen. Nasal MRSA swab was negative. --Prophylaxis VTE: Heparin drip GI: Pantoprazole Lines: Peripheral Diet: Will hold tube feeds on SBT I have personally spent 40 minutes of critical care time in the direct management of this patient. This is a life/limb threatening event. This includes time spent evaluating patient, direct bedside care, chart review, placing orders, interpretation of diagnostic studies, discussion with consultants, patient, and family members, as well as other required patient management activities. This time is exclusive of all separately billable procedures, and teaching time and separate from and in addition to any other critical care service time. Admission and Anticipated Discharge Date Admission Date: July 11, 2023 Subjective Patient seen and examined. She awakes to vocal stimuli with sedation being off. She is now following simple commands. She is currently on a heparin infusion. No acute events overnight. Remains mildly bradycardic. Review of Systems Review of Systems: Unobtainable due to endotracheal tube Physical Exam Physical Exam: Constitutional: Intubated and sedated HEENT: PERRLA Respiratory system: Decreased air entry bilaterally, no wheeze, no rhonchi CVS: S1-S2 positive, no murmurs or gallops Abdomen: Soft, nontender, nondistended, positive bowel sounds x4 Extremities: +1 pulses bilaterally radialis/ dorsalis pedis, no cyanosis, no edema Neuro: No localizing signs, moving all extremities Psych: Unable to assess G/U: Positive Hyman Skin: no rashes, warm and dry Lymphatic: no cervical or axillary lymphadenopathy Results & Data Results & Data Vital Signs (Past 12 Hours) Vital Signs Temp Pulse Resp BP Pulse Ox Pulse Ox O2 Del Method 07/13/23 07:20 56 L 18 98 07/13/23 06:45 37.5 C 51 L 18 97 07/13/23 06:45 120/73 07/13/23 06:30 37.5 C 49 L 18 97 07/13/23 06:30 116/72 07/13/23 06:15 119/73 07/13/23 06:15 37.5 C 52 L 18 97 07/13/23 06:00 119/74 07/13/23 06:00 37.5 C 50 L 18 97 07/13/23 05:45 104/71 07/13/23 05:45 37.5 C 51 L 18 97 07/13/23 05:30 37.5 C 51 L 18 97 07/13/23 05:30 116/68 07/13/23 05:15 120/73 07/13/23 05:15 37.5 C 52 L 18 98 07/13/23 05:00 113/69 07/13/23 05:00 37.5 C 50 L 18 98 07/13/23 04:45 111/73 07/13/23 04:45 37.5 C 50 L 18 97 07/13/23 04:30 37.5 C 52 L 18 98 07/13/23 04:30 110/70 07/13/23 04:15 37.5 C 51 L 18 97 07/13/23 04:15 114/72 07/13/23 04:00 37.5 C 50 L 18 98 07/13/23 04:00 112/71 07/13/23 04:00 07/13/23 04:00 97 Mechanical Vent 07/13/23 03:45 106/66 07/13/23 03:45 37.5 C 49 L 18 98 07/13/23 03:30 105/67 07/13/23 03:30 37.5 C 52 L 18 98 07/13/23 03:15 37.5 C 50 L 18 96 07/13/23 03:15 115/71 07/13/23 03:10 52 L 18 96 07/13/23 03:00 37.5 C 51 L 18 96 07/13/23 03:00 120/72 07/13/23 02:45 119/72 07/13/23 02:45 37.5 C 50 L 15 98 07/13/23 02:30 115/74 07/13/23 02:30 37.5 C 52 L 18 98 07/13/23 02:15 113/76 07/13/23 02:15 37.5 C 50 L 18 98 07/13/23 02:00 113/75 07/13/23 02:00 37.5 C 51 L 18 98 07/13/23 01:45 37.5 C 51 L 18 98 07/13/23 01:45 116/72 07/13/23 01:30 106/72 07/13/23 01:30 37.4 C 47 L 18 98 07/13/23 01:15 37.4 C 51 L 18 98 07/13/23 01:15 113/72 07/13/23 01:00 121/74 07/13/23 01:00 37.4 C 48 L 18 99 07/13/23 00:45 114/75 07/13/23 00:45 37.4 C 50 L 16 98 07/13/23 00:30 111/72 07/13/23 00:30 37.3 C 50 L 18 98 07/13/23 00:15 120/75 07/13/23 00:15 37.3 C 53 L 18 97 07/13/23 00:00 111/73 07/13/23 00:00 37.3 C 53 L 18 96 07/13/23 00:00 07/13/23 00:00 98 Mechanical Vent 07/13/23 00:00 49 L 07/12/23 23:45 113/86 07/12/23 23:45 37.3 C 89 20 77 L 07/12/23 23:30 117/78 07/12/23 23:30 37.3 C 54 L 18 98 07/12/23 23:15 123/80 07/12/23 23:15 37.3 C 50 L 18 98 07/12/23 23:00 128/84 07/12/23 23:00 37.2 C 52 L 18 99 07/12/23 22:45 133/86 07/12/23 22:45 37.2 C 53 L 18 97 07/12/23 22:44 52 L 18 95 07/12/23 22:30 132/81 07/12/23 22:30 37.2 C 51 L 18 91 07/12/23 22:15 37.2 C 53 L 18 96 07/12/23 22:15 126/79 07/12/23 22:00 125/85 07/12/23 22:00 37.2 C 51 L 18 95 07/12/23 21:45 130/79 07/12/23 21:45 37.1 C 52 L 18 96 07/12/23 21:30 125/78 07/12/23 21:30 37.2 C 54 L 18 96 07/12/23 21:15 129/79 07/12/23 21:15 37.2 C 53 L 18 95 07/12/23 21:00 120/77 07/12/23 21:00 37.2 C 55 L 18 94 07/12/23 20:51 37.2 C 56 L 18 94 07/12/23 20:51 106/70 07/12/23 20:45 37.2 C 69 18 95 07/12/23 20:30 132/85 07/12/23 20:30 37.2 C 55 L 18 95 FiO2 07/13/23 07:20 40 07/13/23 06:45 07/13/23 06:45 07/13/23 06:30 07/13/23 06:30 07/13/23 06:15 07/13/23 06:15 07/13/23 06:00 07/13/23 06:00 07/13/23 05:45 07/13/23 05:45 07/13/23 05:30 07/13/23 05:30 07/13/23 05:15 07/13/23 05:15 07/13/23 05:00 07/13/23 05:00 07/13/23 04:45 07/13/23 04:45 07/13/23 04:30 07/13/23 04:30 07/13/23 04:15 07/13/23 04:15 07/13/23 04:00 07/13/23 04:00 07/13/23 04:00 40 07/13/23 04:00 07/13/23 03:45 07/13/23 03:45 07/13/23 03:30 07/13/23 03:30 07/13/23 03:15 07/13/23 03:15 07/13/23 03:10 40 07/13/23 03:00 07/13/23 03:00 07/13/23 02:45 07/13/23 02:45 07/13/23 02:30 07/13/23 02:30 07/13/23 02:15 07/13/23 02:15 07/13/23 02:00 07/13/23 02:00 07/13/23 01:45 07/13/23 01:45 07/13/23 01:30 07/13/23 01:30 07/13/23 01:15 07/13/23 01:15 07/13/23 01:00 07/13/23 01:00 07/13/23 00:45 07/13/23 00:45 07/13/23 00:30 07/13/23 00:30 07/13/23 00:15 07/13/23 00:15 07/13/23 00:00 07/13/23 00:00 07/13/23 00:00 40 07/13/23 00:00 07/13/23 00:00 07/12/23 23:45 07/12/23 23:45 07/12/23 23:30 07/12/23 23:30 07/12/23 23:15 07/12/23 23:15 07/12/23 23:00 07/12/23 23:00 07/12/23 22:45 07/12/23 22:45 07/12/23 22:44 40 07/12/23 22:30 07/12/23 22:30 07/12/23 22:15 07/12/23 22:15 07/12/23 22:00 07/12/23 22:00 07/12/23 21:45 07/12/23 21:45 07/12/23 21:30 07/12/23 21:30 07/12/23 21:15 07/12/23 21:15 07/12/23 21:00 07/12/23 21:00 07/12/23 20:51 07/12/23 20:51 07/12/23 20:45 07/12/23 20:30 07/12/23 20:30 Coding Level of Care Code 29964 CRITICAL CARE 1ST 30-74M Diagnoses Atrial fibrillation with RVR I48.91 GERD (gastroesophageal reflux disease) K21.9 Pneumonia J18.9 Sepsis A41.9 Shock circulatory R57.9 Nephrolithiasis N20.0 Hypothyroidism E03.9 Multiple sclerosis G35 CHF (congestive heart failure) I50.9 Time Spent (min) 44
[2023-07-13] MEDS: AZITHROMYCIN 500 MG in DEXTROSE 5% 250 ML IV STA (09:08)
[2023-07-13] MEDS: ERTAPENEM SODIUM 1,000 MG in SYRINGE 0 ML IV SCH (09:08)
[2023-07-13 11:58] LABS: ANTI-Xa, UFH(UnfractionatedHep < 0.10 IU/ml (0.3-0.7)
[2023-07-13] MEDS: ACETAMINOPHEN 1,000 MG/100 ML VIAL IV PRN (14:22)
--- NOTE | 2023-07-13 16:16 | Cardiology Consultation ---
Date of Consultation July 13, 2023 Assessment & Plan (1) Elevated troponin: (2) Atrial fibrillation with RVR: (3) HFrEF (heart failure with reduced ejection fraction): Plan 1. Elevated troponin: Her troponin was quite high for the first day after admission, however she was severely ill and I think it is most likely this troponin elevation is demand ischemia. It could be in the presence of underlying coronary disease but there is no evidence of ST segment elevation on her electrocardiograms. I would like to track down the results of her recent stress test. 2. Atrial fibrillation: Her atrial fibrillation may be related to her sepsis, although it is possible she has atrial fibrillation at other times as well. She has had no recurrence, at this point I think it would be safe to discontinue heparin, we can reinstituted if she has more atrial fibrillation. The role for longer-term monitoring when she goes home is uncertain at this point. 3. Congestive heart failure: Her left ventricular function is mildly reduced, this could be due to her sepsis, we should repeat the echocardiogram as limited study before discharge. We will have a comparison from her stress test I believe once we get those results. If her ejection fraction remains reduced we may want to consider evaluation for causes of cardiomyopathy but if it normalizes I would assume it is due to the severe illness on presentation. History of Present Illness Reason for Consultation: Atrial fibrillation, abnormal cardiac enzymes Attending Physician: Brad Castaneda MD History of Present Illness This is a 78-year-old woman who has a history of multiple sclerosis, hypothyroidism and GERD but does not have a history of heart disease to my knowledge but presented to the emergency room on July 11, 2023 very short of breath as well as nausea and vomiting. She was felt to have septic shock from pneumonia and a metabolic encephalopathy was treated for this. She was however found to be in atrial fibrillation with a rapid ventricular response, reported to be 180 bpm by EMS. She was intubated, and after initial treatment converted to sinus rhythm. Her presenting blood pressure is reported as 73/53, however there is a reading of 49/28 and Meding readings in the 80s and 90s systolic. Hypotension appears to be present at least intermittently for more than 24 hours. Her presenting electrocardiogram on July 11, 2023 at 07 40 showed atrial fibrillation with a heart rate of 143 bpm. 2 hours later she was in sinus rhythm at 103 bpm. An echocardiogram done July 11, 2023 showed low normal left ventricular systolic function with borderline global hypokinesis and borderline concentric left ventricular hypertrophy. Her ejection fraction was felt to be 45 to 50%. With this presentation her high-sensitivity troponin was elevated, on presentation was 182 but it increased to a peak of 1427 about 17 hours after presentation and then dropped after that. I was able to talk to her somewhat this afternoon (she is extubated) but she does not talk much but her and children were there. It sounds as though she has no known cardiac history although she did have a stress test it sounds like at [facility] within the last few months, the reason is not clear but we can probably track that down. It sounds like it might have been a pharmacologic echo. They also do not know of any history of atrial fibrillation. Allergies Allergy/AdvReac Type Severity Reaction Status Date / Time latex Allergy Intermediate RASH Verified 03/16/23 10:26 interferon beta-1a Allergy Mild UNKNOWN Verified 03/16/23 10:26 gabapentin Allergy Unknown unknown Verified 03/16/23 10:26 Penicillins Allergy Unknown UNKNOWN Verified 03/16/23 10:26 nickel AdvReac Unknown SKIN Verified 03/16/23 10:26 IRRITATION baclofen AdvReac known Verified 03/16/23 10:26 MRI CONTRAST Allergy Mild headaches Uncoded 03/16/23 10:26 Home Medications Medication Instructions Recorded Confirmed Type calcium carbonate 500 mg-vitamin 1 tab PO DAILY 12/03/18 07/11/23 History D3 5 mcg (200 unit) tablet liothyronine 5 mcg tablet (Cytomel) 5 mcg PO QAM #90 tabs 12/03/18 07/11/23 His tory melatonin 3 mg tablet 6 mg PO HS 12/03/18 07/11/23 History multivitamin (Daily Multi-Vitamin 1 tab PO DAILY 12/03/18 07/11/23 History tablet) vitamins A,C,J-uuzq-sabzos 4,296 1 cap PO DAILY 12/03/18 07/11/23 History mcg-226 mg-90 mg capsule (PreserVision AREDS) cholecalciferol (vitamin D3) 50 50 mcg PO DAILY 02/05/21 07/11/23 History mcg (2,000 unit) capsule ferrous sulfate 325 mg (65 mg 325 mg PO DAILY 10/11/21 07/11/23 History iron) tablet levothyroxine 50 mcg tablet 50 mcg PO DAILY 10/11/21 07/11/23 History naproxen 500 mg tablet 500 mg PO BID PRN pain 90 days 10/20/22 07/11/23 Rx #180 tabs omeprazole 40 mg capsule,delayed 40 mg PO DAILY 03/16/23 07/11/23 History release duloxetine 30 mg capsule,delayed 30 mg PO HS 90 days #90 caps 04/14/23 07/11/23 Rx release duloxetine 60 mg capsule,delayed 60 mg PO HS #90 caps 04/14/23 07/11/23 Rx release armodafinil 250 mg tablet (Nuvigil) 250 mg PO QAM #90 tabs 05/15/23 07/11/23 Rx famotidine 40 mg tablet 0 mg PO UD 07/11/23 07/11/23 History meloxicam 15 mg tablet 0 mg PO UD 07/11/23 07/11/23 History Patient History Medical History GERD (gastroesophageal reflux disease) Osteoarthritis Degenerative disc disease Chronic back pain Compression fracture currently in a back brace --> from an accident 12/2019. Migraine Cervical disc disease Macular degeneration Multiple sclerosis H/O Rishi thyroiditis Surgical History History of section S/P ear surgery Left ear - zygomatic arch surgery History of colonoscopy H/O hand surgery right hand H/O foot surgery bilateral Family History Father Colon cancer Mother Dementia Aunt Breast cancer Lung cancer Other No family history of adverse response to anesthesia Social History Smoking Status: Never smoker Second Hand Exposure: No; Do You Dip or Chew Tobacco: No; Hx Alcohol Use: No Hx Substance Use: No Preferred Language: Yoruba Communication Ability: Unable Visual Impairment: No Limitations Hearing Ability: Normal Machine Former Required: No Beliefs That Will Affect Care: None marital status: Current Living Situation: Spouse current occupational status: retired Feels Safe at Home: Yes Assistive Devices: Cane Review of Systems Review of Systems: Unobtainable due to cognitive status Physical Exam Physical Exam: Constitutional: Alert, resting in bed but not very conversational. HEENT: Unremarkable Neck: No jugular venous distention, carotid pulses are normal and equal bilaterally without bruits. Pulmonary: Clear to auscultation bilaterally. Cardiac: Regular rhythm with no murmur, gallop or rub. Abdomen: Soft, nontender with normal bowel sounds. Extremities: No edema. Neurologic: No focal findings. Skin: No rash, ecchymoses or petechiae. Results & Data Vital Signs (Past 12 Hours) Vital Signs Temp Pulse Resp BP Pulse Ox O2 Del Method O2 Flow Rate 07/13/23 14:00 37.1 C 65 13 98 07/13/23 14:00 124/78 07/13/23 13:00 36.8 C 87 23 94 07/13/23 13:00 137/97 07/13/23 12:00 Nasal Cannula 4 07/13/23 12:00 37.1 C 63 12 97 07/13/23 12:00 108/77 07/13/23 11:00 131/78 07/13/23 11:00 37.3 C 87 18 94 07/13/23 10:58 10 L 07/13/23 10:45 37.3 C 84 12 94 07/13/23 10:45 116/79 07/13/23 10:30 36.3 C L 91 H 12 91 07/13/23 10:30 131/82 07/13/23 10:15 133/85 07/13/23 10:15 36.3 C L 89 19 92 07/13/23 10:00 125/72 07/13/23 10:00 37.0 C 91 H 23 91 07/13/23 09:45 37.3 C 89 12 93 07/13/23 09:45 122/71 07/13/23 09:30 37.4 C 87 12 94 07/13/23 09:30 123/73 07/13/23 09:16 125/61 07/13/23 09:16 37.6 C H 74 13 95 07/13/23 09:12 105/64 07/13/23 09:12 37.6 C H 55 L 20 97 07/13/23 09:04 24 07/13/23 09:01 37.6 C H 82 14 07/13/23 09:01 142/83 H 07/13/23 09:00 37.5 C 18 07/13/23 08:44 37.6 C H 80 19 95 07/13/23 08:44 95/68 L 07/13/23 08:30 104/68 07/13/23 08:15 111/76 07/13/23 08:15 37.6 C H 51 L 18 97 07/13/23 08:00 118/75 07/13/23 08:00 37.6 C H 51 L 18 97 07/13/23 07:45 118/76 07/13/23 07:45 37.5 C 51 L 18 97 07/13/23 07:30 122/78 07/13/23 07:30 37.5 C 51 L 18 97 07/13/23 07:20 56 L 18 98 07/13/23 07:15 116/74 07/13/23 07:15 37.5 C 51 L 18 97 07/13/23 07:00 119/74 07/13/23 07:00 37.5 C 50 L 18 98 07/13/23 06:45 37.5 C 51 L 18 97 07/13/23 06:45 120/73 07/13/23 06:30 37.5 C 49 L 18 97 07/13/23 06:30 116/72 07/13/23 06:15 119/73 07/13/23 06:15 37.5 C 52 L 18 97 07/13/23 06:00 119/74 07/13/23 06:00 37.5 C 50 L 18 97 07/13/23 05:45 104/71 07/13/23 05:45 37.5 C 51 L 18 97 07/13/23 05:30 37.5 C 51 L 18 97 07/13/23 05:30 116/68 07/13/23 05:15 120/73 07/13/23 05:15 37.5 C 52 L 18 98 07/13/23 05:00 113/69 07/13/23 05:00 37.5 C 50 L 18 98 07/13/23 04:45 111/73 07/13/23 04:45 37.5 C 50 L 18 97 07/13/23 04:30 37.5 C 52 L 18 98 07/13/23 04:30 110/70 07/13/23 04:15 37.5 C 51 L 18 97 07/13/23 04:15 114/72 FiO2 07/13/23 14:00 07/13/23 14:00 07/13/23 13:00 07/13/23 13:00 07/13/23 12:00 07/13/23 12:00 07/13/23 12:00 07/13/23 11:00 07/13/23 11:00 07/13/23 10:58 40 07/13/23 10:45 07/13/23 10:45 07/13/23 10:30 07/13/23 10:30 07/13/23 10:15 07/13/23 10:15 07/13/23 10:00 07/13/23 10:00 07/13/23 09:45 07/13/23 09:45 07/13/23 09:30 07/13/23 09:30 07/13/23 09:16 07/13/23 09:16 07/13/23 09:12 07/13/23 09:12 07/13/23 09:04 40 07/13/23 09:01 07/13/23 09:01 07/13/23 09:00 07/13/23 08:44 07/13/23 08:44 07/13/23 08:30 07/13/23 08:15 07/13/23 08:15 07/13/23 08:00 07/13/23 08:00 07/13/23 07:45 07/13/23 07:45 07/13/23 07:30 07/13/23 07:30 07/13/23 07:20 40 07/13/23 07:15 07/13/23 07:15 07/13/23 07:00 07/13/23 07:00 07/13/23 06:45 07/13/23 06:45 07/13/23 06:30 07/13/23 06:30 07/13/23 06:15 07/13/23 06:15 07/13/23 06:00 07/13/23 06:00 07/13/23 05:45 07/13/23 05:45 07/13/23 05:30 07/13/23 05:30 07/13/23 05:15 07/13/23 05:15 07/13/23 05:00 07/13/23 05:00 07/13/23 04:45 07/13/23 04:45 07/13/23 04:30 07/13/23 04:30 07/13/23 04:15 07/13/23 04:15 Laboratory Results Cardiac Enzymes 07/13/23 Range/Units 03:49 AST 22 (13-39) U/L CBC 07/13/23 Range/Units 03:49 WBC 16.61 H (4.8-10.8) K/ul RBC 3.64 L (4.20-5.40) M/uL Hgb 11.7 L (12.0-16.0) g/dl Hct 35.1 L (37.0-47.0) % Plt Count 284 (130-400) K/uL Neut # (Auto) 14.86 H (1.40-6.50) K/uL Lymph # (Auto) 0.97 L (1.20-3.40) K/uL [place] # (Auto) 0.65 H (0.11-0.59) K/uL Eos # (Auto) 0.00 (0.00-0.50) K/uL Baso # (Auto) 0.03 (0.00-0.20) K/uL Comprehensive Metabolic Panel 07/13/23 Range/Units 03:49 Sodium 136 (136-145) mmol/L Potassium 4.3 (3.5-5.1) mmol/L Chloride 110 H (98-107) mmol/L Carbon Dioxide 17 L (21-32) mmol/L BUN 39 H (6-23) mg/dl Creatinine 0.83 D (0.6-1.2) mg/dl Glucose 115 H (70-99(Fasting)) mg/dl Calcium 7.6 L (8.6-10.3) mg/dl AST 22 (13-39) U/L ALT 21 (7-52) U/L Alkaline Phosphatase 55 (34-104) U/L Total Protein 5.3 L (6.0-8.3) gm/dl Albumin 2.9 L (3.4-5.0) gm/dl Intake and Output 07/13/23 07/13/23 07/13/23 06:59 14:59 22:59 Intake Total 1690.511 / 3723.151 600.929 / 700.929 100 / 700.929 Output Total 360 / 1015 200 / 200 Balance 1330.511 / 2708.151 400.929 / 500.929 100 / 500.929 Intake: IV 1650.511 / 3603.151 600.929 / 700.929 100 / 700.929 Acetaminophen 1,000 mg In 100 100 / 100 ml @ 400 mls/hr IV Q8H PRN Rx#: [id number] Azithromycin 500 mg In Dextrose 255 / 255 5% 250 ml @ 127.5 mls/hr IV NOW STA Rx#:[id number] Heparin Sodium/Dextrose 25,000 273.5 / 550.650 39.6 / 39.6 units In 500 ml @ 1,200 UNITS/ HR 24 mls/hr IV .[id number] [facility] Rx #:[id number] Lactated Ringer's 1,000 ml @ 50 931.667 / 2005.167 237.5 / 237.5 mls/hr IV .Q20H [facility] Rx#: [id number] Phenylephrine/Nss 25 mg In 250 217.427 / 488.185 47.413 / 47.413 ml @ 0.5 MCG/KG/MIN 22.95 mls/ hr IV .[id number] [facility] Rx#:[id number] fentaNYL citrate 2,500 mcg In 127.917 / 192.334 21.416 / 21.416 250 ml @ 125 MCG/HR 12.5 mls/hr IV .Q20H [facility] Rx#:[id number] metroNIDAZOLE 500 mg In 100 ml 100 / 300 @ 100 mls/hr IV Q8H [facility] Rx#: [id number] Tube Feeding 40 / 120 Output: Urine Amount (Catheter) 360 / 1015 200 / 200 Hyman/Indwelling 360 / 1015 200 / 200 Other: Weight 80.9 kg Weight Measurement Method Built in [facility] Diagnostic Findings Telemetry: Atrial fibrillation for only a brief time following presentation, after that sinus rhythm throughout. PG Care Time/CCT Total # of Minutes Spent Total Time Spent with Patient: Total time spent is greater than 50% in coordination of care (as documented) at patient's floor/unit and/or counseling patient: Coding Level of Care Code 23450 INT INP/OBS CARE 3/75MIN Diagnoses Elevated troponin R79.89 Atrial fibrillation with RVR I48.91 HFrEF (heart failure with reduced ejection fraction) I50.20
--- NOTE | 2023-07-13 19:51 | Hospitalist Progress Note ---
Date of Service July 13, 2023 Assessment & Plan (1) Septic shock: Plan: 2nd to right-sided pneumonia shock resolved now off phenylephrine blood cultures negative to date sputum cx negative remains on low rate LR at 50cc/hr cont to follow cultures (2) Sepsis: Plan: 2nd to pneumonia (+/- e.coli UTI) blood cx's thus far negative IV abx today changed to combo of IV ertapenem + zithromax; cefepime d/c (3) Atrial fibrillation with RVR: Plan: resolved converted to NSR HD #1 remains in NSR remains on heparin infusion for anticoagulation appreciate cardiology assistnace (4) Pneumonia: Plan: RML on admission imaging likely there is left sided basilar pneumonia as well pneumonia led to acute hypoxic respiratory failure requiring intubation/mech ventilation s/p successful extubation this am to NC O2 defer IV abx selection to ICU team - they have changed her regimen from cefepime, levaquin, and flagyl to combo of IV ertapenem with zithromax appreciate ICU team assistance (5) Prediabetes: Plan: Last A1c 5.9% - 2018 check another a1c in am ICU Glycemic protocol in meantime (6) Multiple sclerosis: Plan: No recent MS symptoms or flares per family. Was last on Copaxone in 2020. (7) Hypothyroidism: Plan: TSH 5.1 takes both synthroid + liothyronine at home defer dose adjustment to the outpatient setting will resume both meds in am (8) GERD (gastroesophageal reflux disease): Plan: PPI daily (9) Pancreatic duct dilated: Plan: CT abd/pelvis with dilation of pancreatic duct - 6mm Lipase is not elevated Will ultimately need MRCP and further w/u for this (10) Elevated troponin: Plan: at minimum experienced myocardial demand ischemia in the setting of #1, #3, #4 peak HS trop >1000 echo with mildly depressed LV function appreciate cardiology consultation ?had recent outpatient stress test? will need to get those records via the [facility] system (11) HFrEF (heart failure with reduced ejection fraction): Plan: EF 45-50% on echo this admission mild LV dysfunction cautious use of fluids, etc etiology of mild drop in EF uncertain - could be severe sepsis related or possibly due to the rapid a.fib vs other Dr Mike recommending repeat limited echo later in the stay she does not appear decompensated today (12) Acute hypoxic respiratory failure: Plan: 2nd to pneumonia s/p intubation with mech ventilation HD#1 successful extubation today, AM of 07/13/23, to room air defer management to ICU team (13) UTI (urinary tract infection): Plan: 2nd e.coli ertapenem will cover this pathogen the previously used cefepime would have also covered this pathogen thus, day #3 of effective antibiotic therapy (14) Acute metabolic encephalopathy: Plan: 2nd to sepsis/pneumonia/UTI/ICU psychosis/etc supportive care avoid sedatives if at all possible frequent reorientation blinds open during day, closed at night, etc Plan resume cymbalta eric to avoid withdrawal family updated at bedside appreciate ICU assistance Admission and Anticipated Discharge Date Admission Date: July 11, 2023 Subjective events of last 24 hours noted underwent SBT this am and weaning parameters were met therefore she was extubated this am and has remained on NC O2 since that time during my visit her family was at bedside she has remained confused since extubation patient unable to provide any meaningful history or ROS Review of Systems Review of Systems: Unobtainable due to cognitive status Physical Exam Physical Exam: gen - awake, but confused and groggy, does follow commands, no distress mouth - MMM neck - no obvious JVD heart - RRR, s1 s2, no murmur lungs - dense rales R base, mild rales L base, no wheezing, no increased work of breathing abd - soft NT ND BS+ ext - pulses 2+ b/l, no edema, feet are cool psych - oriented to person only Results & Data Results & Data Vital Signs (Past 12 Hours) Vital Signs Temp Pulse Resp BP Pulse Ox O2 Del Method O2 Flow Rate 07/13/23 19:00 37.1 C 66 16 96 07/13/23 19:00 132/82 07/13/23 19:00 132/82 07/13/23 18:00 37.0 C 76 20 97 Nasal Cannula 3 07/13/23 18:00 152/88 H 07/13/23 17:00 37.0 C 71 15 97 07/13/23 17:00 131/87 07/13/23 16:00 141/75 H 07/13/23 16:00 37.0 C 65 17 93 07/13/23 15:00 37.1 C 63 21 94 07/13/23 15:00 124/79 07/13/23 14:00 37.1 C 65 13 98 07/13/23 14:00 124/78 07/13/23 13:00 36.8 C 87 23 94 07/13/23 13:00 137/97 07/13/23 12:00 Nasal Cannula 4 07/13/23 12:00 37.1 C 63 12 97 07/13/23 12:00 108/77 07/13/23 11:00 131/78 07/13/23 11:00 37.3 C 87 18 94 07/13/23 10:58 10 L 07/13/23 10:45 37.3 C 84 12 94 07/13/23 10:45 116/79 07/13/23 10:30 36.3 C L 91 H 12 91 07/13/23 10:30 131/82 07/13/23 10:15 133/85 07/13/23 10:15 36.3 C L 89 19 92 07/13/23 10:00 125/72 07/13/23 10:00 37.0 C 91 H 23 91 07/13/23 09:45 37.3 C 89 12 93 07/13/23 09:45 122/71 07/13/23 09:30 37.4 C 87 12 94 07/13/23 09:30 123/73 07/13/23 09:16 125/61 07/13/23 09:16 37.6 C H 74 13 95 07/13/23 09:12 105/64 07/13/23 09:12 37.6 C H 55 L 20 97 07/13/23 09:04 24 07/13/23 09:01 37.6 C H 82 14 07/13/23 09:01 142/83 H 07/13/23 09:00 37.5 C 18 07/13/23 08:44 37.6 C H 80 19 95 07/13/23 08:44 95/68 L 07/13/23 08:30 104/68 07/13/23 08:15 111/76 07/13/23 08:15 37.6 C H 51 L 18 97 07/13/23 08:00 118/75 07/13/23 08:00 37.6 C H 51 L 18 97 Laboratory Results Laboratory Results - last 24 hr 0307/12/23 07/13/23 10:10 20:11 03:49 WBC 16.61 H RBC 3.64 L Hgb 11.7 L Hct 35.1 L MCV 96.4 MCH 32.1 MCHC 33.3 RDW Std Deviation 50.1 H RDW Coeff of Humberto 14.1 Plt Count 284 MPV 10.6 Immature Gran % (Auto) 0.6 Neut % (Auto) 89.5 Lymph % (Auto) 5.8 [place] % (Auto) 3.9 Eos % (Auto) 0.0 Baso % (Auto) 0.2 Neut # (Auto) 14.86 H Lymph # (Auto) 0.97 L [place] # (Auto) 0.65 H Eos # (Auto) 0.00 Baso # (Auto) 0.03 Immature Gran # (Auto) 0.10 Heparin Anti-Xa, LM Wt Cancelled Heparin Anti-Xa, Unfract 0.26 L Sodium 136 Potassium 4.3 Chloride 110 H Carbon Dioxide 17 L Anion Gap 9 BUN 39 H Creatinine 0.83 D Est Cr Clr Drug Dosing 61.5 Est GFR ( Amer) 78.8 Est GFR (Non-Af Amer) 68.0 BUN/Creatinine Ratio 47.0 H Glucose 115 H POC Glucose 111 H Calcium 7.6 L Phosphorus 2.4 L Magnesium 2.4 Total Bilirubin 0.4 AST 22 ALT 21 Alkaline Phosphatase 55 Total Protein 5.3 L Albumin 2.9 L Globulin 2.4 L Albumin/Globulin Ratio 1.2 Urine Legionella Ag SEE NOTE 07/13/23 07/13/23 07/13/23 09:18 11:20 17:55 WBC RBC Hgb Hct MCV MCH MCHC RDW Std Deviation RDW Coeff of Humberto Plt Count MPV Immature Gran % (Auto) Neut % (Auto) Lymph % (Auto) [place] % (Auto) Eos % (Auto) Baso % (Auto) Neut # (Auto) Lymph # (Auto) [place] # (Auto) Eos # (Auto) Baso # (Auto) Immature Gran # (Auto) Heparin Anti-Xa, LM Wt Heparin Anti-Xa, Unfract < 0.10 L Sodium Potassium Chloride Carbon Dioxide Anion Gap BUN Creatinine Est Cr Clr Drug Dosing Est GFR ( Amer) Est GFR (Non-Af Amer) BUN/Creatinine Ratio Glucose POC Glucose 88 76 Calcium Phosphorus Magnesium Total Bilirubin AST ALT Alkaline Phosphatase Total Protein Albumin Globulin Albumin/Globulin Ratio Urine Legionella Ag PG Care Time/CCT Total # of Minutes Spent Total Time Spent with Patient: Total time spent is greater than 50% in coordination of care (as documented) at patient's floor/unit and/or counseling patient: Coding Level of Care Code 20872 SUB INP/OBS CARE 05/07MIN Diagnoses Septic shock A41.9; R65.21 Sepsis A41.9 Atrial fibrillation with RVR I48.91 Pneumonia J18.9 Prediabetes R73.03 Multiple sclerosis G35 Hypothyroidism E03.9 GERD (gastroesophageal reflux disease) K21.9 Pancreatic duct dilated K86.89 Elevated troponin R79.89 HFrEF (heart failure with reduced ejection fraction) I50.20 Acute hypoxic respiratory failure J96.01 UTI (urinary tract infection) N39.0 Acute metabolic encephalopathy G93.41
[2023-07-13] MEDS: IBUPROFEN SUSPENSION 100MG/5ML 120ML PO ONE (20:38)
[2023-07-13] MEDS: LIDOCAINE 5% 1 PATCH TD SCH (20:39)
[2023-07-14] MEDS: METOPROLOL TARTRATE 1 MG/ML VIAL IV STA ×2 (01:55→02:28)
[2023-07-14] MEDS ORDERED: Heparin IV Adult Wt-Based Standard *NO* INITIAL Bolus Protocol IV STA (02:33)
[2023-07-14] MEDS ORDERED: HEPARIN SOD (PORCINE) 1000 UNIT/ML IV ONE (02:39)
[2023-07-14] MEDS ORDERED: HEPARIN SODIUM/DEXTROSE 25,000 UNITS/500 ML BAG IV SCH (02:45)
[2023-07-14] MEDS: HEPARIN SODIUM/DEXTROSE 25,000 UNITS/500 ML BAG IV SCH (03:17)
[2023-07-14 03:23] LABS: Prothrombin Time 11.4 Seconds (9.0-12.0)
[2023-07-14] MEDS: Heparin IV Adult Wt-Based Low-Dose w/ INITIAL Bolus Protocol IV STA (03:47)
[2023-07-14 04:55] LABS: Basophils # (auto) 0.03 K/uL (0.00-0.20); Basophils % (auto) 0.2 %; Hemoglobin 12.4 g/dl (12.0-16.0); Immature Granulocytes # (auto) 0.09 K/uL (0.01-0.20); Immature Granulocytes % (auto) 0.6 %; Lymphocytes # (auto) 1.03 K/uL (1.20-3.40); Lymphocytes % (auto) 6.4 %; Mean Corpuscular Hemoglobin 32.8 pg (25.0-34.0); Mean Corpuscular Hgb Conc 33.5 g/dL (32.0-36.0); Mean Corpuscular Volume 97.9 fL (80.0-100.0); Mean Platelet Volume 10.1 fL (9.4-12.4); Monocytes # (auto) 0.62 K/uL (0.11-0.59); Monocytes % (auto) 3.9 %; Neutrophils # (auto) 14.27 K/uL (1.40-6.50); Neutrophils % (auto) 88.9 %; Platelet Count 255 K/uL (130-400); RDW Standard Deviation 50.5 fL (36.4-46.3); Red Blood Count 3.78 M/uL (4.20-5.40); White Blood Count 16.04 K/ul (4.8-10.8)
[2023-07-14 05:11] LABS: Albumin Globulin Ratio 1.2 (0.9-2); Albumin Level 3.1 gm/dl (3.4-5.0); BUN Creatinine Ratio 45.9 (10-20); Bilirubin,Total 0.4 mg/dl (0.2-1.0); Calcium 7.9 mg/dl (8.6-10.3); Creatinine Clr Calc Pharmacy 69.7 ml/min; Est GFR (African American) 90.6 ml/min; Est GFR (Non-African American) 78.1 ml/min; Globulin 2.6 gm/dl (2.5-4.0); Magnesium 2.6 mg/dl (1.7-2.4); Phosphorus 2.2 mg/dl (2.5-4.9); Potassium 4.1 mmol/L (3.5-5.1); Total Protein 5.7 gm/dl (6.0-8.3)
[2023-07-14] MEDS: MoRPHine SULFATE 2 MG/ML CARP IV STA (05:23)
[2023-07-14] MEDS: METOPROLOL TARTRATE 1 MG/ML VIAL IV SCH (05:24)
--- NOTE | 2023-07-14 06:59 | Electrocardiogram Report ---
Test Reason : Blood Pressure : / mmHG Vent. Rate : 143 BPM Atrial Rate : 000 BPM P-R Int : 000 ms QRS Dur : 080 ms QT Int : 252 ms P-R-T Axes : 000 075 056 degrees QTc Int : 388 ms Atrial fibrillation with rapid ventricular response Low voltage QRS Nonspecific T wave abnormality Abnormal ECG When compared with ECG of 18-OCT-2015 09:02, Atrial fibrillation has replaced Sinus rhythm Nonspecific T wave abnormality now evident in Inferior leads Nonspecific T wave abnormality now evident in Anterior leads Confirmed by William Mike ([id number]) on 07/14/2023 6:59:48 AM Referred By: REFERRED SELF Confirmed By:William Mike
--- NOTE | 2023-07-14 07:02 | Electrocardiogram Report ---
Test Reason : Blood Pressure : / mmHG Vent. Rate : 103 BPM Atrial Rate : 103 BPM P-R Int : 158 ms QRS Dur : 074 ms QT Int : 372 ms P-R-T Axes : 074 050 067 degrees QTc Int : 487 ms Sinus tachycardia with Premature atrial complexes Otherwise normal ECG When compared with ECG of 11-JUL-2023 07:40, (unconfirmed) Sinus rhythm has replaced Atrial fibrillation Nonspecific T wave abnormality, improved in Inferior leads Nonspecific T wave abnormality no longer evident in Anterolateral leads Confirmed by William Mike ([id number]) on 07/14/2023 7:02:03 AM Referred By: REFERRED SELF Confirmed By:William Mike
--- NOTE | 2023-07-14 07:03 | Electrocardiogram Report ---
Test Reason : Blood Pressure : / mmHG Vent. Rate : 094 BPM Atrial Rate : 094 BPM P-R Int : 170 ms QRS Dur : 078 ms QT Int : 392 ms P-R-T Axes : 073 050 074 degrees QTc Int : 490 ms Normal sinus rhythm Normal ECG When compared with ECG of 11-JUL-2023 09:32, (unconfirmed) Premature atrial complexes are no longer Present Confirmed by William Mike ([id number]) on 07/14/2023 7:02:47 AM Referred By: REFERRED SELF Confirmed By:William Mike
--- NOTE | 2023-07-14 07:11 | Electrocardiogram Report ---
Test Reason : Blood Pressure : / mmHG Vent. Rate : 096 BPM Atrial Rate : 096 BPM P-R Int : 152 ms QRS Dur : 078 ms QT Int : 372 ms P-R-T Axes : 056 048 075 degrees QTc Int : 469 ms Poor data quality, interpretation may be adversely affected Sinus rhythm with Premature atrial complexes Low voltage QRS Borderline ECG When compared with ECG of 11-JUL-2023 09:32, (unconfirmed) No significant change was found Confirmed by William Mike ([id number] on 07/14/2023 7:11:30 AM Referred By: REFERRED SELF Confirmed By:William Mike
--- NOTE | 2023-07-14 07:29 | Hospitalist Progress Note ---
Date of Service July 14, 2023 Assessment & Plan (1) Septic shock: Plan: 2nd to right-sided pneumonia, initially required pressors shock resolved blood cultures negative to date sputum cx negative -continue ertapenem, consider deescalation back to cefepime -MRSA nasal and legionella urine Ag negative (2) Atrial fibrillation with RVR: Plan: In/out of afib, currently afib remains on heparin infusion for anticoagulation continue metoprolol 50 mg bid rate control reviewed cardiology recs 07/13 (3) Pneumonia: Plan: Acute hypoxic respiratory failure secondary to RML pneumonia RML on admission imaging likely there is left sided basilar pneumonia as well pneumonia led to acute hypoxic respiratory failure requiring intubation/mech ventilation successful extubation 07/12 Abx as above (4) Prediabetes: Plan: A1c 5.8% (5) Multiple sclerosis: Plan: No recent MS symptoms or flares per family. Was last on Copaxone in 2019. (6) Hypothyroidism: Plan: TSH 5.1 takes both synthroid + liothyronine at home defer dose adjustment to the outpatient setting -resumed (7) GERD (gastroesophageal reflux disease): Plan: PPI daily (8) Pancreatic duct dilated: Plan: CT abd/pelvis with dilation of pancreatic duct - 6mm Lipase is not elevated Will ultimately need MRCP and further w/u for this, can be pursued as outpatient (9) Elevated troponin: Plan: peak HS trop >1000, downtrended echo with mildly depressed LV function appreciate cardiology consultation recent outpatient stress test negative elevation of troponin consistent with demand ischemia setting of septic shock limited Echo prior to discharge reassess EF, possibly was depressed due to sepsis (10) HFrEF (heart failure with reduced ejection fraction): Plan: EF 45-50% on echo this admission mild LV dysfunction cautious use of fluids, etc etiology of mild drop in EF uncertain - could be severe sepsis related or possibly due to the rapid a.fib vs other Dr Mike recommending repeat limited echo later in the stay she does not appear decompensated today (11) Acute hypoxic respiratory failure: Plan: 2nd to pneumonia see above (12) UTI (urinary tract infection): Plan: 2nd e.coli ertapenem will cover this pathogen the previously used cefepime would have also covered this pathogen thus, day #4 of effective antibiotic therapy (13) Acute metabolic encephalopathy: Plan: 2nd to sepsis/pneumonia/UTI/ICU psychosis/etc supportive care avoid sedatives if at all possible frequent reorientation blinds open during day, closed at night, etc Plan resumed cymbalta R hilar 4.9 cm soft tissue density on chest CT - could be pneumonia or lymphadenopathy - follow up chest CT recommended in 1-2 months to ensure resolution family updated at bedside /2 transfer out of ICU Admission and Anticipated Discharge Date Admission Date: July 11, 2023 Subjective agitated and confused overnight calm this morning. denied shortness of breath or CP +cough sitting in chair in ICU Physical Exam 2 Physical Exam: PHYSICAL EXAMINATION Last 24h vital signs reviewed, see documentation in flowsheet General: comfortable appearing, no distress, sitting in chair HEENT: Normocephalic, atraumatic, pupils round and equal, sclerae anicteric, no conjunctival injection, moist mucus membranes Lungs: Normal respiratory effort. diminished on R mid/base with midfield crackles Heart: irreg irreg, no murmurs. No JVD Abdomen: Soft, nontender, nondistended. Bowel sounds present. Extremities: Warm, dry, well-perfused. mild extremity edema. Neuro: Alert and oriented x self, family, hospital, not to situation, confused, face asymmetric but no droop or paresis, moves 4 extremities well Psych: Normal affect and behavior Results & Data Results & Data Vital Signs (Past 12 Hours) Vital Signs Temp Pulse Resp BP Pulse Ox O2 Del Method O2 Flow Rate 07/14/23 06:18 115 H 139/88 07/14/23 06:04 37.4 C 112 H 21 87 L 07/14/23 06:04 139/88 07/14/23 06:00 37.4 C 117 H 14 87 L 07/14/23 05:24 117 H 122/79 07/14/23 05:00 37.2 C 109 H 22 95 07/14/23 05:00 122/79 07/14/23 04:00 37.4 C 109 H 25 H 95 07/14/23 04:00 130/107 H 07/14/23 03:01 37.5 C 110 H 28 H 94 07/14/23 03:01 132/107 H 07/14/23 03:01 132/107 H 07/14/23 02:47 122 H 132/94 07/14/23 02:44 37.4 C 111 H 22 93 07/14/23 02:44 132/94 07/14/23 02:28 108 H 137/102 H 07/14/23 02:17 120 H 137/102 H 07/14/23 02:00 37.0 C 111 H 18 97 07/14/23 02:00 137/102 H 07/14/23 01:55 128 H 139/100 07/14/23 01:00 37.0 C 123 H 27 H 95 07/14/23 01:00 139/100 07/14/23 00:00 138/103 H 07/14/23 00:00 37.1 C 113 H 22 99 07/14/23 00:00 111 H 07/13/23 23:00 37.1 C 126 H 14 82 L 07/13/23 23:00 153/105 H 07/13/23 22:00 37.0 C 104 H 15 94 07/13/23 22:00 150/102 H 07/13/23 21:00 141/83 H 07/13/23 21:00 37.3 C 69 14 95 07/13/23 20:00 37.2 C 61 28 H 97 07/13/23 20:00 142/80 H 07/13/23 20:00 Nasal Cannula 3 Laboratory Results 07/14/23 04:38 07/14/23 04:38 PG Care Time/CCT Total # of Minutes Spent Total Time Spent with Patient: Total time spent is greater than 50% in coordination of care (as documented) at patient's floor/unit and/or counseling patient: Coding Level of Care Code 65449 SUB INP/OBS CARE 3/50MIN Diagnoses Septic shock A41.9; R65.21 Atrial fibrillation with RVR I48.91 Pneumonia J18.9 Prediabetes R73.03 Multiple sclerosis G35 Hypothyroidism E03.9 GERD (gastroesophageal reflux disease) K21.9 Pancreatic duct dilated K86.89 Elevated troponin R79.89 HFrEF (heart failure with reduced ejection fraction) I50.20 Acute hypoxic respiratory failure J96.01 UTI (urinary tract infection) N39.0 Acute metabolic encephalopathy G93.41
[2023-07-14] MEDS: HYDROCORTISONE SOD 50 MG in SYRINGE 0 ML IV SCH (08:33)
[2023-07-14] MEDS: LEVOTHYROXINE SODIUM 50 MCG TABLET PO SCH (08:34)
[2023-07-14] MEDS: CEROVITE ADV FORMULA TAB PO SCH (08:34)
[2023-07-14] MEDS: LIOTHYRONINE SODIUM 5 MCG TAB PO SCH (08:34)
[2023-07-14 08:37] LABS: Estimated Average Glucose 120 mg/dl; Hemoglobin A1C 5.8 % (4.5-5.6)
[2023-07-14] MEDS ORDERED: MULTIVITAMIN TAB PO SCH (09:00)
[2023-07-14] MEDS ORDERED: AZITHROMYCIN 250 MG in DEXTROSE 5% 250 ML IV SCH (09:00)
--- NOTE | 2023-07-14 09:02 | Critical Care Progress Note ---
Date of Service July 14, 2023 Assessment & Plan (1) Atrial fibrillation with RVR: (2) GERD (gastroesophageal reflux disease): (3) Pneumonia: (4) Sepsis: (5) Shock circulatory: (6) Nephrolithiasis: (7) Hypothyroidism: (8) Multiple sclerosis: (9) CHF (congestive heart failure): Plan Reason Critically Ill: 78-year-old female present to the hospital with generalized weakness and shortness of breath Past medical history: Multiple sclerosis, hypothyroidism, GERD, anxiety/ depression Patient sent to the ICU for septic shock with new onset A-fib RVR Neuro - Extubated and following commands. Delirious. Delirium is slowly improving. CT head 07/11/2023 negative for any acute intracranial abnormality -- Multiple sclerosis Takes armodafinil for generalized fatigue. Not on any medication for MS right now. Used to be on Copaxone, has been off of it since 2019 Cardiac - -- Shock with new onset A-fib RVR Multifactorial A-fib with RVR as well as possible sepsis from right lower lobe pneumonia --New onset systolic CHF Could be from severe sepsis Troponins are trending down 2D echo 07/11/2023: EF 40-45% concentric LVH, global hypokinesis of left ventricle, RV not well-visualized -- Shock state is resolving. Respiratory - Patient extubated 07/13/2023. Continue antibiotics for right-sided pneumonia. GI - -- No acute issues RENAL/LYTES - -- CARLO Patient with mild acidemia likely from sepsis. CARLO has resolved. -- Nephrolithiasis right-sided with no hydronephrosis - Continue with Hyman catheter ENDO - -- Hypothyroidism TSH 5.1 with free T4 within normal limit HEME - -- Macrocytic anemia Monitor H&H ID - -- Sepsis with multilobar pneumonia -Patient with ESBL E. coli growing in the urine. Continue ertapenem day #2. Urine Legionella antigen and MRSA screen was negative. --Prophylaxis VTE: Heparin drip GI: Pantoprazole Lines: Peripheral Patient stable for downgrade to PCU status at this time. Critical care services to sign off. Please call questions. Thank you. Admission and Anticipated Discharge Date Admission Date: July 11, 2023 Subjective Patient is delirious this morning. Overnight she had runs of atrial fibrillation with rapid ventricular response. She has received several doses of metoprolol and heparin was restarted. She is sitting up in the bed today, but experiencing some hallucinations. She denies any obvious pain. Hemodynamics are stable otherwise other than mild tachycardia. Review of Systems Review of Systems: All systems reviewed & are unremarkable except as noted in HPI & below Physical Exam Physical Exam: Constitutional: Alert and awake. No apparent distress. HEENT: PERRLA Respiratory system: Decreased air entry bilaterally, no wheeze, no rhonchi CVS: S1-S2 positive, no murmurs or gallops Abdomen: Soft, nontender, nondistended, positive bowel sounds x4 Extremities: +1 pulses bilaterally radialis/ dorsalis pedis, no cyanosis, no edema Neuro: No localizing signs, moving all extremities Psych: Disoriented. G/U: Positive Hyman Skin: no rashes, warm and dry Lymphatic: no cervical or axillary lymphadenopathy Results & Data Results & Data Vital Signs (Past 12 Hours) Vital Signs Temp Pulse Resp BP Pulse Ox 07/14/23 08:34 120 H 134/106 H 07/14/23 06:18 115 H 139/88 07/14/23 06:04 37.4 C 112 H 21 87 L 07/14/23 06:04 139/88 07/14/23 06:00 37.4 C 117 H 14 87 L 07/14/23 05:24 117 H 122/79 07/14/23 05:00 37.2 C 109 H 22 95 07/14/23 05:00 122/79 07/14/23 04:00 37.4 C 109 H 25 H 95 07/14/23 04:00 130/107 H 07/14/23 03:01 37.5 C 110 H 28 H 94 07/14/23 03:01 132/107 H 07/14/23 03:01 132/107 H 07/14/23 02:47 122 H 132/94 07/14/23 02:44 37.4 C 111 H 22 93 07/14/23 02:44 132/94 07/14/23 02:28 108 H 137/102 H 07/14/23 02:17 120 H 137/102 H 07/14/23 02:00 37.0 C 111 H 18 97 07/14/23 02:00 137/102 H 07/14/23 01:55 128 H 139/100 07/14/23 01:00 37.0 C 123 H 27 H 95 07/14/23 01:00 139/100 07/14/23 00:00 138/103 H 07/14/23 00:00 37.1 C 113 H 22 99 07/14/23 00:00 111 H 07/13/23 23:00 37.1 C 126 H 14 82 L 07/13/23 23:00 153/105 H 07/13/23 22:00 37.0 C 104 H 15 94 07/13/23 22:00 150/102 H 07/13/23 21:00 141/83 H 07/13/23 21:00 37.3 C 69 14 95 Coding Level of Care Code 58269 SUB INP/OBS CARE 235MIN Diagnoses Atrial fibrillation with RVR I48.91 GERD (gastroesophageal reflux disease) K21.9 Pneumonia J18.9 Sepsis A41.9 Shock circulatory R57.9 Nephrolithiasis N20.0 Hypothyroidism E03.9 Multiple sclerosis G35 CHF (congestive heart failure) I50.9
[2023-07-14 09:29] LABS: ANTI-Xa, UFH(UnfractionatedHep 0.22 IU/ml (0.3-0.7)
[2023-07-14] MEDS: PANTOprazole 40 MG TAB PO SCH (09:44)
[2023-07-14] MEDS: METOPROLOL TARTRATE 25 MG TAB PO SCH (11:27)
[2023-07-14] MEDS: POT PHOSPHATE MONOBASIC W/ SOD TAB PO SCH (11:27)
[2023-07-14] MEDS: [UNRECOGNIZED DRUG - REMARK] SCH (13:13)
--- NOTE | 2023-07-14 16:07 | Cardiology Progress Note ---
Date of Service July 14, 2023 Assessment & Plan (1) Elevated troponin: (2) Atrial fibrillation with RVR: (3) HFrEF (heart failure with reduced ejection fraction): Plan 1. Elevated troponin: Her troponin was quite high for the first day after admission, however she was severely ill and I think it is most likely this troponin elevation is demand ischemia. It could be in the presence of underlying coronary disease but there is no evidence of ST segment elevation on her electrocardiograms. Her stress test in January 2023 was negative which makes demand ischemia more likely as well. 2. Atrial fibrillation: Her atrial fibrillation may be related to her sepsis, although it is possible she has atrial fibrillation at other times as well. She has now had recurrence, it is still possible it is from her acute illness but with recurrence it makes it more likely that she has more of a future risk of atrial fibrillation. Agree with anticoagulation and rate control for now. 3. Congestive heart failure: Her left ventricular function is mildly reduced, this could be due to her sepsis, we should repeat the echocardiogram as limited study before discharge. We will have a comparison from her stress test I believe once we get those results. If her ejection fraction remains reduced we may want to consider evaluation for causes of cardiomyopathy but if it normalizes I would assume it is due to the severe illness on presentation. Admission and Anticipated Discharge Date Admission Date: July 11, 2023 Subjective She appears more comfortable today, at the time my evaluation she is tired but has no cardiac complaints. She did revert back to atrial fibrillation at 9:00 last evening, she seems unaware of it as far as symptoms go. Dr. Hernandez did provide her stress test in their office which was done on January 20, 2023. She only exercised for slightly under 2 minutes but reached 111% of her maximal predicted heart rate. Her left ventricle was small with normal left ventricular systolic function and no wall motion abnormalities and her left ventricular function improved with exercise. Her ejection fraction was 60%. Physical Exam Physical Exam: Constitutional: Alert, resting in bed but not very conversational. HEENT: Unremarkable Neck: No jugular venous distention, carotid pulses are normal and equal bilaterally without bruits. Pulmonary: Clear to auscultation bilaterally. Cardiac: Irregular somewhat fast rhythm with no murmur, gallop or rub. Abdomen: Soft, nontender with normal bowel sounds. Extremities: No edema. Neurologic: No focal findings. Skin: No rash, ecchymoses or petechiae. Results & Data Vital Signs (Past 12 Hours) Vital Signs Temp Pulse Resp BP Pulse Ox O2 Del Method O2 Flow Rate 07/14/23 11:00 37.5 C 106 H 18 93 Room Air 07/14/23 11:00 139/105 H 07/14/23 10:00 37.6 C H 108 H 19 94 07/14/23 10:00 145/106 H 07/14/23 09:00 37.4 C 115 H 18 07/14/23 09:00 127/108 H 07/14/23 08:49 118 H 07/14/23 08:34 120 H 134/106 H 07/14/23 08:22 134/106 H 07/14/23 08:22 37.4 C 130 H 20 94 Nasal Cannula 2 07/14/23 08:00 37.2 C 117 H 15 07/14/23 06:18 115 H 139/88 07/14/23 06:04 37.4 C 112 H 21 87 L 07/14/23 06:04 139/88 07/14/23 06:00 37.4 C 117 H 14 87 L 07/14/23 05:24 117 H 122/79 07/14/23 05:00 37.2 C 109 H 22 95 07/14/23 05:00 122/79 Laboratory Results Cardiac Enzymes 07/14/23 Range/Units 04:38 AST 19 (13-39) U/L Coagulation 07/14/23 Range/Units 02:35 PT 11.4 (9.0-12.0) Seconds CBC 07/14/23 Range/Units 04:38 WBC 16.04 H (4.8-10.8) K/ul RBC 3.78 L (4.20-5.40) M/uL Hgb 12.4 (12.0-16.0) g/dl Hct 37.0 (37.0-47.0) % Plt Count 255 (130-400) K/uL Neut # (Auto) 14.27 H (1.40-6.50) K/uL Lymph # (Auto) 1.03 L (1.20-3.40) K/uL [place] # (Auto) 0.62 H (0.11-0.59) K/uL Eos # (Auto) 0.00 (0.00-0.50) K/uL Baso # (Auto) 0.03 (0.00-0.20) K/uL Comprehensive Metabolic Panel 07/14/23 Range/Units 04:38 Sodium 139 (136-145) mmol/L Potassium 4.1 (3.5-5.1) mmol/L Chloride 110 H (98-107) mmol/L Carbon Dioxide 21 (21-32) mmol/L BUN 34 H (6-23) mg/dl Creatinine 0.74 (0.6-1.2) mg/dl Glucose 109 H (70-99(Fasting)) mg/dl Calcium 7.9 L (8.6-10.3) mg/dl AST 19 (13-39) U/L ALT 23 (7-52) U/L Alkaline Phosphatase 65 (34-104) U/L Total Protein 5.7 L (6.0-8.3) gm/dl Albumin 3.1 L (3.4-5.0) gm/dl Intake and Output 07/14/23 07/14/23 07/14/23 06:59 14:59 22:59 Intake Total 767.967 / 1597.096 531.4 / 531.4 Output Total 465 / 1240 201 / 201 Balance 302.967 / 357.096 330.4 / 330.4 Intake: IV 767.967 / 1597.096 411.4 / 411.4 Acetaminophen 1,000 mg In 100 100 / 200 ml @ 400 mls/hr IV Q8H PRN Rx#: [id number] Heparin Sodium/Dextrose 25,000 88.8 / 88.8 72.4 / 72.4 units In 500 ml @ 1,200 UNITS/ HR 24 mls/hr IV .[id number] [facility] Rx #:[id number] Lactated Ringer's 1,000 ml @ 50 579.167 / 816.667 339 / 339 mls/hr IV .Q20H [facility] Rx#: [id number] Oral 120 / 120 Output: Urine Amount (Catheter) 465 / 1240 200 / 200 Hyman/Indwelling 465 / 1240 200 / 200 # Bowel Movements Other: Weight 78.5 kg Weight Measurement Method Built in [facility] Diagnostic Findings Telemetry: Sinus rhythm over the last several days until 9:00 last evening with conversion to atrial fibrillation with a rapid heart rate. Heart rate remains elevated at somewhat over 100 today. PG Care Time/CCT Total # of Minutes Spent Total Time Spent with Patient: Total time spent is greater than 50% in coordination of care (as documented) at patient's floor/unit and/or counseling patient: Coding Level of Care Code 71411 SUB INP/OBS CARE 2/35MIN Diagnoses Elevated troponin R79.89 Atrial fibrillation with RVR I48.91 HFrEF (heart failure with reduced ejection fraction) I50.20
[2023-07-14] MEDS: METOPROLOL TARTRATE 25 MG TAB PO STA (16:25)
[2023-07-14 19:23] LABS: ANTI-Xa, UFH(UnfractionatedHep 0.28 IU/ml (0.3-0.7)
[2023-07-14] MEDS: METOPROLOL TARTRATE 50 MG TAB PO SCH (20:23)
[2023-07-14] MEDS: MELATONIN 3 MG TAB PO SCH (20:24)
[2023-07-14] MEDS: DULoxetine HCL 60 MG CAP PO SCH (20:25)
[2023-07-14] MEDS: FAMOTIDINE 40 MG TABLET PO SCH (20:25)
[2023-07-14] MEDS: DULoxetine HCL 30 MG CAP PO SCH (20:26)
[2023-07-15 02:13] LABS: Hematocrit (blood only) 39.9 % (37.0-47.0); Hemoglobin 13.4 g/dl (12.0-16.0); Mean Corpuscular Hemoglobin 32.4 pg (25.0-34.0); Mean Corpuscular Hgb Conc 33.6 g/dL (32.0-36.0); Mean Corpuscular Volume 96.6 fL (80.0-100.0); Mean Platelet Volume 9.8 fL (9.4-12.4); Nucleated RBC # (auto) 0.02 K/uL (0.00-0.12); Nucleated RBC % (auto) 0.1 %; Platelet Count 280 K/uL (130-400); RDW Coefficient of Variation 13.7 % (11.5-14.5); RDW Standard Deviation 49.4 fL (36.4-46.3); Red Blood Count 4.13 M/uL (4.20-5.40); White Blood Count 13.78 K/ul (4.8-10.8)
[2023-07-15 02:28] LABS: Albumin Globulin Ratio 1.2 (0.9-2); BUN Creatinine Ratio 43.5 (10-20); Bilirubin,Total 0.4 mg/dl (0.2-1.0); Calcium 8.1 mg/dl (8.6-10.3); Est GFR (African American) 100.8 ml/min; Globulin 2.5 gm/dl (2.5-4.0); Magnesium 2.2 mg/dl (1.7-2.4); Phosphorus 1.8 mg/dl (2.5-4.9); Potassium 3.7 mmol/L (3.5-5.1); Total Protein 5.5 gm/dl (6.0-8.3)
[2023-07-15 03:09] LABS: ANTI-Xa, UFH(UnfractionatedHep 0.43 IU/ml (0.3-0.7)
--- NOTE | 2023-07-15 10:21 | Cardiology Progress Note ---
Date of Service July 15, 2023 Assessment & Plan (1) Elevated troponin: (2) Atrial fibrillation with RVR: (3) HFrEF (heart failure with reduced ejection fraction): Plan 1. Elevated troponin: Her troponin was quite high for the first day after admission, however she was severely ill and I think it is most likely this troponin elevation is demand ischemia. It could be in the presence of underlying coronary disease but there is no evidence of ST segment elevation on her electrocardiograms. Her stress test in January 2023 was negative which makes demand ischemia more likely as well. She is now on metoprolol tartrate 50 mg twice a day but her heart rate is somewhat fast. I am going to give additional 25 mg and increase her dose to 75 mg twice a day. Her blood pressure is little elevated currently so she should be able to handle higher medications. 2. Atrial fibrillation: Her atrial fibrillation may be related to her sepsis, although it is possible she has atrial fibrillation at other times as well. She has now had recurrence and has remained in it now for about 36 hours. She is asymptomatic suggesting this may be a more chronic condition such as longstanding PAF that was unrecognized, it is still possible it is from her acute illness but with recurrence it makes it more likely that she has more of a future risk of atrial fibrillation. Agree with anticoagulation and rate control for now. We can transition to oral anticoagulants, I would recommend Eliquis, her dose would be 5 mg twice a day. I have not placed those orders. 3. Congestive heart failure: Her left ventricular function was mildly reduced, this could be due to her sepsis, we should repeat the echocardiogram as limited study before discharge. On her prior stress test her left ventricular function was not diminished so hopefully this is just stunning. If her ejection fraction remains reduced we may want to consider evaluation for causes of cardiomyopathy but if it normalizes I would assume it is due to the severe illness on presentation. Admission and Anticipated Discharge Date Admission Date: July 11, 2023 Subjective She is feeling better, she feels stronger and is sitting in the chair next to her bed. She has no awareness of her heart rhythm (atrial fibrillation). Physical Exam Physical Exam: Constitutional: Alert, cooperative, sitting comfortably in a chair next to her bed. HEENT: Unremarkable Neck: No jugular venous distention, carotid pulses are normal and equal bilaterally without bruits. Pulmonary: Clear to auscultation bilaterally. Cardiac: Irregular somewhat fast rhythm with no murmur, gallop or rub. Abdomen: Soft, nontender with normal bowel sounds. Extremities: No edema. Neurologic: No focal findings. Skin: No rash, ecchymoses or petechiae. Results & Data Vital Signs (Past 12 Hours) Vital Signs Temp Pulse Pulse Resp BP BP Pulse Ox 07/15/23 07:57 36.5 C 128 H 23 147/107 H 93 07/15/23 03:17 104 H 21 94 07/15/23 03:17 132/93 07/15/23 03:15 36.5 C 07/15/23 00:00 109 H 07/14/23 23:12 36.7 C 07/14/23 23:08 121/92 07/14/23 23:08 105 H 20 97 O2 Del Method O2 Flow Rate 07/15/23 07:57 Nasal Cannula 1 07/15/23 03:17 Nasal Cannula 1 07/15/23 03:17 07/15/23 03:15 07/15/23 00:00 07/14/23 23:12 07/14/23 23:08 07/14/23 23:08 Nasal Cannula 3 Laboratory Results Cardiac Enzymes 07/15/23 Range/Units 01:53 AST 19 (13-39) U/L CBC 07/15/23 Range/Units 01:53 WBC 13.78 H (4.8-10.8) K/ul RBC 4.13 L (4.20-5.40) M/uL Hgb 13.4 (12.0-16.0) g/dl Hct 39.9 (37.0-47.0) % Plt Count 280 (130-400) K/uL Comprehensive Metabolic Panel 07/15/23 Range/Units 01:53 Sodium 141 (136-145) mmol/L Potassium 3.7 (3.5-5.1) mmol/L Chloride 110 H (98-107) mmol/L Carbon Dioxide 23 (21-32) mmol/L BUN 27 H (6-23) mg/dl Creatinine 0.62 (0.6-1.2) mg/dl Glucose 132 H (70-99(Fasting)) mg/dl Calcium 8.1 L (8.6-10.3) mg/dl AST 19 (13-39) U/L ALT 23 (7-52) U/L Alkaline Phosphatase 60 (34-104) U/L Total Protein 5.5 L (6.0-8.3) gm/dl Albumin 3.0 L (3.4-5.0) gm/dl Intake and Output 07/14/23 07/15/23 07/15/23 22:59 06:59 14:59 Intake Total 600.417 / 1384.617 252.800 / 1384.617 98.8 / 98.8 Output Total 600 / 801 Balance 0.417 / 583.617 252.800 / 583.617 98.8 / 98.8 Intake: IV 240.417 / 854.617 202.800 / 854.617 98.8 / 98.8 Heparin Sodium/Dextrose 25,000 240.417 / 515.617 202.800 / 515.617 98.8 / 98.8 units In 500 ml @ 1,300 UNITS/ HR 26 mls/hr IV .[id number] [facility] Rx #:[id number] Oral 360 / 530 50 / 530 Output: Urine Amount (Catheter) 600 / 800 Hyman/Indwelling 600 / 800 Other: # Unmeasured Voids 1 Weight 78 kg Weight Measurement Method Built in [facility] Diagnostic Findings Telemetry: Atrial fibrillation now for about 36 hours, rate averaging around 100 but often higher. PG Care Time/CCT Total # of Minutes Spent Total Time Spent with Patient: Total time spent is greater than 50% in coordination of care (as documented) at patient's floor/unit and/or counseling patient: Coding Level of Care Code 51481 SUB INP/OBS CARE 2/35MIN Diagnoses Elevated troponin R79.89 Atrial fibrillation with RVR I48.91 HFrEF (heart failure with reduced ejection fraction) I50.20
[2023-07-15] MEDS: METOPROLOL TARTRATE 25 MG TAB PO STA (11:20)
--- NOTE | 2023-07-15 12:45 | Electrocardiogram Report ---
Test Reason : Blood Pressure : / mmHG Vent. Rate : 081 BPM Atrial Rate : 081 BPM P-R Int : 154 ms QRS Dur : 080 ms QT Int : 406 ms P-R-T Axes : 059 022 050 degrees QTc Int : 471 ms Normal sinus rhythm Low voltage QRS Borderline ECG When compared with ECG of 11-JUL-2023 13:40, (unconfirmed) Premature atrial complexes are no longer Present Confirmed by William Mike ([id number]) on 07/15/2023 12:44:46 PM Referred By: REFERRED SELF Confirmed By:William Mike
--- NOTE | 2023-07-15 13:20 | Electrocardiogram Report ---
Test Reason : Blood Pressure : / mmHG Vent. Rate : 051 BPM Atrial Rate : 051 BPM P-R Int : 150 ms QRS Dur : 082 ms QT Int : 466 ms P-R-T Axes : -02 036 044 degrees QTc Int : 429 ms Sinus bradycardia Low voltage QRS Borderline ECG When compared with ECG of 12-JUL-2023 05:00, (unconfirmed) Vent. rate has decreased BY 30 BPM Confirmed by William Mike ([id number] on 07/15/2023 1:19:51 PM Referred By: REFERRED SELF Confirmed By:William Mike
--- NOTE | 2023-07-15 17:48 | Hospitalist Progress Note ---
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 Today clearly asymmetric with especially L hand/wrist weak. Has been in atrial fibrillation. -MRI brain, main concern is subacute stroke since MS has been recently quiescent, however, MS flare is possible. If brain MRI negative may need cspine imaging. Peripheral nerve compression injury also possible though would not explain facial asymmetry. LE exam is challenging with baseline weakness and not clearly asymmetric. -currently on heparin for afib. if significant sized infarct present would be safest to hold heparin until discussed with neurologist (2) Septic shock: Plan: 2nd to right-sided pneumonia, initially required pressors shock resolved blood cultures negative to date sputum cx negative -continue ertapenem, consider deescalation back to cefepime -MRSA nasal and legionella urine Ag negative -improving (3) Atrial fibrillation with RVR: Plan: In/out of afib, rapid afib this AM, back in NSR this afternoon remains on heparin infusion for anticoagulation continue metoprolol increased to 75 bid, discussed with Dr. Mike reviewed cardiology recs 07/14 (4) Pneumonia: Plan: Acute hypoxic respiratory failure secondary to RML pneumonia RML on admission imaging likely there is left sided basilar pneumonia as well pneumonia led to acute hypoxic respiratory failure requiring intubation/mech ventilation successful extubation 07/12 Abx as above (5) Prediabetes: Plan: A1c 5.8% (6) Multiple sclerosis: Plan: See above No recent MS symptoms or flares per family. Was last on Copaxone in 2019. (7) Hypothyroidism: Plan: TSH 5.1 takes both synthroid + liothyronine at home defer dose adjustment to the outpatient setting -resumed (8) GERD (gastroesophageal reflux disease): Plan: PPI daily (9) Pancreatic duct dilated: Plan: CT abd/pelvis with dilation of pancreatic duct - 6mm Lipase is not elevated Will ultimately need MRCP and further w/u for this, can be pursued as outpatient (10) Elevated troponin: Plan: peak HS trop >1000, downtrended echo with mildly depressed LV function appreciate cardiology consultation recent outpatient stress test negative - obtained and reviewed these records from [facility] cardiology elevation of troponin consistent with demand ischemia setting of septic shock limited Echo prior to discharge reassess EF, possibly was depressed due to sepsis (11) HFrEF (heart failure with reduced ejection fraction): Plan: EF 45-50% on echo this admission mild LV dysfunction cautious use of fluids, etc etiology of mild drop in EF uncertain - could be severe sepsis related or possibly due to the rapid a.fib vs other Dr Mike recommending repeat limited echo later in the stay she does not appear decompensated today (12) Acute hypoxic respiratory failure: Plan: 2nd to pneumonia see above (13) UTI (urinary tract infection): Plan: 2nd e.coli ertapenem will cover this pathogen the previously used cefepime would have also covered this pathogen thus, day #5 of effective antibiotic therapy (14) Acute metabolic encephalopathy: Plan: 2nd to sepsis/pneumonia/UTI/ICU psychosis/etc supportive care avoid sedatives if at all possible frequent reorientation blinds open during day, closed at night, etc -improved Plan resumed cymbalta R hilar 4.9 cm soft tissue density on chest CT - could be pneumonia or lymphadenopathy - follow up chest CT recommended in 1-2 months to ensure resolution daughter updated at bedside 07/13, / PCU status Admission and Anticipated Discharge Date Admission Date: July 11, 2023 Subjective more alert and conversational today, partially oriented, reports L hand weakness - unclear onset of this probably prior to admission - she and report L arm/wrist swelling when she came to ED and it was xrayed, had NOT had history of UE weakness from prior MS which affected only gait and LE, facial asymmetry unchanged which he thinks is different, unclear whether any LLE weakness Physical Exam 2 Physical Exam: PHYSICAL EXAMINATION Last 24h vital signs reviewed, see documentation in flowsheet General: comfortable appearing, no distress, sitting in chair HEENT: Normocephalic, atraumatic, pupils round and equal, sclerae anicteric, no conjunctival injection, moist mucus membranes Lungs: Normal respiratory effort. diminished on R mid/base with midfield crackles - unchanged Heart: irreg irreg, tachycardic, no murmurs. No JVD Abdomen: Soft, nontender, nondistended. Bowel sounds present. Extremities: Warm, dry, well-perfused. mild lower extremity edema and LUE edema. Neuro: Alert and oriented x self, family, hospital, year, not fully to situation, less confused, much more conversational, patrizia EOMI, face asymmetric but no droop or paresis, tongue midline, RUE and R guest relations coordinator 5/5, L hand weakness present guest relations coordinator 3/5 wrist probably 3/5, biceps/triceps and delt 4/5. LE both 4/5 at hip flexors, knee extensors, dorsi/plantar flexion no clear asymmetry Psych: Normal affect and behavior Results & Data Results & Data Vital Signs (Past 12 Hours) Vital Signs Temp Pulse Pulse Resp BP Pulse Ox O2 Del Method 07/15/23 16:46 36.6 C 86 20 137/86 92 Room Air 07/15/23 12:13 36.6 C 61 19 128/82 95 Room Air 07/15/23 11:50 75 07/15/23 07:57 36.5 C 128 H 23 147/107 H 93 Nasal Cannula O2 Flow Rate 07/15/23 16:46 07/15/23 12:13 07/15/23 11:50 07/15/23 07:57 1 Laboratory Results 07/15/23 01:53 07/15/23 01:53 PG Care Time/CCT Total # of Minutes Spent Total Time Spent with Patient: Total time spent is greater than 50% in coordination of care (as documented) at patient's floor/unit and/or counseling patient: Coding Level of Care Code 51128 SUB INP/OBS CARE 3/50MIN Diagnoses LUE weakness R29.898 Septic shock A41.9; R65.21 Atrial fibrillation with RVR I48.91 Pneumonia J18.9 Prediabetes R73.03 Multiple sclerosis G35 Hypothyroidism E03.9 GERD (gastroesophageal reflux disease) K21.9 Pancreatic duct dilated K86.89 Elevated troponin R79.89 HFrEF (heart failure with reduced ejection fraction) I50.20 Acute hypoxic respiratory failure J96.01 UTI (urinary tract infection) N39.0 Acute metabolic encephalopathy G93.41
--- NOTE | 2023-07-15 18:38 | Magnetic Resonance Report ---
MRI OF THE BRAIN WITHOUT IV CONTRAST CLINICAL HISTORY: Left upper extremity weakness COMPARISON STUDY: CT of the brain dated 07/11/2023. MRI of the brain dated 09/02/2021. TECHNIQUE: MRI of the brain was performed utilizing various T1 and T2-weighted sequences in the axial , sagittal, and coronal planes. IV contrast was not administered for this examination. The examinatio n was performed using the multiple sclerosis protocol. FINDINGS: Brain parenchyma: There is a 7 mm focus of restricted diffusion centered in the right thalamus consis tent with an acute to subacute lacunar infarct. No additional foci of restricted diffusion are seen. There is no hemorrhage or mass effect. There is age-related involutional change noting moderate confl uent subcortical and periventricular microangiopathic disease. No extra-axial fluid collection is see n. The cerebellar tonsils are normal in configuration. Ventricles, sulci, and cisterns: Prominent secondary to involutional change. Pituitary and sella: Unremarkable. Intracranial vasculature: Normal flow voids are maintained at the skull base. Orbits: The bony orbits are grossly intact. Orbital contents are normal in appearance noting bilatera l ocular lens implants. Sinuses and mastoids: Clear. Calvarium: Unremarkable. Cervical cord: Partially visualized cervical spinal cord is normal in morphology and signal intensity . IMPRESSION: 1. There is an acute to subacute subcentimeter lacunar infarct centered in the right thalamus. 2. Additional foci of restricted diffusion are identified. 3. There is no hemorrhage or mass effect. ACT 112: Negative or not required by law. Electronically signed by: Ian Hidalgo M.D. 07/15/2023 6:35 PM
[2023-07-15] MEDS ORDERED: PHARMACIST DISCHARGE MED REC CONSULT PRN (18:59)
--- NOTE | 2023-07-15 19:29 | Communication Note ---
Date of Service: July 15, 2023 Subacute or acute stroke Reviewed brain MRI - 7 mm infarct R thalamus. Corresponds to her deficits - predominantly L hand weakness, milder LUE and possible LLE weakness but 3-4/5, facial asymmetry without paresis -was not a candidate for thrombolysis because of unknown time/date of onset before or during critical illness, anticoagulation on heparin drip, also deficit relatively mild -likely embolic given new diagnosis of PAF on admission -should be safe to continue anticoagulation since infarct is very small -has already had TTE, A1c -ordered carotid duplex -ASA, statin -consult neurology Updated patient, her son, and at bedside keira
[2023-07-15] MEDS: ASPIRIN 81 MG ECTAB PO SCH (20:21)
[2023-07-15] MEDS: METOPROLOL TARTRATE 25 MG TAB PO SCH (20:22)
[2023-07-16 04:57] LABS: Hematocrit (blood only) 37.4 % (37.0-47.0); Hemoglobin 12.6 g/dl (12.0-16.0); Mean Corpuscular Hemoglobin 32.1 pg (25.0-34.0); Mean Corpuscular Hgb Conc 33.7 g/dL (32.0-36.0); Mean Corpuscular Volume 95.2 fL (80.0-100.0); Mean Platelet Volume 9.9 fL (9.4-12.4); Nucleated RBC # (auto) 0.03 K/uL (0.00-0.12); Nucleated RBC % (auto) 0.3 %; Platelet Count 319 K/uL (130-400); RDW Coefficient of Variation 13.5 % (11.5-14.5); RDW Standard Deviation 47.5 fL (36.4-46.3); Red Blood Count 3.93 M/uL (4.20-5.40); White Blood Count 8.75 K/ul (4.8-10.8)
[2023-07-16 05:11] LABS: Albumin Globulin Ratio 1.1 (0.9-2); Albumin Level 2.8 gm/dl (3.4-5.0); BUN Creatinine Ratio 40.7 (10-20); Bilirubin,Total 0.4 mg/dl (0.2-1.0); Calcium 8.1 mg/dl (8.6-10.3); Chol HDL Ratio 2.6 (0-5); Creatinine Clr Calc Pharmacy 86.9 ml/min; Est GFR (African American) 102.5 ml/min; Est GFR (Non-African American) 88.4 ml/min; Globulin 2.5 gm/dl (2.5-4.0); Potassium 3.6 mmol/L (3.5-5.1); Total Protein 5.3 gm/dl (6.0-8.3)
[2023-07-16 05:19] LABS: ANTI-Xa, UFH(UnfractionatedHep 0.42 IU/ml (0.3-0.7)
--- NOTE | 2023-07-16 07:50 | Ultrasound Report ---
ULTRASOUND OF THE CAROTID ARTERIES CLINICAL HISTORY: Stroke. COMPARISON STUDY: No priors. TECHNIQUE: Real-time, grayscale, and color Doppler sonography of the carotid arteries is performed. I mages are reviewed in the transverse and longitudinal planes. FINDINGS: The carotid arteries are patent bilaterally and demonstrate antegrade flow. There is No significant a therosclerotic plaque identified. Normal doppler arterial waveforms are seen throughout. Velocity yaima surements are listed below. Common carotid peak systolic velocity (cm/sec): RIGHT: 69 LEFT: 67 ICA proximal peak systolic velocity (cm/sec): RIGHT: 38 LEFT: 36 ICA mid peak systolic velocity (cm/sec): RIGHT: 43 LEFT: 75 ICA distal peak systolic velocity (cm/sec): RIGHT: 47 LEFT: 63 ICA/CC peak systolic ratio: RIGHT: 0.7 LEFT: 1.1 Antegrade flow was shown in the vertebral arteries. The external carotid arteries are patent. IMPRESSION: 1. There is no sonographic evidence of hemodynamically significant stenosis in the right or left mendoza tid arterial system. 2. Antegrade flow is shown in the vertebral arteries. ACT 112: Negative or not required by law. Electronically signed by: Ian Hidalgo M.D. 07/16/2023 7:48 AM
[2023-07-16] MEDS: ATORVASTATIN 40 MG TAB PO SCH (08:29)
--- NOTE | 2023-07-16 09:54 | Neurology Consultation ---
Date of Consultation July 16, 2023 Assessment & Plan (1) Ischemic stroke: History of Present Illness Attending Physician: Randee Jaimes MD History of Present Illness pt this morning feeling good. still left hand weakness. mri brain showing rt thalamic ischemic stroke. no bleed. pt with some numbness on leg. chart reviewed. pt on heparin drip for atrial fib. echo negative. admission HPI: Susan is a 78-year-old female with a past medical history of diabetes, autoimmune thyroiditis, C5 radiculopathy, L5 radiculopathy, multiple sclerosis stable as of 2022 and off biologic/disease modifying therapy presented to the ER with sepsis and A-fib RVR. By signout report daughter recently had the flu, patient had nausea and weakness yesterday. Very weak this morning with 1 fall and appeared ill. EMS was contacted and patient was with a heart rate over 180 suspicious for SVT versus A-fib RVR. Adenosine 6 mg and subsequent 12 mg was given by EMS in the field, underlying rhythm was shown to be A-fib RVR. She received 800 cc normal saline bolus and route to the hospital by EMS. While in the ER she is found to have a rate of [id number] consistent with A-fib RVR with hypotension. Somyb-bb-cdcp ultrasound showed no effusion/tamponade, plethoric IVC and chest x-ray showed a right-sided infiltrate. She was started on treatment for sepsis due to pneumonia. She received 2.5 L in addition to 800 cc of fluid prehospital at bolus rate which meets her AB W fluid goals of 20 to 95 cc per sepsis protocol. Random cortisol was elevated and not indicative of adrenal suppression. Patient remained hypotensive but with MAP greater than 65. Case was reviewed with the ICU, phenylephrine was started with the goal of starting amiodarone once pressures had stabilized. Due to hypoxia, respiratory distress and critical illness intubation was discussed with the family at bedside who subsequently confirmed full code in a code setting, and okay for intubation with her current level of illness. Subsequently intubated in the ER, patient did convert to sinus rhythm and amiodarone was deferred. At time of hospitalist admitting assessment patient on phenylephrine, fentanyl drip at 25, propofol at 20. Heparin drip was started. Collateral not available from patient due to critical illness and ETT in place. Allergies Allergy/AdvReac Type Severity Reaction Status Date / Time latex Allergy Intermediate RASH Verified 12/04/23 10:26 interferon beta-1a Allergy Mild UNKNOWN Verified 03/16/23 10:26 gabapentin Allergy Unknown unknown Verified 03/16/23 10:26 Penicillins Allergy Unknown UNKNOWN Verified 03/16/23 10:26 Gadolinium-Containing AdvReac Mild Headache Verified 07/14/23 01:53 Contrast Medi nickel AdvReac Unknown SKIN Verified 03/16/23 10:26 IRRITATION baclofen AdvReac known Verified 03/16/23 10:26 Home Medications Medication Instructions Recorded Confirmed Type calcium carbonate 500 mg-vitamin 1 tab PO DAILY 12/03/18 07/11/23 History D3 5 mcg (200 unit) tablet liothyronine 5 mcg tablet (Cytomel) 5 mcg PO QAM #90 tabs 12/03/18 07/11/23 History melatonin 3 mg tablet 6 mg PO HS 12/03/18 07/11/23 History multivitamin (Daily Multi-Vitamin 1 tab PO DAILY 12/03/18 07/11/23 History tablet) vitamins A,C,O-ktjs-ltxkbp 4,296 1 cap PO DAILY 12/03/18 07/11/23 History mcg-226 mg-90 mg capsule (PreserVision AREDS) cholecalciferol (vitamin D3) 50 50 mcg PO DAILY 02/05/21 07/11/23 History mcg (2,000 unit) capsule ferrous sulfate 325 mg (65 mg 325 mg PO DAILY 10/11/21 07/11/23 History iron) tablet levothyroxine 50 mcg tablet 50 mcg PO DAILY 10/11/21 07/11/23 History naproxen 500 mg tablet 500 mg PO BID PRN pain 90 days 10/20/22 07/11/23 Rx #180 tabs omeprazole 40 mg capsule,delayed 40 mg PO DAILY 03/16/23 07/11/23 History release duloxetine 30 mg capsule,delayed 30 mg PO HS 90 days #90 caps 04/14/23 07/11/23 Rx release duloxetine 60 mg capsule,delayed 60 mg PO HS #90 caps 04/14/23 07/11/23 Rx release armodafinil 250 mg tablet (Nuvigil) 250 mg PO QAM #90 tabs 05/15/23 07/11/23 Rx famotidine 40 mg tablet 0 mg PO UD 07/11/23 07/11/23 History meloxicam 15 mg tablet 0 mg PO UD 07/11/23 07/11/23 History Patient History Medical History (Updated 07/16/23 @ 09:53 by David Swanson MD) Ischemic stroke GERD (gastroesophageal reflux disease) Osteoarthritis Degenerative disc disease Chronic back pain Compression fracture currently in a back brace --> from an accident 12/2019. Migraine Cervical disc disease Macular degeneration Multiple sclerosis H/O Rishi thyroiditis Surgical History History of section S/P ear surgery Left ear - zygomatic arch surgery History of colonoscopy H/O hand surgery right hand H/O foot surgery bilateral Family History Father Colon cancer Mother Dementia Aunt Breast cancer Lung cancer Other No family history of adverse response to anesthesia Social History Smoking Status: Never smoker Second Hand Exposure: No; Do You Dip or Chew Tobacco: No; Hx Alcohol Use: No Hx Substance Use: No Preferred Language: Panamanian Communication Ability: Unable Visual Impairment: No Limitations Hearing Ability: Normal Supervisor Ticket Sales Required: No Beliefs That Will Affect Care: None marital status: Current Living Situation: Spouse current occupational status: retired Feels Safe at Home: Yes Assistive Devices: Cane Review of Systems Review of Systems: All systems reviewed & are unremarkable except as noted in Subjective Constitutional: as per Subjective / HPI Eyes: as per Subjective / HPI Ear, Nose, Mouth, Throat: as per Subjective / HPI Respiratory: as per Subjective / HPI Cardiovascular: as per Subjective / HPI Gastrointestinal: as per Subjective / HPI Musculoskeletal: as per Subjective / HPI Integumentary: as per Subjective / HPI Neurologic: as per Subjective / HPI Psychiatric: as per Subjective / HPI Endocrine: as per Subjective / HPI Hematologic / Lymphatic: as per Subjective / HPI Allergy / Immunological: as per Subjective / HPI Exam (Neuro) Physical Exam: HEENT: normocephalic Neuro: Mental: AOx4, fluent speech, normal comprehension, no apraxia, no L/R confusion, no neglect CN: PERRL, Full EOM, symmetric face, intact sensation t/o face, midline T/U/P, 5/5 SCM/traps. Motor: No abnormal movements, normal tone and bulk, LUE: 4+/5 proximally and 4- /5 elbow extension/flexion. 3+/5 finger abduction and flexion and wrist extension. RUE 5-/5 t/o. b/l LE: 5-/5 t/o. Sens: intact to touch b/l grossly except slight decrease/numbness in her left leg below the knee. Coord: intact FNT b/l grossly. DTR: 2+ sym b/l Gait: deferred. Impression: 78 yo female with acute left arm weakness in setting of sepsis, newly dx Paroxsymal atrial fib in setting of hx of Multiple sclerosis. MRI brain noted for small ischemic stroke rt thalamic area. the stroke likely cause for the hand weakness as the lesion is near the posterior limb of internal capsule. does not appears to be MS related at this point. Recommendations: 1.continue Anticoagulation and plan to t ransition to oral anticoagulation (e.g. Eliquis). I do not feel the need for additional antiplatelet therapy so can stop ASA. pt at increase risk for bleed. 3. echo negative. will hold off on CTA as pt's kidney function not optimal and carotid ultrasound essentially unremarkable and not suspecting LVO. 4. Permissive Hypertension for next 24-4 8 hrs. Keep SBP goal range less than 220. Avoid hypotension. Do not stop beta-madiha if on it. 5. If noted for large intracranial vesse l stenosis, slow reduction of BP and allowing permissive HTN next 5-7 days. 6. Long-term SBP goal less than 130. 7. Plenty of hydration including IV flui d if possible (use isotonic solution) next 1-2 days. Avoid hypovolemia and hypotension. 8. Initiate DVT prevention therapy. 9. Avoid hypoglycemia, serum glucose goa l during hospitalization: 140-180. 10. Long-term HgA1c goal less than 7. 11. Start statin if not on it and no abs olute contraindication, long-term LDL goal less than 70. 12. Head of bed up 30 degrees if possibl e. 13. Stroke education by nursing and appr opriate staff. 15continue tx for her infection 16. Consult physical and occupational th erapy evaluation. please call again if new question. Chart reviewed I have spent more than 50% educating patient about potential diagnosis and neurological evaluation and coordinating care with patient's treatment team. Total time spent (including chart review and coordination of care): 60 min (this includes chart review). Results & Data Vital Signs (Past 12 Hours) Vital Signs Temp Pulse Pulse Resp BP BP Pulse Ox 07/16/23 08:25 36.6 C 86 22 149/79 H 91 07/16/23 03:07 36.6 C 07/16/23 00:00 66 07/15/23 23:09 37 C 07/15/23 23:08 72 25 H 90 07/15/23 23:08 165/95 H 07/15/23 22:00 73 16 91 O2 Del Method 07/16/23 08:25 Room Air 07/16/23 03:07 07/16/23 00:00 07/15/23 23:09 07/15/23 23:08 07/15/23 23:08 07/15/23 22:00 PG Care Time/CCT Total # of Minutes Spent Total Time Spent with Patient: Total time spent is greater than 50% in coordination of care (as documented) at patient's floor/unit and/or counseling patient: Coding Level of Care Code 94504 IN/OBS CONSULT LVL 4,60M Diagnoses Ischemic stroke I63.9
--- NOTE | 2023-07-16 11:51 | Cardiology Progress Note ---
Date of Service July 16, 2023 Assessment & Plan (1) Elevated troponin: (2) Atrial fibrillation with RVR: (3) HFrEF (heart failure with reduced ejection fraction): Plan 1. Elevated troponin: Her troponin was quite high for the first day after admission, however she was severely ill and I think it is most likely this troponin elevation is demand ischemia. It could be in the presence of underlying coronary disease but there is no evidence of ST segment elevation on her electrocardiograms. Her stress test in January 2023 was negative which makes demand ischemia more likely as well. She is now on metoprolol tartrate 75 mg twice a day, shortly after we gave that higher dose yesterday she converted to sinus rhythm so we do not know how much that will control her rate. Her blood pressure remains elevated. I am going to increase it to 100 mg twice a day. 2. Atrial fibrillation: Her atrial fibrillation may be related to her sepsis, although it is possible she has atrial fibrillation at other times as well. She has now had recurrence and has remained in it now for about 36 hours. She is asymptomatic suggesting this may be a more chronic condition such as longstanding PAF that was unrecognized, it is still possible it is from her acute illness but with recurrence it makes it more likely that she has more of a future risk of atrial fibrillation. Agree with anticoagulation and rate control for now. I did discuss with the family the possibility of figuring out whether she has ongoing paroxysmal atrial fibrillation in the future but that is not easy and may require an implantable loop recorder to be confident. I am not sure that is warranted if she tolerates anticoagulation well. I agree with Eliquis 5 mg twice a day. 3. Congestive heart failure: Her left ventricular function was mildly reduced, this could be due to her sepsis, we should repeat the echocardiogram as limited study before discharge. On her prior stress test her left ventricular function was not diminished so hopefully this is just stunning. If her ejection fraction remains reduced we may want to consider evaluation for causes of cardiomyopathy but if it normalizes I would assume it is due to the severe illness on presentation. Admission and Anticipated Discharge Date Admission Date: July 11, 2023 Subjective She looks very good today, she is sitting in a chair by her bed doing a crossword puzzle. She complains of hurting, by which she means she has some musculoskeletal discomfort. Physical Exam Physical Exam: Constitutional: Alert, cooperative, sitting comfortably in a chair next to her bed. HEENT: Unremarkable Neck: No jugular venous distention, carotid pulses are normal and equal bilaterally without bruits. Pulmonary: Clear to auscultation bilaterally. Cardiac: Regular rhythm with no murmur, gallop or rub. Abdomen: Soft, nontender with normal bowel sounds. Extremities: No edema. Neurologic: No focal findings. Skin: No rash, ecchymoses or petechiae. Results & Data Vital Signs (Past 12 Hours) Vital Signs Temp Pulse Pulse Resp BP Pulse Ox O2 Del Method 07/16/23 08:25 36.6 C 86 22 149/79 H 91 Room Air 07/16/23 03:07 36.6 C 07/16/23 00:00 66 Laboratory Results Cardiac Enzymes 07/16/23 Range/Units 04:33 AST 18 (13-39) U/L Lipids 07/16/23 Range/Units 04:33 Triglycerides 127 (0-150) mg/dl Cholesterol 170 (0-200) mg/dl HDL Cholesterol 66 mg/dl Cholesterol/HDL Ratio 2.6 (0-5) CBC 07/16/23 Range/Units 04:33 WBC 8.75 (4.8-10.8) K/ul RBC 3.93 L (4.20-5.40) M/uL Hgb 12.6 (12.0-16.0) g/dl Hct 37.4 (37.0-47.0) % Plt Count 319 (130-400) K/uL Comprehensive Metabolic Panel 07/16/23 Range/Units 04:33 Sodium 141 (136-145) mmol/L Potassium 3.6 (3.5-5.1) mmol/L Chloride 109 H (98-107) mmol/L Carbon Dioxide 27 (21-32) mmol/L BUN 24 H (6-23) mg/dl Creatinine 0.59 L (0.6-1.2) mg/dl Glucose 110 H (70-99(Fasting)) mg/dl Calcium 8.1 L (8.6-10.3) mg/dl AST 18 (13-39) U/L ALT 24 (7-52) U/L Alkaline Phosphatase 59 (34-104) U/L Total Protein 5.3 L (6.0-8.3) gm/dl Albumin 2.8 L (3.4-5.0) gm/dl Intake and Output 07/15/23 07/16/23 07/16/23 22:59 06:59 14:59 Intake Total 306.300 / 505.100 100 / 505.100 Balance 306.300 / 504.100 100 / 504.100 Intake: IV 306.300 / 405.100 Heparin Sodium/Dextrose 25,000 306.300 / 405.100 units In 500 ml @ 1,300 UNITS/ HR 26 mls/hr IV .[id number] [facility] Rx #:[id number] Oral 100 / 100 Other: # Unmeasured Voids 1 1 1 Weight 79.9 kg Weight Measurement Method Built in [facility] Diagnostic Findings Telemetry: Atrial fibrillation with a somewhat rapid heart rate yesterday morning, converted to sinus rhythm and has remained there since. No bradycardia. PG Care Time/CCT Total # of Minutes Spent Total Time Spent with Patient: Total time spent is greater than 50% in coordination of care (as documented) at patient's floor/unit and/or counseling patient: Coding Level of Care Code 30403 SUB INP/OBS CARE 2/35MIN Diagnoses Elevated troponin R79.89 Atrial fibrillation with RVR I48.91 HFrEF (heart failure with reduced ejection fraction) I50.20
[2023-07-16] MEDS: APIXABAN 5 MG TABLET PO SCH (12:22)
[2023-07-16] MEDS: METOPROLOL TARTRATE 25 MG TAB PO STA (12:22)
--- NOTE | 2023-07-16 14:25 | Pharmacy Report ---
- Date of Service July 16, 2023 - Pharmacy CVA/TIA Medication Review Medications to Prevent Stroke handout has been added to the patients discharge packet. Antiplatelet(s) * Antiplatelet therapy deferred due to use of anticoagulation and patient at increased risk for bleed (per Neuro Consult recs) Cholesterol * High intensity statin: atorvastatin 40 mg daily DVT Prophylaxis * Pharmacologic prophylaxis: already receiving apixaban Therapeutic Anticoagulation * Hx Afib/Aflutter noted, and patient is currently receiving apixaban 5mg BID Type 2 Diabetes * Patient does not have T2DM
--- NOTE | 2023-07-16 16:33 | Hospitalist Progress Note ---
Date of Service July 16, 2023 Assessment & Plan (1) Ischemic stroke: Plan: L thalamic 7mm infarct on MRI 07/14 Was not a candidate for TPA because onset of symptoms unknown and also was on a heparin drip already, also symptoms relatively mild -appreciate neurology consult 07/15. Presumed embolic stroke related to atrial fibrillation -carotid duplex negative. Had echo earlier this admission -changed heparin to apixaban -neurologist did not recommend concurrent aspirin -LDL is low and nearly at goal <70, continue moderate dose atorvastatin (2) Septic shock: Plan: 2nd to right-sided pneumonia, initially required pressors resolved blood cultures negative sputum cx negative -initially treated with cefepime/levaquin then azithro, changed to ertapenem completed 4 days of this, deescalate to oral cefdinir to complete 7-8 day course -MRSA nasal and legionella urine Ag negative -resolving - on room air and not coughing (3) Atrial fibrillation with RVR: Plan: Was in rapid afib (new diagnosis) at time of presentation to the ED In/out of afib, rapid afib this AM, back in NSR this afternoon -was on heparin IV from admission to 07/15, changed to apixaban -continue metoprolol increased to 100 bid, discussed with Dr. Mike 07/15 (4) Pneumonia: Plan: Acute hypoxic respiratory failure secondary to RML pneumonia RML on admission imaging likely there is left sided basilar pneumonia as well pneumonia led to acute hypoxic respiratory failure requiring intubation/mech ventilation successful extubation 07/12 Abx as above, resolved (5) Prediabetes: Plan: A1c 5.8% (6) Multiple sclerosis: Plan: See above No recent MS symptoms or flares per family. Was last on Copaxone in 2019. Current L hand weakness fits clinical picture of R thalamic CVA rather than MS flare Has baseline unsteady gait, leg weakness from old MS symptoms (7) Hypothyroidism: Plan: TSH 5.1 takes both synthroid + liothyronine at home defer dose adjustment to the outpatient setting -resumed (8) GERD (gastroesophageal reflux disease): Plan: PPI daily (9) Pancreatic duct dilated: Plan: CT abd/pelvis with dilation of pancreatic duct - 6mm Lipase is not elevated Will ultimately need MRCP and further w/u for this, can be pursued as outpatient (10) Elevated troponin: Plan: peak HS trop >1000, downtrended echo with mildly depressed LV function appreciate cardiology consultation recent outpatient stress test negative - obtained and reviewed these records from [facility] cardiology elevation of troponin consistent with demand ischemia setting of septic shock limited Echo prior to discharge reassess EF, possibly was depressed due to sepsis - ordered (11) HFrEF (heart failure with reduced ejection fraction): Plan: EF 45-50% on echo this admission mild LV dysfunction cautious use of fluids, etc etiology of mild drop in EF uncertain - could be severe sepsis related or possibly due to the rapid a.fib vs other Dr Mike recommending repeat limited echo later in the stay euvolemic with very mild leg edema (12) Acute hypoxic respiratory failure: Plan: 2nd to pneumonia see above (13) UTI (urinary tract infection): Plan: 2nd e.coli treated by antibiotics for pneumonia above (14) Acute metabolic encephalopathy: Plan: 2nd to sepsis/pneumonia/UTI/ICU psychosis/etc supportive care avoid sedatives if at all possible frequent reorientation blinds open during day, closed at night, etc -improved Plan resumed cymbalta R hilar 4.9 cm soft tissue density on chest CT - could be pneumonia or lymphadenopathy - follow up chest CT recommended in 1-2 months to ensure resolution daughter updated at bedside 07/13, 07/14, 07/15 Admission and Anticipated Discharge Date Admission Date: July 11, 2023 Subjective L hand remains weak. No coughing or shortness of breath. On room air. Physical Exam 2 Physical Exam: PHYSICAL EXAMINATION Last 24h vital signs reviewed, see documentation in flowsheet General: comfortable appearing, no distress, sitting in bed reading book HEENT: Normocephalic, atraumatic, pupils round and equal, sclerae anicteric, no conjunctival injection, moist mucus membranes Lungs: Normal respiratory effort. R base nearly clear, slight crackles, better air mvt, L clear Heart: reg, no murmurs. No JVD Abdomen: Soft, nontender, nondistended. Bowel sounds present. Extremities: Warm, dry, well-perfused. mild lower extremity edema and LUE edema. Neuro: Alert and oriented x self, family, hospital, partially to situation, less confused, conversational, patrizia EOMI, face more symmetric no paresis, tongue midline, RUE and R drum sander 5/5, L hand weakness present drum sander 3/5 wrist probably 3/5, biceps/triceps and delt 4/5. Psych: Normal affect and behavior Results & Data Results & Data Vital Signs (Past 12 Hours) Vital Signs Temp Pulse Resp BP Pulse Ox O2 Del Method O2 Flow Rate 07/16/23 15:52 36.6 C 65 16 145/89 H 95 Nasal Cannula 2 07/16/23 12:06 36.6 C 77 18 148/88 H 92 Room Air 07/16/23 08:25 36.6 C 86 22 149/79 H 91 Room Air Laboratory Results 07/16/23 04:33 07/16/23 04:33 PG Care Time/CCT Total # of Minutes Spent Total Time Spent with Patient: Total time spent is greater than 50% in coordination of care (as documented) at patient's floor/unit and/or counseling patient: Coding Level of Care Code 13999 SUB INP/OBS CARE 3/50MIN Diagnoses Ischemic stroke I63.9 Septic shock A41.9; R65.21 Atrial fibrillation with RVR I48.91 Pneumonia J18.9 Prediabetes R73.03 Multiple sclerosis G35 Hypothyroidism E03.9 GERD (gastroesophageal reflux disease) K21.9 Pancreatic duct dilated K86.89 Elevated troponin R79.89 HFrEF (heart failure with reduced ejection fraction) I50.20 Acute hypoxic respiratory failure J96.01 UTI (urinary tract infection) N39.0 Acute metabolic encephalopathy G93.41
[2023-07-16 17:12] LABS: Uric Acid, Random Urine 6 mg/dL (see note)
[2023-07-16] MEDS: METOPROLOL TARTRATE 100 MG TAB PO SCH (21:34)
[2023-07-17] MEDS: CEFDINIR 300 MG CAP PO SCH (08:21)
--- NOTE | 2023-07-17 15:07 | Cardiology Progress Note ---
Date of Service July 17, 2023 Assessment & Plan (1) Elevated troponin: (2) Atrial fibrillation with RVR: (3) HFrEF (heart failure with reduced ejection fraction): Plan 1. Elevated troponin: Her troponin was quite high for the first day after admission, however she was severely ill and I think it is most likely this troponin elevation is demand ischemia. It could be in the presence of underlying coronary disease but there is no evidence of ST segment elevation on her electrocardiograms. Her stress test in January 2023 was negative which makes demand ischemia more likely as well. She is now on metoprolol tartrate 100 mg twice a day and doing well on it. I am going to stop that tonight and put her on metoprolol succinate 200 mg daily starting tomorrow morning. 2. Atrial fibrillation: Her atrial fibrillation may be related to her sepsis, although it is possible she has atrial fibrillation at other times as well. She has now had recurrence. She is asymptomatic suggesting this may be a more chronic condition such as longstanding PAF that was unrecognized, it is still possible it is from her acute illness but with recurrence it makes it more likely that she has more of a future risk of atrial fibrillation. Agree with anticoagulation and rate control for now. I did discuss with the family the possibility of figuring out whether she has ongoing paroxysmal atrial fibrillation in the future but that is not easy and may require an implantable loop recorder to be confident. I am not sure that is warranted if she tolerates anticoagulation well. I agree with Eliquis 5 mg twice a day. 3. Congestive heart failure: Her left ventricular function was mildly reduced on presentation, that has improved on today's echo which shows normal left ventricular function suggesting that it was indeed due to her sepsis. At this point I would not pursue further evaluation. Admission and Anticipated Discharge Date Admission Date: July 11, 2023 Results & Data Vital Signs (Past 12 Hours) Vital Signs Pulse Resp BP Pulse Ox O2 Del Method O2 Flow Rate 07/17/23 11:32 75 20 93 07/17/23 11:32 129/80 07/17/23 08:00 66 07/17/23 08:00 Nasal Cannula 2 07/17/23 07:28 132/84 07/17/23 07:28 69 20 94 07/17/23 04:00 72 18 129/74 97 Laboratory Results Intake and Output 07/17/23 07/17/23 07/17/23 06:59 14:59 22:59 Intake Total 60 / 503.733 Output Total 400 / 400 350 / 350 Balance -340 / 103.733 -350 / -350 Intake: Oral 60 / 60 Output: Urine 400 / 400 350 / 350 Other: Weight 78.1 kg Weight Measurement Method [facility] Diagnostic Findings Her echocardiogram today shows normal left ventricular size and function with no wall motion abnormalities. PG Care Time/CCT Total # of Minutes Spent Total Time Spent with Patient: Total time spent is greater than 50% in coordination of care (as documented) at patient's floor/unit and/or counseling patient: Coding Level of Care Code 54509 SUB INP/OBS CARE 05/07MIN Diagnoses Elevated troponin R79.89 Atrial fibrillation with RVR I48.91 HFrEF (heart failure with reduced ejection fraction) I50.20
--- NOTE | 2023-07-17 15:14 | XCELERA ---
[id number] \\[id number]
--- NOTE | 2023-07-17 16:00 | Hospitalist Progress Note ---
Date of Service July 17, 2023 Assessment & Plan (1) Ischemic stroke: Plan: L thalamic 7mm infarct on MRI 07/14 Was not a candidate for TPA because onset of symptoms unknown and also was on a heparin drip already, also symptoms relatively mild -appreciate neurology consult 07/15. Presumed embolic stroke related to atrial fibrillation -carotid duplex negative. Had echo earlier this admission -changed heparin to apixaban -neurologist did not recommend concurrent aspirin because of embolic mechanism of stroke and high bleeding risk with ASA + anticoagulant -LDL is low and nearly at goal <70, continue moderate dose atorvastatin -follow up with her neurologist Dr. Pond (2) Septic shock: Plan: 2nd to right-sided pneumonia, initially required pressors resolved blood cultures negative sputum cx negative -initially treated with cefepime/levaquin then azithro, changed to ertapenem completed 4 days of this, deescalated to oral cefdinir to complete 7-8 day course -MRSA nasal and legionella urine Ag negative -resolving - on room air and not coughing (3) Atrial fibrillation with RVR: Plan: Was in rapid afib (new diagnosis) at time of presentation to the ED In/out of afib, rapid afib this AM, back in NSR this afternoon -was on heparin IV from admission to 07/15, changed to apixaban 07/15 -continue metoprolol 100 bid (4) Pneumonia: Plan: Acute hypoxic respiratory failure secondary to RML pneumonia RML on admission imaging likely there is left sided basilar pneumonia as well pneumonia led to acute hypoxic respiratory failure requiring intubation/mech ventilation successful extubation 07/12 Abx as above, resolved (5) Prediabetes: Plan: A1c 5.8% (6) Multiple sclerosis: Plan: See above No recent MS symptoms or flares per family. Was last on Copaxone in 2019. Current L hand weakness fits clinical picture of R thalamic CVA rather than MS flare Has baseline unsteady gait, leg weakness from old MS symptoms -follow up with Dr. Pond (7) Hypothyroidism: Plan: TSH 5.1 takes both synthroid + liothyronine at home defer dose adjustment to the outpatient setting -resumed (8) GERD (gastroesophageal reflux disease): Plan: PPI daily (9) Pancreatic duct dilated: Plan: CT abd/pelvis with dilation of pancreatic duct - 6mm Lipase is not elevated Will ultimately need MRCP and further w/u for this, can be pursued as outpatient (10) Elevated troponin: Plan: peak HS trop >1000, downtrended echo with mildly depressed LV function appreciate cardiology consultation recent outpatient stress test negative - obtained and reviewed these records from [facility] cardiology elevation of troponin consistent with demand ischemia setting of septic shock limited repeat Echo today to reassess EF, possibly was depressed due to sepsis - EF now 55-60%, improved (11) HFrEF (heart failure with reduced ejection fraction): Plan: EF 45-50% on echo early in admission but was septic at the time Normalized to 55-60% on 07/16 echo euvolemic with very mild leg edema (12) Acute hypoxic respiratory failure: Plan: 2nd to pneumonia see above (13) UTI (urinary tract infection): Plan: 2nd e.coli treated by antibiotics for pneumonia above (14) Acute metabolic encephalopathy: Plan: 2nd to sepsis/pneumonia/UTI/ICU psychosis/etc supportive care avoid sedatives if at all possible frequent reorientation blinds open during day, closed at night, etc -improved Plan resumed cymbalta R hilar 4.9 cm soft tissue density on chest CT - could be pneumonia or lymphadenopathy - follow up chest CT recommended in 1-2 months to ensure resolution daughter & updated at bedside 07/16 Admission and Anticipated Discharge Date Admission Date: July 11, 2023 Subjective L hand still weak but improved. Cough persists, on/off low amount of O2. In NSR on tele Not clear whether any L leg weakness past baseline Physical Exam Physical Exam: PHYSICAL EXAMINATION Last 24h vital signs reviewed, see documentation in flowsheet General: comfortable appearing, no distress, sitting in bed family in room HEENT: Normocephalic, atraumatic, pupils round and equal, sclerae anicteric, no conjunctival injection, moist mucus membranes Lungs: Normal respiratory effort. R base mild crackles, L clear Heart: reg, no murmurs. No JVD Abdomen: Soft, nontender, nondistended. Bowel sounds present. Extremities: Warm, dry, well-perfused. 1+ lower extremity edema and improved LUE edema. Neuro: Alert and oriented x self, family, hospital, basic situation, less confused, conversational, patrizia EOMI, face now symmetric no paresis, RUE and R school counselor 5/5, L hand weakness present school counselor 3/5 but definitely improved wrist probably 4-/5, biceps/triceps and delt 4/5. Psych: Normal affect and behavior Results & Data Results & Data Vital Signs (Past 12 Hours) Vital Signs Pulse Resp BP Pulse Ox O2 Del Method O2 Flow Rate 07/17/23 11:32 75 20 93 07/17/23 11:32 129/80 07/17/23 08:00 66 07/17/23 08:00 Nasal Cannula 2 07/17/23 07:28 132/84 07/17/23 07:28 69 20 94 07/17/23 04:00 72 18 129/74 97 PG Care Time/CCT Total # of Minutes Spent Total Time Spent with Patient: Total time spent is greater than 50% in coordination of care (as documented) at patient's floor/unit and/or counseling patient: Coding Level of Care Code 51926 SUB INP/OBS CARE 2/35MIN Diagnoses Ischemic stroke I63.9 Septic shock A41.9; R65.21 Atrial fibrillation with RVR I48.91 Pneumonia J18.9 Prediabetes R73.03 Multiple sclerosis G35 Hypothyroidism E03.9 GERD (gastroesophageal reflux disease) K21.9 Pancreatic duct dilated K86.89 Elevated troponin R79.89 HFrEF (heart failure with reduced ejection fraction) I50.20 Acute hypoxic respiratory failure J96.01 UTI (urinary tract infection) N39.0 Acute metabolic encephalopathy G93.41
[2023-07-18 07:45] LABS: Calcium 8.4 mg/dl (8.6-10.3); Creatinine Clr Calc Pharmacy 83.8 ml/min; Est GFR (African American) 100.8 ml/min; Potassium 3.8 mmol/L (3.5-5.1)
[2023-07-18 07:53] LABS: Hematocrit (blood only) 40.1 % (37.0-47.0); Hemoglobin 13.1 g/dl (12.0-16.0); Mean Corpuscular Hemoglobin 31.8 pg (25.0-34.0); Mean Corpuscular Hgb Conc 32.7 g/dL (32.0-36.0); Mean Corpuscular Volume 97.3 fL (80.0-100.0); Mean Platelet Volume 9.7 fL (9.4-12.4); Platelet Count 353 K/uL (130-400); RDW Coefficient of Variation 13.8 % (11.5-14.5); RDW Standard Deviation 49.4 fL (36.4-46.3); Red Blood Count 4.12 M/uL (4.20-5.40); White Blood Count 7.91 K/ul (4.8-10.8)
[2023-07-18] MEDS: METOPROLOL SUCC 50MG EXT REL TAB PO SCH (08:57)
[2023-07-18] MEDS: ACETAMINOPHEN 325 MG TAB PO PRN (16:45)
--- NOTE | 2023-07-19 17:13 | Hospitalist Progress Note ---
Date of Service July 19, 2023 Assessment & Plan (1) Ischemic stroke: Plan: L thalamic 7mm infarct on MRI 07/14 Was not a candidate for TPA because onset of symptoms unknown and also was on a heparin drip already, also symptoms relatively mild -appreciate neurology consult 07/15. Presumed embolic stroke related to atrial fibrillation -carotid duplex negative. Had echo earlier this admission -changed heparin to apixaban - counseled patient and family about bleeding risks and benefits over last several days -neurologist did not recommend concurrent aspirin because of embolic mechanism of stroke and high bleeding risk with ASA + anticoagulant -LDL is low and nearly at goal <70, continue moderate dose atorvastatin -follow up with her neurologist Dr. Pond (2) Septic shock: Plan: 2nd to right-sided pneumonia, initially required pressors resolved blood cultures negative sputum cx negative -initially treated with cefepime/levaquin then azithro, changed to ertapenem completed 4 days of this, deescalated to oral cefdinir to complete 7-8 day course -MRSA nasal and legionella urine Ag negative -resolving - on room air and not coughing (3) Atrial fibrillation with RVR: Plan: Was in rapid afib (new diagnosis) at time of presentation to the ED In/out of afib earlier this admission, back in NSR past 2 days -was on heparin IV from admission to 07/15, changed to apixaban 07/15 -continue metoprolol succinate but reduce dose from 200 to 175 because BP is soft (4) Pneumonia: Plan: Acute hypoxic respiratory failure secondary to RML pneumonia RML on admission imaging likely there is left sided basilar pneumonia as well pneumonia led to acute hypoxic respiratory failure [facility]/12 Abx as above, resolved (5) Prediabetes: Plan: A1c 5.8% (6) Multiple sclerosis: Plan: See above No recent MS symptoms or flares per family. Was last on Copaxone in 2019. Current L hand weakness fits clinical picture of R thalamic CVA rather than MS flare Has baseline unsteady gait, leg weakness from old MS symptoms -follow up with Dr. Pond (7) Hypothyroidism: Plan: TSH 5.1 takes both synthroid + liothyronine at home defer dose adjustment to the outpatient setting -resumed (8) GERD (gastroesophageal reflux disease): Plan: PPI daily (9) Pancreatic duct dilated: Plan: CT abd/pelvis with dilation of pancreatic duct - 6mm. May have been edema related to sepsis Lipase is not elevated Will ultimately need MRCP to further evaluate this, asymptomatic, can be pursued as outpatient - discussed with patient, daughter, (10) Elevated troponin: Plan: peak HS trop >1000, downtrended echo early in admission with mildly depressed LV function appreciate cardiology consultation recent outpatient stress test negative - obtained and reviewed these records from [facility] cardiology elevation of troponin consistent with demand ischemia setting of septic shock limited repeat Echo 07/18 to reassess EF, was depressed due to sepsis - EF now 55- 60%, improved (11) HFrEF (heart failure with reduced ejection fraction): Plan: EF 45-50% on echo early in admission but was septic at the time Normalized to 55-60% on 07/16 echo euvolemic with very mild leg edema (12) Acute hypoxic respiratory failure: Plan: 2nd to pneumonia see above (13) UTI (urinary tract infection): Plan: 2nd e.coli treated by antibiotics for pneumonia above (14) Acute metabolic encephalopathy: Plan: 2nd to sepsis/pneumonia/UTI/ICU psychosis/etc supportive care avoid sedatives if at all possible frequent reorientation blinds open during day, closed at night, etc -improved/resolved Plan resumed cymbalta R hilar 4.9 cm soft tissue density on chest CT - could be pneumonia or lymphadenopathy - follow up chest CT recommended in 1-2 months to ensure resolution - discussed with patient, daughter, daughter & updated at bedside 07/16, daughter 07/17 Admission and Anticipated Discharge Date Admission Date: July 11, 2023 Subjective L hand remains weak but has been improving Has chronic dry cough at home but not having THAT cough here, has the pneumonia cough still No dyspnea BP low but not lightheaded Physical Exam Physical Exam: PHYSICAL EXAMINATION Last 24h vital signs reviewed, see documentation in flowsheet General: comfortable appearing, no distress, sitting in chair HEENT: Normocephalic, atraumatic, pupils round and equal, sclerae anicteric, no conjunctival injection, moist mucus membranes Lungs: Normal respiratory effort. R base mild crackles, L clear - unchanged Heart: reg, no murmurs. No JVD Abdomen: Soft, nontender, nondistended. Bowel sounds present. Extremities: Warm, dry, well-perfused. mild lower extremity edema and resolved LUE edema. Neuro: Alert and oriented x self, family, hospital, situation, no longer confused, conversational, patrizia EOMI, face now symmetric no paresis, RUE and R cat skinner 5/5, L hand weakness present cat skinner 3-4/5 but definitely improved wrist probably 4-/5, biceps/triceps and delt 4/5. Psych: Normal affect and behavior Results & Data Results & Data Vital Signs (Past 12 Hours) Vital Signs Temp Pulse Pulse Resp BP Pulse Ox O2 Del Method 07/19/23 15:25 36.7 C 61 18 126/82 97 Room Air 07/19/23 11:31 36.5 C 62 18 127/83 93 Room Air 07/19/23 08:27 69 07/19/23 08:27 Room Air 07/19/23 07:30 36.7 C 74 18 145/86 H 92 Room Air PG Care Time/CCT Total # of Minutes Spent Total Time Spent with Patient: Total time spent is greater than 50% in coordination of care (as documented) at patient's floor/unit and/or counseling patient: Coding Level of Care Code 57175 SUB INP/OBS CARE 2/35MIN Diagnoses Ischemic stroke I63.9 Septic shock A41.9; R65.21 Atrial fibrillation with RVR I48.91 Pneumonia J18.9 Prediabetes R73.03 Multiple sclerosis G35 Hypothyroidism E03.9 GERD (gastroesophageal reflux disease) K21.9 Pancreatic duct dilated K86.89 Elevated troponin R79.89 HFrEF (heart failure with reduced ejection fraction) I50.20 Acute hypoxic respiratory failure J96.01 UTI (urinary tract infection) N39.0 Acute metabolic encephalopathy G93.41
[2023-07-20] MEDS: METOPROLOL SUCC 25MG EXT REL TAB PO SCH (08:12)
[2023-07-20] MEDS: PRESERVISION AREDS 2: NON-FORMULARY PATIENT'S OWN MED PO SCH (12:31)
[2023-07-20] MEDS ORDERED: STROKE PATIENT DISCHARGE STA (15:51)
--- NOTE | 2023-07-20 16:11 | Discharge Summary ---
Date of Service July 20, 2023 Admission HPI Per Admitting Provider Susan is a 78-year-old female with a past medical history of diabetes, autoimmune thyroiditis, C5 radiculopathy, L5 radiculopathy, multiple sclerosis stable as of 2022 and off biologic/disease modifying therapy presented to the ER with sepsis and A-fib RVR. By signout report daughter recently had the flu, patient had nausea and weakness yesterday. Very weak this morning with 1 fall and appeared ill. EMS was contacted and patient was with a heart rate over 180 suspicious for SVT versus A-fib RVR. Adenosine 6 mg and subsequent 12 mg was given by EMS in the field, underlying rhythm was shown to be A-fib RVR. She received 800 cc normal saline bolus and route to the hospital by EMS. While in the ER she is found to have a rate of [id number] consistent with A-fib RVR with hypotension. [id number] ultrasound showed no effusion/tamponade, plethoric IVC and chest x-ray showed a right-sided infiltrate. She was started on treatment for sepsis due to pneumonia. She received 2.5 L in addition to 800 cc of fluid prehospital at bolus rate which meets her AB W fluid goals of 20 to 95 cc per sepsis protocol. Random cortisol was elevated and not indicative of adrenal suppression. Patient remained hypotensive but with MAP greater than 65. Case was reviewed with the ICU, phenylephrine was started with the goal of starting amiodarone once pressures had stabilized. Due to hypoxia, respiratory distress and critical illness intubation was discussed with the family at bedside who subsequently confirmed full code in a code setting, and okay for intubation with her current level of illness. Subsequently intubated in the ER, patient did convert to sinus rhythm and amiodarone was deferred. At time of hospitalist admitting assessment patient on phenylephrine, fentanyl drip at 25, propofol at 20. Heparin drip was started. Collateral not available from patient due to critical illness and ETT in place. Principal Diagnosis Acute right thalamic stroke, embolic related to new onset atrial fibrillation with rapid ventricular response, septic shock and acute hypoxic respiratory failure due to RML pneumonia Discharge Exam PHYSICAL EXAMINATION Last 24h vital signs reviewed, see documentation in flowsheet General: comfortable appearing, no distress, sitting on EOB HEENT: Normocephalic, atraumatic, pupils round and equal, sclerae anicteric, no conjunctival injection, moist mucus membranes Lungs: Normal respiratory effort. R base mild crackles, L clear - unchanged Heart: reg, no murmurs. No JVD Abdomen: Soft, nontender, nondistended. Bowel sounds present. Extremities: Warm, dry, well-perfused. mild lower extremity edema L>R and resolved LUE edema. Neuro: Alert and oriented x self, family, hospital, situation, no longer overtly confused but a bit perseverative, conversational, patrizia EOMI, face now symmetric no paresis, RUE and R extraction operator 5/5, L hand weakness present extraction operator 3-4/5 but definitely improved wrist probably 4-/5, biceps/triceps and delt 4/5. LLE weakness jaylon dorsiflexion 3-4/5 Psych: Normal affect and behavior Discharge Data Allergies Allergy/AdvReac Type Severity Reaction Status Date / Time latex Allergy Intermediate RASH Verified 03/16/23 10:26 interferon beta-1a Allergy Mild UNKNOWN Verified 03/16/23 10:26 gabapentin Allergy Unknown unknown Verified 03/16/23 10:26 Penicillins Allergy Unknown UNKNOWN Verified 03/16/23 10:26 Gadolinium-Containing AdvReac Mild Headache Verified 07/14/23 01:53 Contrast Medi nickel AdvReac Unknown SKIN Verified 03/16/23 10:26 IRRITATION baclofen AdvReac known Verified 03/16/23 10:26 Consultations 07/11/23 09:50 ED Decision to Admit Stat 07/11/23 11:42 Consult Forest Technician Routine 07/12/23 19:18 Consult Cardiology Routine 07/15/23 18:59 Consult Neurology Routine 07/19/23 13:48 Consult Patient Services Routine Ordered Studies 07/11/23 08:09 CT abd pelvis IV con only Stat 07/11/23 08:10 CT cervical spine wo con Stat CT head/brain wo con Stat 07/15/23 10:52 MR brain wo con Urgent 07/16/23 US carotid doppler BI Routine Chest X-Ray 07/11/23 07:38 XR chest 1V portable HISTORY: Sepsis COMPARISON: Chest 06/16/2023. FINDINGS: No pneumothorax. No pleural effusions. The cardiac silhouette is mildly enlarged. There is diffuse interstitial/vascular thickening which has progressed. This favors mild congestive change. There is a hazy airspace opacity within the right midlung zone. This is new compared the prior study. Benign- appearing chondroid lesion again noted within the proximal left humerus. There is a tortuous thoracic aorta. IMPRESSION: 1. Hazy airspace opacity within the right midlung zone. This favors a pneumonia. Follow-up chest x-ray one to 2 months is recommended to ensure resolution. 2. Cardiomegaly with mild congestive change. ACT 112: Negative or not required by law. Electronically signed by: Alexey Araiza M.D. 07/11/2023 8:33 AM Abdomen/Pelvis CT 07/11/23 08:[address] WITH IV CONTRAST CT DOSE: 2346.11 mGy.cm HISTORY: fall TECHNIQUE: Multiaxial CT images of the abdomen and pelvis were performed following the use of intravenous contrast. A dose lowering technique was utilized adhering to the principles of ALARA. COMPARISON STUDY: Abdomen and pelvis CT 01/13/2020. FINDINGS: Right middle lobe airspace opacity likely representing a pneumonia. There is associated right hilar/perihilar soft tissue density best seen on image 10 measuring approximately 4.9 cm. This also favors a component of the pneumonia. Right hilar lymphadenopathy or a perihilar lesion also remain in the differential diagnosis. Mild soft tissue thickening at the bronchus intermedius is noted on image 1. This also bears watching on future examinations. Right basilar subcentimeter nodules measure up to 6 mm remain stable. Therefore, these are likely benign. No pneumoperitoneum. No pneumatosis. There is an old mild superior endplate compression deformity at T12. No acute fractures identified. Heterogeneous enhancement within the liver with periportal edema. There is associated mild gallbladder wall thickening which is likely reactive to the periportal edema. The main portal vein is patent. Normal caliber common bile duct. Dilatation of the main pancreatic duct measuring up to 6 mm. Mild peripancreatic edema is likely due to the periportal edema. An acute pancreatitis could also have a similar appearance. Therefore, recommend correlation with pancreatic enzymes. The spleen, adrenal glands, and left kidney are unremarkable. No hydronephrosis. There is a punctate stone within the right kidney. No hydronephrosis. Trace perihepatic ascites is noted. Calcified plaque within the normal caliber abdominal aorta. No retroperitoneal hematoma or lymphadenopathy. The bladder is decompressed by Hyman catheter. The uterus and bilateral adnexa are unremarkable. Colonic diverticulosis. No evidence for acute diverticulitis. Moderate fecal retention. Normal appendix. No bowel wall thickening or obstruction. IMPRESSION: 1. No acute traumatic process within the abdomen or pelvis. 2. Right middle lobe airspace opacity consistent with a pneumonia. There is also right hilar/perihilar soft tissue density which may represent a component of the pneumonia. However, 1-[address] follow-up recommended to ensure resolution and to exclude the possibility of right hilar lymphadenopathy or a perihilar lesion. 3. Heterogeneous enhancement within the liver with periportal edema. There is associated mild gallbladder wall thickening which is likely reactive to the periportal edema. 4. Dilatation of the main pancreatic duct measuring up to 6 mm. Mild peripancreatic edema is likely due to the periportal edema. An acute pancreatitis could also have a similar appearance. Therefore, recommend correlation with pancreatic enzymes. Follow-up GI consultation recommended for further evaluation of the dilated main pancreatic duct. 5. Right-sided nephrolithiasis. No hydronephrosis. 6. Additional findings as described above. ACT 112: Negative or not required by law. Electronically signed by: Alexey Araiza M.D. 07/11/2023 9:[address] 07/11/23 08:[address] DOSE: HISTORY: fall TECHNIQUE: Multiaxial CT images of the cervical spine were performed and reformatted in the sagittal and coronal plane without the use of contrast. A dose lowering technique was utilized adhering to the principles of ALARA. COMPARISON: None. FINDINGS: No acute fractures. Moderate degenerative disc disease within the cervical spine. Interlobular septal thickening within the lung apices favors mild congestive change. There is a healing left posterior fourth rib fracture. Prevertebral soft tissues and the C1-C2 interval are intact. No pneumothorax. IMPRESSION: No acute fractures within the cervical spine. ACT 112: Negative or not required by law. Electronically signed by: Alexey Araiza M.D. 07/11/2023 9:[address] 07/11/23 08:[address] DOSE: HISTORY: fall TECHNIQUE: Multiaxial CT images of the head were performed without the use of intravenous contrast. Automated exposure control was utilized for this study. A dose lowering technique was utilized adhering to the principles of ALARA. Comparison: Head CT 06/25/2023. Findings: Trace fluid again noted within the right sphenoid sinus. The mastoid air cells are clear. The calvarium and skull base are intact. There is no mass, hematoma, midline shift, acute infarct. White matter hypodensity is nonspecific but suggestive of microvascular ischemic change. The ventricles and sulci d emonstrate mild age-related involutional changes. Impression: No significant change compared to the prior study. No acute intracranial abnormality. ACT 112: Negative or not required by law. Electronically signed by: Alexey Araiza M.D. 07/11/2023 9:32 AM Chest X-Ray 07/11/23 09:49 XR chest 1V portable HISTORY: Evaluate ET tube placement. COMPARISON: Chest 07/11/2023. FINDINGS: Endotracheal tube terminates approximately 1.2 cm from the prince. No pneumothorax. Right middle lobe airspace opacity persists. There is interstitial/vascular thickening consistent with mild congestive change. The heart remains mildly enlarged. No pleural effusions. Benign cartilaginous lesion again noted within the proximal left humerus. IMPRESSION: 1. Endotracheal tube terminates approximately 1.2 cm from the prince. 2. Right middle lobe airspace opacity is again noted. Recommend follow-up to resolution. 3. Pulmonary vascular congestion. ACT 112: Negative or not required by law. Electronically signed by: Alexey Araiza M.D. 07/11/2023 10:11 AM KUB X-Ray 07/11/23 11:51 KUB HISTORY: OG placement COMPARISON: KUB 03/17/2016. FINDINGS: The bowel gas pattern is unremarkable. There are no dilated loops of small bowel to suggest an obstruction. Bilateral nephrolithiasis. No ureteral calculi. No pneumoperitoneum or pneumatosis. Moderate fecal retention. The nasogastric tube terminates in the distal stomach. IMPRESSION: 1. Nonspecific bowel gas pattern. 2. The nasogastric tube terminates in the distal stomach. ACT 112: Negative or not required by law. Electronically signed by: Alexey Araiza M.D. 07/11/2023 12:05 PM Chest X-Ray 07/12/23 05:15 SINGLE VIEW CHEST CLINICAL HISTORY: Respiratory failure. FINDINGS: An AP, portable, upright chest radiograph is compared to study dated 07/11/2023. An endotracheal tube is unchanged in position. An enteric tube has been placed. The tip projects below the diaphragm and is not visualized. The heart is mildly enlarged noting atherosclerotic calcification of the thoracic aorta. The pulmonary vasculature is noncongested. Chronic interstitial thickening similar to previous. There is bibasilar airspace consolidation, right greater than left. Small pleural effusions are noted. No pneumothorax is seen. The skeletal structures are osteopenic. The bony thorax is grossly intact. A benign-appearing chondroid lesion is again seen in the left proximal humerus. IMPRESSION: 1. Lines and tubes as above. 2. Bibasilar airspace consolidation, right greater than left. This is typical for pneumonia and similar to yesterday. Radiographic follow-up to resolution is recommended. 3. Small pleural effusions. ACT 112: Negative or not required by law. Electronically signed by: Ian Hidalgo M.D. 07/12/2023 7:24 AM Chest X-Ray 07/13/23 05:15 XR chest 1V portable CLINICAL HISTORY: while intubated- eval lines/tubes/lung sun COMPARISON STUDY: Chest radiograph July 12, 2023. FINDINGS: Tip of the endotracheal tube is 1.9 cm above the prince. Tip of nasogastric tube is below lower aspect of this image but at least within the body of the stomach. Bibasilar airspace opacities, right greater than left, persist. There are small bilateral pleural effusions. There is no pneumothorax. There is pulmonary vascular congestion. Sclerotic lesion within the proximal left humerus remains unchanged from earlier exams. IMPRESSION: 1. Satisfactory positioning of the endotracheal and nasogastric tubes. 2. Persistent bibasilar opacities suggestive of pneumonia. 3. Small bilateral pleural effusions. 4. Pulmonary vascular congestion. ACT 112: Negative or not required by law. Electronically signed by: Juan Carlos Martin M.D. 07/13/2023 7:05 AM Brain MRI 07/15/23 10:52 MRI OF THE BRAIN WITHOUT IV CONTRAST CLINICAL HISTORY: Left upper extremity weakness COMPARISON STUDY: CT of the brain dated 07/11/2023. MRI of the brain dated 09/02/2021. TECHNIQUE: MRI of the brain was performed utilizing various T1 and T2-weighted sequences in the axial, sagittal, and coronal planes. IV contrast was not administered for this examination. The examination was performed using the multiple sclerosis protocol. FINDINGS: Brain parenchyma: There is a 7 mm focus of restricted diffusion centered in the right thalamus consistent with an acute to subacute lacunar infarct. No additional foci of restricted diffusion are seen. There is no hemorrhage or mass effect. There is age-related involutional change noting moderate confluent subcortical and periventricular microangiopathic disease. No extra-axial fluid collection is seen. The cerebellar tonsils are normal in configuration. Ventricles, sulci, and cisterns: Prominent secondary to involutional change. Pituitary and sella: Unremarkable. Intracranial vasculature: Normal flow voids are maintained at the skull base. Orbits: The bony orbits are grossly intact. Orbital contents are normal in appearance noting bilateral ocular lens implants. Sinuses and mastoids: Clear. Calvarium: Unremarkable. Cervical cord: Partially visualized cervical spinal cord is normal in morphology and signal intensity. IMPRESSION: 1. There is an acute to subacute subcentimeter lacunar infarct centered in the right thalamus. 2. Additional foci of restricted diffusion are identified. 3. There is no hemorrhage or mass effect. ACT 112: Negative or not required by law. Electronically signed by: Ian Hidalgo M.D. 07/15/2023 6:35 PM Carotid Doppler Study 07/16/23 00:00 ULTRASOUND OF THE CAROTID ARTERIES CLINICAL HISTORY: Stroke. COMPARISON STUDY: No priors. TECHNIQUE: Real-time, grayscale, and color Doppler sonography of the carotid arteries is performed. Images are reviewed in the transverse and longitudinal p lanes. FINDINGS: The carotid arteries are patent bilaterally and demonstrate antegrade flow. There is No significant atherosclerotic plaque identified. Normal doppler arterial waveforms are seen throughout. Velocity measurements are listed below. Common carotid peak systolic velocity (cm/sec): RIGHT: 69 LEFT: 67 ICA proximal peak systolic velocity (cm/sec): RIGHT: 38 LEFT: 36 ICA mid peak systolic velocity (cm/sec): RIGHT: 43 LEFT: 75 ICA distal peak systolic velocity (cm/sec): RIGHT: 47 LEFT: 63 ICA/CC peak systolic ratio: RIGHT: 0.7 LEFT: 1.1 Antegrade flow was shown in the vertebral arteries. The external carotid arteries are patent. IMPRESSION: 1. There is no sonographic evidence of hemodynamically significant stenosis in the right or left carotid arterial system. 2. Antegrade flow is shown in the vertebral arteries. ACT 112: Negative or not required by law. Electronically signed by: Ian Hidalgo M.D. 07/16/2023 7:48 AM Hospital Course (1) Ischemic stroke: 78 y/o woman with history of gait instability due to MS but normally independent presented with septic shock and acute hypoxic respiratory failure due to RML pneumonia required intubation and ICU admission with pressors. Treated with broad spectrum IV antibiotics and shock resolved, extubated 07/12. Was also in new onset rapid atrial fibrillation at time of admission started on heparin drip and rate control. Acute metabolic encephalopathy improved in 48h following extubation to allow participatory physical exam and found to have L facial droop, LUE weakness especially in the hand/wrist, possible LLE weakness. Brain MRI obtained at that time revealed acute right thalamic ischemic stroke that matched her L sided weakness. Completed course of antibiotics in hospital, mental status has continued to improve, stroke symptoms improving continues to have LUE weakness and increased gait dysfunction, now walking short distances with walker with PT. Ischemic stroke L thalamic 7mm infarct on MRI 07/14 Was not a candidate for TPA because onset of symptoms unknown and also was on a heparin drip already, also symptoms relatively mild -appreciate neurology consult 07/15. Presumed embolic stroke related to atrial fibrillation -carotid duplex negative. Had echo earlier this admission -changed heparin to apixaban - counseled patient and family about bleeding risks and benefits over last several days -neurologist did not recommend concurrent aspirin because of embolic mechanism of stroke and high bleeding risk with ASA + anticoagulant -LDL is low and nearly at goal <70, continue moderate dose atorvastatin -follow up with her neurologist Dr. Pond (2) Septic shock: 2nd to right-sided pneumonia, treated with IV antibiotics initially required pressors in ICU resolved blood cultures negative sputum cx negative -initially treated with cefepime/levaquin then azithro, changed to ertapenem completed 4 days of this, deescalated to oral cefdinir completed 7-8 day course on 07/18 -MRSA nasal and legionella urine Ag negative -resolving - on room air and not coughing very much -follow up chest CT recommended by radiologist in 1-2 months (3) Atrial fibrillation with RVR: Was in rapid afib (new diagnosis) at time of presentation to the ED In/out of afib earlier this admission, back in NSR past 3 days -cardiology consulted -was on heparin IV from admission to 07/15, changed to apixaban 07/15 -continue metoprolol succinate but reduced dose from 200 to 175 daily because BP was soft. Did require robust dose of metoprolol for rate control while in afib (4) Pneumonia: Acute hypoxic respiratory failure secondary to RML pneumonia RML on admission imaging likely there is left sided basilar pneumonia as well pneumonia led to acute hypoxic respiratory failure requiring intubation/mechanical ventilation successful extubation 07/12 Abx as above, resolved (5) Prediabetes: A1c 5.8% (6) Multiple sclerosis: See above No recent MS symptoms or flares per family. Was last on Copaxone in 2019. Current L hand weakness fits clinical picture of R thalamic CVA rather than MS flare Has baseline unsteady gait, leg weakness from old MS symptoms, currently worsened gait instability because of critical illness and possible L leg weakness from stroke -follow up with Dr. Pond (7) Hypothyroidism: TSH 5.1 takes both synthroid + liothyronine at home defer dose adjustment to the outpatient setting -resumed (8) GERD (gastroesophageal reflux disease): PPI daily (9) Pancreatic duct dilated: CT abd/pelvis with dilation of pancreatic duct - 6mm. May have been edema related to sepsis Lipase is not elevated Will ultimately need MRCP to further evaluate this, asymptomatic, can be pursued as outpatient - discussed with patient, daughter, (10) Elevated troponin: peak HS trop >1000, downtrended echo early in admission with mildly depressed LV function appreciate cardiology consultation recent outpatient stress test negative - obtained and reviewed these records from [facility] cardiology elevation of troponin consistent with demand ischemia setting of septic shock limited repeat Echo 07/18 to reassess EF, was depressed due to sepsis - EF now 55- 60%, improved (11) HFrEF (heart failure with reduced ejection fraction): EF 45-50% on echo early in admission but was septic at the time Normalized to 55-60% on 07/16 echo euvolemic with mild leg edema, consider diuretic if persistent (12) Acute hypoxic respiratory failure: 2nd to pneumonia see above (13) UTI (urinary tract infection): 2nd e.coli treated by antibiotics for pneumonia above (14) Acute metabolic encephalopathy: 2nd to sepsis/pneumonia/UTI/ICU psychosis/etc supportive care avoid sedatives if at all possible frequent reorientation blinds open during day, closed at night, etc -improved oriented x4 but continues to have some cognitive dysfunction Plan resumed cymbalta R hilar 4.9 cm soft tissue density on chest CT - could be pneumonia or lymphadenopathy - follow up chest CT recommended in 1-2 months to ensure resolution - discussed with patient, daughter, daughter & updated at bedside 07/16, 07/18, daughter 07/17 Total Time Total Time Spent Total Time Spent (In Minutes): I personally spent: today on clinical care activities including: reviewing chart notes and vital signs discussion with [id number] for insurance discussion with patient care representative examining and counseling the patient counseling the patient's family writing orders, discharge instructions documentation Discharge Plan Discharge Items Patient Disposition: Transfer Inpatient Rehab Fac Reason For Visit: SEPSIS 05/15 PNA, AFIB RVR Discharge Diagnosis: Acute ischemic stroke, Acute hypoxic respiratory failure due to RML pneumonia, new onset atrial fibrillation Activity: Per Instructions section Weightbearing: Full weightbearing Non-emergency contact: Primary Care Provider Call non-emergency contact if: you have any medication questions and your symptoms worsen Follow-up/Referrals: Ganesh De La Fuente, [Primary Care Provider] - Diet: Low Sodium (2gm) Diet Texture: Easy to Chew Addtl Attending Provider Instructions: PT, OT, ST evaluate and treat - R thalamic stroke and acute metabolic encephalopathy, baseline gait instability due to multiple sclerosis Monitor BP and heart rate on metoprolol - dose reduced 07/19 from 200 to 175 mg for borderline hypotension, however, needed substantial dose for rate control when in afib Monitor edema and weights, consider gentle diuretic if leg edema not improving Completed course of antibiotics for pneumonia and UTI on 07/18 Please schedule follow up with primary care - needs repeat chest CT in 1-2 months to follow up consolidations and need to consider outpatient MRCP to follow up pancreas duct dilation on CT, possibly just related to sepsis We discussed the risks and benefits of anticoagulation, including the risks of gastrointestinal bleeding - seek medical attention if you have black/tarry or bloody stool There is also a very small but real risk of intracranial hemorrhage - related to head trauma or bleeding-type stroke, that can be life threatening. Call 911 if you have altered mental status or symptoms of stroke (weakness or numbness of face/arm/leg, trouble speaking or understanding, trouble with walking/balance Addtl Knitting Machine Mechanic Provider Instructions: Risk Factors for Stroke: You can reduce your chances of stroke by working with your medical provider to adopt a healthy lifestyle. Some specific ways to lower your chance of stroke are: * If you are a smoker, now is the time to stop smoking cigarettes * If you are diabetic, improve the control of your blood sugars * Avoid excessive amounts of alcohol * Control high blood pressure * Lose weight if you are overweight * Be sure to lead an active lifestyle * Eat a healthy diet low in salt, cholesterol and fat You should know about other risk factors for stroke that you are unable to control. These include: * Age 55 years or older * Male gender * Certain racial groups: , or / * Family History of Stroke, Mini stroke or Heart Attack * Sickle Cell Disease Follow Up: It is important for you to keep your follow up appointments with your medical provider. Who to Call and When: Medical Emergencies: Call 911 immediately if you experience any of the following warning signs and symptoms of Stroke: * Sudden numbness or weakness of the face, arm or leg, especially on one side of the body * Sudden confusion, trouble speaking or understanding * Sudden trouble seeing in one or both eyes * Sudden trouble walking, dizziness, loss of balance or coordination * Sudden severe headache with no cause Do not delay calling 911 if you experience any warning signs or symptoms of a stroke. Delay in seeking medical attention may affect what treatments can be given to you. . Pending Studies at Discharge: No Stand-Alone Forms: My [facility], Medications to Prevent Stroke Skilled Items Patient informed of condition?: Yes DNR: No Discharge Level of Care: Acute rehab Communicable Disease: No Discharge Prognosis: Improving Lines: None Urinary Catheter: No Medications and DC Order Prescriptions: New acetaminophen 325 mg Tablet 650 mg PO Q6H PRNQty: 0 0RF atorvastatin 40 mg Tablet 40 mg PO QAM Qty: 0 0RF metoprolol succinate 25 mg Tablet Extended Release 24 Hr 175 mg PO QAM Qty: 0 0RF lidocaine 5 % Adhesive Patch,Medicated 1 patch transdermal HS Qty: 0 0RF Eliquis 5 mg Tablet 5 mg PO BID Qty: 0 0RF Continued cholecalciferol (vitamin D3) 50 mcg (2,000 unit) capsule 50 mcg PO DAILY duloxetine 30 mg capsule,delayed release(DR/EC) 30 mg PO HS 90 Days Qty: 90 1RF Rx Instructions: take along with 60mg capsule to equal 90mg duloxetine 60 mg capsule,delayed release(DR/EC) 60 mg PO HS Qty: 90 1RF Rx Instructions: take along with 30mg capsule to equal 90mg levothyroxine 50 mcg tablet 50 mcg PO DAILY ferrous sulfate 325 mg (65 mg iron) tablet 325 mg PO DAILY omeprazole 40 mg capsule,delayed release(DR/EC) 40 mg PO DAILY melatonin 3 mg tablet 6 mg PO HS liothyronine [Cytomel] 5 mcg tablet 5 mcg PO QAM Qty: 90 PreserVision AREDS [id number] capsule 1 cap PO DAILY calcium carbonate-vitamin D3 500 mg(1,250mg) -200 unit tablet 1 tab PO DAILY multivitamin [Daily Multi-Vitamin] tablet 1 tab PO DAILY armodafinil [Nuvigil] 250 mg tablet 250 mg PO QAM Qty: 90 1RF famotidine 40 mg tablet 0 mg PO UD Rx Instructions: unable to verify 07/11/23 Discontinued naproxen 500 mg tablet 500 mg PO BID PRN (Reason: pain) 90 Days Qty: 180 1RF meloxicam 15 mg tablet 0 mg PO UD Rx Instructions: unable to verify 07/11/23 Discharge Orders: Discharge Order (Routine); Ordered 07/20/23 Ordered By: Randee Jaimes Admission Data Admit Date/Time: 07/11/23 10:12 Attending Provider: Randee Jaimes Admit Provider: Bora Bernabe Primary Care Provider: Ganesh De La Fuente Other Providers: [facility]; [facility]; Bora Bernabe; Steve Wagner; Reddy Rutledge; Iban Barger; Billy Painter; Brian Centeno; William Mike; Mohinder Milligan Jr; Mario Mullen; Dilma Tubbs; Lana Jeronimo; Eros Olvera; Eros Mccartney; Carson Samano; Maria Del Rosario Segundo; Jonn Farooq; Rere Welsh; Solis Manzano; Riley Carrera; Edison Hogan; Walt Joyce; Max Hoover; Cabrera Pond; Jada Lopez; Berna Hoffman; Anitha Brand; David Swanson Coding Level of Care Code 44847 INP/OBS DISCH >30 MIN Diagnoses Ischemic stroke I63.9 Septic shock A41.9; R65.21 Atrial fibrillation with RVR I48.91 Pneumonia J18.9 Prediabetes R73.03 Multiple sclerosis G35 Hypothyroidism E03.9 GERD (gastroesophageal reflux disease) K21.9 Pancreatic duct dilated K86.89 Elevated troponin R79.89 HFrEF (heart failure with reduced ejection fraction) I50.20 Acute hypoxic respiratory failure J96.01 UTI (urinary tract infection) N39.0 Acute metabolic encephalopathy G93.41
--- NOTE | 2023-07-28 08:05 | Coding Query ---
CODING QUERY To promote full compliance with coding requirements relating to patient care, provider participation is requested in all cases of professional fee coder uncertainty. Please assist us with the question(s) below: Please clarify the meaning of CARLO. CARLO is not a valid abbreviation. Thank you. ( X ) Acute Kidney Injury ( ) Acute Kidney Insufficiency ( ) Other (Specify): Principal Diagnosis: "that condition established after study, to be chiefly responsible for occasioning the admission of the patient to the hospital for care." Co-Existing Principal Diagnosis: "when two or more diagnoses equally meet the criteria for principal diagnosis as determined by the circumstances of admission, diagnostic work up, and/or therapy provided, and the Alphabetic Index, Tabular List, or another coding guideline does not provide sequencing direction, any one of the diagnoses may be sequenced first." "When the physician has documented what appears to be a current diagnosis in the body of the record, but has not included the diagnosis in the final diagnostic statement, the physician should be asked whether the diagnosis should be added." (Source [facility] 2 QTR90. p3-4) OLIVA
== END 2023-07-20 18:40 | DRG 871 ==
LOC: ED 07:36 → SUATTDRO 10:12 → 1E 10:12 → 2S 07-17 17:54 → 2W 07-19 22:41

== ENCOUNTER 2023-08-05 04:55 | Inpatient (IN) ==
[2023-08-05] MEDS: SODIUM CHLORIDE 0.9% 500 ML IV ONE ×2 (05:20→08:00)
[2023-08-05 05:47] LABS: Albumin Level 3.4 gm/dl (3.4-5.0); BUN Creatinine Ratio 23.2 (10-20); Bilirubin,Total 0.3 mg/dl (0.2-1.0); Calcium 9.6 mg/dl (8.6-10.3); Creatinine Clr Calc Pharmacy 46.3 ml/min; Est GFR (African American) 63.7 ml/min; Globulin 3.5 gm/dl (2.5-4.0); Magnesium 2.1 mg/dl (1.7-2.4); Potassium 4.2 mmol/L (3.5-5.1); Total Protein 6.9 gm/dl (6.0-8.3)
[2023-08-05 05:48] LABS: Basophils # (auto) 0.06 K/uL (0.00-0.20); Basophils % (auto) 0.8 %; Eosinophils # (auto) 0.19 K/uL (0.00-0.50); Eosinophils % (auto) 2.4 %; Hematocrit (blood only) 45.7 % (37.0-47.0); Hemoglobin 14.9 g/dl (12.0-16.0); Immature Granulocytes # (auto) 0.03 K/uL (0.01-0.20); Immature Granulocytes % (auto) 0.4 %; Lymphocytes # (auto) 2.69 K/uL (1.20-3.40); Lymphocytes % (auto) 34.3 %; Mean Corpuscular Hemoglobin 31.4 pg (25.0-34.0); Mean Corpuscular Hgb Conc 32.6 g/dL (32.0-36.0); Mean Corpuscular Volume 96.2 fL (80.0-100.0); Mean Platelet Volume 9.1 fL (9.4-12.4); Monocytes # (auto) 1.01 K/uL (0.11-0.59); Monocytes % (auto) 12.9 %; Neutrophils # (auto) 3.87 K/uL (1.40-6.50); Neutrophils % (auto) 49.2 %; Platelet Count 786 K/uL (130-400); RDW Coefficient of Variation 13.8 % (11.5-14.5); RDW Standard Deviation 49.2 fL (36.4-46.3); Red Blood Count 4.75 M/uL (4.20-5.40); White Blood Count 7.85 K/ul (4.8-10.8)
[2023-08-05 05:53] LABS: Troponin I High Sensitivity 7.2 pg/ml (0-14)
[2023-08-05] MEDS: SODIUM CHLORIDE 0.9% 250 ML IV ONE (06:01)
[2023-08-05 06:02] LABS: Thyroid Stimulating Hormone 1.742 uIu/ml (0.300-4.500)
[2023-08-05] MEDS: ADENOSINE IV SOLN 3 MG/ML 2 ML VIAL IV ONE ×2 (06:30→07:06)
--- NOTE | 2023-08-05 06:37 | XRay Report ---
XR chest 1V portable CLINICAL HISTORY: Dysrhythmia. COMPARISON STUDY: Chest radiograph July 27, 2023. FINDINGS: A chondroid lesion within the proximal left humerus is unchanged since radiographs of October 16, 2015. This likely reflects an enchondroma. There is no pneumothorax. A small to moderate right ple ural effusion has decreased in size since prior exam. Right lower lung consolidation is present. Aera tion has slightly improved since prior exam. Cardiomediastinal silhouette is stable. No evidence for overt pulmonary edema. IMPRESSION: 1. Right lower lung opacity which could reflect pneumonia or atelectasis. Aeration has improved since prior chest radiograph. Radiographic follow up to ensure resolution is recommended. 2. Small to moderate right pleural effusion, decreased in size since prior exam. ACT 112: Negative or not required by law. Electronically signed by: Juan Carlos Martin M.D. 08/05/2023 6:35 AM
[2023-08-05] MEDS: MIDAZOLAM HCL 1 MG/ML 2ML VIAL ONE (06:40)
[2023-08-05] MEDS: fentaNYL citrate PF 100 MCG/2 ML VIAL ONE (06:42)
[2023-08-05 06:43] LABS: Adenovirus PCR Not Detected (NotDetected); Bordetella parapertussis PCR Not Detected (NotDetected); Bordetella pertussis PCR Not Detected (NotDetected); Chlamydia pneumoniae PCR Not Detected (NotDetected); Coronavirus 229E PCR Not Detected (NotDetected); Coronavirus CoV-2 (COVID19)PCR Not Detected (NotDetected); Coronavirus HKU1 PCR Not Detected (NotDetected); Coronavirus NL63 PCR Not Detected (NotDetected); Coronavirus OC43PCR Not Detected (NotDetected); Human Metapneumovirus PCR Not Detected (NotDetected); Influenza A PCR Not Detected (NotDetected); Influenza B PCR Not Detected (NotDetected); Mycoplasma pneumoniae PCR Not Detected (NotDetected); Parainfluenza Virus 1 PCR Not Detected (NotDetected); Parainfluenza Virus 2 PCR Not Detected (NotDetected); Parainfluenza Virus 3 PCR Not Detected (NotDetected); Parainfluenza Virus 4 PCR Not Detected (NotDetected); Respiratory Syncytial VirusPCR Not Detected (NotDetected); Rhinovirus/Enterovirus PCR Not Detected (NotDetected)
[2023-08-05] MEDS: ADENOSINE IV SOLN 3 MG/ML 2 ML VIAL IV STA (07:06)
[2023-08-05] MEDS: MIDAZOLAM HCL 1 MG/ML 2ML VIAL IV STA (07:07)
[2023-08-05] MEDS: fentaNYL citrate PF 100 MCG/2 ML VIAL IV STA (07:07)
--- NOTE | 2023-08-05 07:28 | Emergency Department Note ---
Impression & Plan Atrial fibrillation with rapid ventricular response, Acute hypotension Admit to the [facility] ED Provider Note NAME: MICHAELA LUCERO AGE: 78 SEX: Female INFORMANT: Patient ED PROVIDER(S): Estela Andrew DO CHIEF COMPLAINT: Palpitations and shortness of breath PLAN: Disposition: Admit to the [facility] MEDICAL DECISION MAKING: This is a 78-year-old female patient who presents to the emergency department after awakening from sleep feeling extremely weak and short of breath. Patient was discharged earlier today from [facility]. She had been hospitalized there after being discharged from [facility] from admission from sepsis secondary to pneumonia, stroke and A-fib. Upon arrival here in the emergency department today, the patient was in atrial fibrillation with rapid ventricular response. O2 saturations were stable. Chest x-ray did show improvement of the right lower lung pleural effusion. There was possible remaining opacity in the right lower lobe. Patient was initially borderline hypotensive and appeared quite dehydrated on physical exam. She was bolused with 500 cc of saline and heart rate seem to come down slightly and blood pressure only went up slightly. She was given an additional 250 cc saline bolus to try and improve her blood pressure even more but unfortunately it continues to drop. At that point the decision was made to electrically cardiovert her. Patient was premedicated with IV Versed and successfully cardioverted with 150 J of synchronized cardioversion. She went into a normal sinus rhythm at a rate of 84. However, the patient remained hypotensive with blood pressures in the 80s and 90s systolically. I did discuss the case with Dr. Greenwood who had seen the patient in the past. Patient was given an additional 500 cc bolus of saline and the blood pressure did slowly rise. Care/management discussed with: [facility] Hospitalist and cardiology Triage Nursing notes: Reviewed and agree with them. Vital Signs: reviewed and remarkable for tachycardia and hypotension Additional History obtained from: Patient's and daughter Prior/ Outside/ External records reviewed: I did review the records from her lengthy admission to the hospital from 2 weeks ago. Differential Diagnosis: Recurrent sepsis, cardiac dysrhythmia, cardiac ischemia, electrolyte abnormality Diagnostics, independently interpreted by me: ECG: A-fib with RVR at a rate of 181 Repeat ECG: Normal sinus rhythm at a rate of [address] segment elevation or signs of ischemia. There is no ectopy. Cardiac Monitoring: A-fib with RVR at a rate of 160 Imaging studies: Portable chest x-ray-as per my independent interpretation- improvement of right lower lung pleural effusion; remaining opacity in the right lower lobe. HPI: 78 year old Female arrives for evaluation of weakness and shortness of breath. Patient awoke from sleep suddenly with weakness and shortness of breath. Patient was discharged home from [facility] earlier today after a prolonged stay following discharge from the hospital where she had been admitted for sepsis following a right middle lobe pneumonia, right thalamic stroke, and an episode of atrial fibrillation with rapid ventricular response. Family does admit that once the patient arrived home earlier today from the rehab facility, she did sleep most of the day and had very little oral intake. PAST MEDICAL HISTORY: See Below, PAST SURGICAL HISTORY: See Below, SOCIAL HISTORY: See Below, HOME MEDICATIONS: See list ALLERGIES: See list VITALS: See Below PHYSICAL EXAMINATION: HEENT: Head - normocephalic and atraumatic Pupils are equal, round, and reactive to light. Extraocular eye muscles are intact, and sclera are anicteric. Nose - moist nasal mucosa without discharge. Mouth - moist buccal mucosa. Oropharynx is nonerythematous and there is no tonsillar exudate or edema noted. Neck: Supple; no JVD, nuchal rigidity, cervical lymphadenopathy, or auscultated bruits. Heart: Tachycardic rate and irregularly irregular rhythm. There is a normal S1 and S2 with no murmurs, clicks, or gallops appreciated. Lungs: Clear to auscultation bilaterally with no wheezes, rales, or rhonchi. Abdomen: Soft, completely nontender, nondistended, with good bowel sounds. There are no palpable pulsatile masses or hepatosplenomegaly. There is no guarding, rigidity, or rebound noted. Extremities: No evidence of cyanosis, clubbing, or edema. There are easily palpable peripheral pulses. Skin: Pale, warm and dry with good turgor and no rashes. Emergency department course: The patient was quickly evaluated in room B-10. A complete history and physical was performed. Previous electronic medical records were reviewed. IV lock was initiated and labs were drawn as above. Portable chest x-ray was performed. An order was placed for continuous cardiac monitoring. Patient was in atrial fibrillation with a rapid ventricular response at a rate of 160. Portable chest x-ray was obtained. Patient was bolused with 500 cc of normal saline solution. Patient was evaluated multiple times as her blood pressure was low. She was given another 250 cc bolus of saline trying to support her blood pressure she did appear dehydrated. I reviewed laboratory studies with the family. End-tidal CO2 was placed on the patient Patient's blood pressure continued to drop and patient required synchronized cardioversion. She was quickly premedicated with 2.5 mg of IV Versed. Nursing staff quickly assembled with the patient and the appropriate equipment including suction and [id number]. Cardioversion was attempted with 100 J and was unsuccessful. Repeat blood pressure was noted to be 112 systolically. The patient was given 50 mcg of IV fentanyl. A subsequent attempt was made with 150 J and synchronized cardioversion was attempted again and was successful in converting the patient to a normal sinus rhythm. Patient was placed on an oxime mask to support her oxygen saturation for some time following the cardioversion. She also received an additional 500 cc of normal saline solution to support her blood pressure. I discussed the case with the [facility] Hospitalist as well as with cardiology. Patient slowly woke from her sedation and had no complaints. I have personally spent greater than 125 minutes of critical care time in the direct management of this patient. This includes bedside care, interpretation of diagnostic studies, and testing, discussion with consultants, patient, and family members, and other required patient management activities. This 125minutes is in excess of all separately billable procedures. Past Med/Surg History Medical History (Updated 08/06/23 @ 08:18 by Estela Andrew DO) Septic shock Ischemic stroke GERD (gastroesophageal reflux disease) Osteoarthritis Degenerative disc disease Chronic back pain Compression fracture currently in a back brace --> from an accident 12/2019. Migraine Cervical disc disease Macular degeneration Multiple sclerosis H/O Rishi thyroiditis Surgical History (Updated 07/26/23 @ 00:09 by Juvencio Franco) History of section S/P ear surgery Left ear - zygomatic arch surgery History of colonoscopy H/O hand surgery right hand H/O foot surgery bilateral Family History Father Colon cancer Mother Dementia Aunt Breast cancer Lung cancer Other No family history of adverse response to anesthesia Social History Smoking Status: Never smoker Second Hand Exposure: No; Do You Dip or Chew Tobacco: No; Hx Alcohol Use: No Hx Substance Use: No Preferred Language: Kazakh Communication Ability: Effective Visual Impairment: No Limitations Hearing Ability: Normal [employer]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 Beliefs That Will Affect Care: None marital status: Current Living Situation: Spouse current occupational status: retired Feels Safe at Home: Yes Assistive Devices: Glasses, Hearing Aid - Bilateral and Walker Allergies Allergies Allergy/AdvReac Type Severity Reaction Status Date / Time latex Allergy Intermediate RASH Verified 03/16/23 10:26 interferon beta-1a Allergy Mild UNKNOWN Verified 03/16/23 10:26 gabapentin Allergy Unknown unknown Verified 03/16/23 10:26 Penicillins Allergy Unknown UNKNOWN Verified 03/16/23 10:26 Gadolinium-Containing AdvReac Mild Headache Verified 07/14/23 01:53 Contrast Medi nickel AdvReac Unknown SKIN Verified 03/16/23 10:26 IRRITATION baclofen AdvReac known Verified 03/16/23 10:26 Home Meds Home Medications Medication Instructions Recorded Confirmed calcium carbonate 500 mg-vitamin 1 tab PO DAILY 12/03/18 08/05/23 D3 5 mcg (200 unit) tablet liothyronine 5 mcg tablet (Cytomel) 5 mcg PO QAM #90 tabs 12/03/18 08/05/23 melatonin 3 mg tablet 6 mg PO HS 12/03/18 08/05/23 multivitamin (Daily Multi-Vitamin 1 tab PO DAILY 12/03/18 08/05/23 tablet) vitamins A,C,P-ovbu-kqdatq 4,296 1 cap PO DAILY 12/03/18 08/05/23 mcg-226 mg-90 mg capsule (PreserVision AREDS) cholecalciferol (vitamin D3) 50 50 mcg PO DAILY 02/05/21 08/05/23 mcg (2,000 unit) capsule ferrous sulfate 325 mg (65 mg 325 mg PO DAILY 10/11/21 08/05/23 iron) tablet levothyroxine 50 mcg tablet 50 mcg PO DAILY 10/11/21 08/05/23 omeprazole 40 mg capsule,delayed 40 mg PO DAILY 03/16/23 08/05/23 release famotidine 40 mg tablet 0 mg PO UD 07/11/23 08/05/23 Previous Rx's Medication Instructions Recorded duloxetine 30 mg capsule,delayed 30 mg PO HS 90 days #90 caps 04/14/23 release duloxetine 60 mg capsule,delayed 60 mg PO HS #90 caps 04/14/23 release armodafinil 250 mg tablet (Nuvigil) 250 mg PO QAM #90 tabs 05/15/23 acetaminophen 325 mg tablet 650 mg (2 x 325 mg) PO Q6H PRN #0 07/20/23 tabs apixaban 5 mg tablet (Eliquis) 5 mg PO BID #0 tabs 07/20/23 atorvastatin 40 mg tablet 40 mg PO QAM #0 tabs 07/20/23 lidocaine 5 % topical patch 1 patch transdermal HS #0 ea 07/20/23 metoprolol succinate 25 mg 175 mg (7 x 25 mg) PO QAM #0 tabs 07/20/23 tablet,extended release 24 hr Results & Data (ED) Vital Signs Vital Signs - 24 hr 08/05/23 04:55 08/05/23 04:58 08/05/23 05:06 Temperature 36.5 C Temperature Source Oral Pulse Rate 92 H 197 H Pulse Rate [Apical] Pulse Rate from SpO2 Sensor Pulse Rhythm [Apical] Pulse Strength [Apical] Respiratory Rate 20 Respiratory Effort / Characteristics Non-Labored Spontaneous Respiratory Depth Normal Respiratory Pattern Blood Pressure 85/61 L Blood Pressure [Right Arm] Blood Pressure Mean 69 Blood Pressure Mean [Right Arm] Blood Pressure Position [Right Arm] Pulse Oximetry 92 94 Oxygen Delivery Method Nasal Cannula Room Air Oxygen Flow Rate Sepsis Recent Fever Within 48 Hours No Sepsis New/Unexplained Change in Mental Status N/A Sepsis Action Taken by Nursing No Action Required Oxygen Flow Rate - Titration 2 Pulse Oximetry Post Tiitration 96 08/05/23 05:06 08/05/23 05:08 08/05/23 05:08 Temperature Temperature Source Pulse Rate 169 H 190 H Pulse Rate [Apical] Pulse Rate from SpO2 Sensor 81 Pulse Rhythm [Apical] Pulse Strength [Apical] Respiratory Rate 29 H 21 Respiratory Effort / Characteristics Respiratory Depth Respiratory Pattern Blood Pressure 111/60 Blood Pressure [Right Arm] Blood Pressure Mean 100 Blood Pressure Mean [Right Arm] Blood Pressure Position [Right Arm] Pulse Oximetry 95 Oxygen Delivery Method Oxygen Flow Rate Sepsis Recent Fever Within 48 Hours Sepsis New/Unexplained Change in Mental Status Sepsis Action Taken by Nursing Oxygen Flow Rate - Titration Pulse Oximetry Post Tiitration 08/05/23 05:10 08/05/23 05:18 08/05/23 05:19 Temperature Temperature Source Pulse Rate 185 H 182 H Pulse Rate [Apical] Pulse Rate from SpO2 Sensor 78 102 H Pulse Rhythm [Apical] Pulse Strength [Apical] Respiratory Rate 33 H 23 Respiratory Effort / Characteristics Respiratory Depth Respiratory Pattern Blood Pressure 95/57 L Blood Pressure [Right Arm] Blood Pressure Mean 81 Blood Pressure Mean [Right Arm] Blood Pressure Position [Right Arm] Pulse Oximetry 92 98 Oxygen Delivery Method Oxygen Flow Rate Sepsis Recent Fever Within 48 Hours Sepsis New/Unexplained Change in Mental Status Sepsis Action Taken by Nursing Oxygen Flow Rate - Titration Pulse Oximetry Post Tiitration 08/05/23 05:19 08/05/23 05:20 08/05/23 05:26 Temperature Temperature Source Pulse Rate 171 H 159 H 153 H Pulse Rate [Apical] Pulse Rate from SpO2 Sensor 100 H 103 H 90 Pulse Rhythm [Apical] Pulse Strength [Apical] Respiratory Rate 28 H 31 H 29 H Respiratory Effort / Characteristics Respiratory Depth Respiratory Pattern Blood Pressure Blood Pressure [Right Arm] Blood Pressure Mean Blood Pressure Mean [Right Arm] Blood Pressure Position [Right Arm] Pulse Oximetry 98 97 97 Oxygen Delivery Method Oxygen Flow Rate Sepsis Recent Fever Within 48 Hours Sepsis New/Unexplained Change in Mental Status Sepsis Action Taken by Nursing Oxygen Flow Rate - Titration Pulse Oximetry Post Tiitration 08/05/23 05:26 08/05/23 05:30 08/05/23 05:34 Temperature Temperature Source Pulse Rate 176 H Pulse Rate [Apical] Pulse Rate from SpO2 Sensor 106 H Pulse Rhythm [Apical] Pulse Strength [Apical] Respiratory Rate 26 H Respiratory Effort / Characteristics Non-Labored Respiratory Depth Normal Respiratory Pattern Regular Blood Pressure 106/68 Blood Pressure [Right Arm] Blood Pressure Mean 77 Blood Pressure Mean [Right Arm] Blood Pressure Position [Right Arm] Pulse Oximetry 96 Oxygen Delivery Method Nasal Cannula Oxygen Flow Rate 2 Sepsis Recent Fever Within 48 Hours Sepsis New/Unexplained Change in Mental Status Sepsis Action Taken by Nursing Oxygen Flow Rate - Titration Pulse Oximetry Post Tiitration 08/05/23 05:40 08/05/23 05:41 08/05/23 05:41 Temperature Temperature Source Pulse Rate 151 H 133 H Pulse Rate [Apical] Pulse Rate from SpO2 Sensor 106 H 108 H Pulse Rhythm [Apical] Pulse Strength [Apical] Respiratory Rate 23 26 H Respiratory Effort / Characteristics Respiratory Depth Respiratory Pattern Blood Pressure 92/68 L Blood Pressure [Right Arm] Blood Pressure Mean 74 Blood Pressure Mean [Right Arm] Blood Pressure Position [Right Arm] Pulse Oximetry 96 96 Oxygen Delivery Method Oxygen Flow Rate Sepsis Recent Fever Within 48 Hours Sepsis New/Unexplained Change in Mental Status Sepsis Action Taken by Nursing Oxygen Flow Rate - Titration Pulse Oximetry Post Tiitration 08/05/23 05:43 08/05/23 05:50 08/05/23 05:50 Temperature Temperature Source Pulse Rate 140 H Pulse Rate [Apical] 146 H Pulse Rate from SpO2 Sensor 105 H Pulse Rhythm [Apical] Irregular Pulse Strength [Apical] Normal Respiratory Rate 16 25 H Respiratory Effort / Characteristics Non-Labored Respiratory Depth Normal Respiratory Pattern Regular Blood Pressure 96/70 L Blood Pressure [Right Arm] 92/68 L Blood Pressure Mean 84 Blood Pressure Mean [Right Arm] 76 Blood Pressure Position [Right Arm] Lying Pulse Oximetry 97 97 Oxygen Delivery Method Room Air Nasal Cannula Oxygen Flow Rate 2 Sepsis Recent Fever Within 48 Hours Sepsis New/Unexplained Change in Mental Status Sepsis Action Taken by Nursing Oxygen Flow Rate - Titration Pulse Oximetry Post Tiitration 08/05/23 05:53 08/05/23 06:00 08/05/23 06:00 Temperature Temperature Source Pulse Rate 153 H Pulse Rate [Apical] 148 H Pulse Rate from SpO2 Sensor 99 H Pulse Rhythm [Apical] Irregular Pulse Strength [Apical] Normal Respiratory Rate 24 22 Respiratory Effort / Characteristics Non-Labored Respiratory Depth Normal Respiratory Pattern Regular Blood Pressure 80/63 L Blood Pressure [Right Arm] 96/70 L Blood Pressure Mean 69 Blood Pressure Mean [Right Arm] 78 Blood Pressure Position [Right Arm] Lying Pulse Oximetry 98 96 Oxygen Delivery Method Nasal Cannula Oxygen Flow Rate 2 Sepsis Recent Fever Within 48 Hours Sepsis New/Unexplained Change in Mental Status Sepsis Action Taken by Nursing Oxygen Flow Rate - Titration Pulse Oximetry Post Tiitration 08/05/23 06:04 08/05/23 06:04 08/05/23 06:06 Temperature Temperature Source Pulse Rate 163 H Pulse Rate [Apical] 149 H Pulse Rate from SpO2 Sensor 111 H Pulse Rhythm [Apical] Irregular Pulse Strength [Apical] Normal Respiratory Rate 27 H 28 H Respiratory Effort / Characteristics Non-Labored Respiratory Depth Normal Respiratory Pattern Regular Blood Pressure 95/71 L Blood Pressure [Right Arm] 95/71 L Blood Pressure Mean 76 Blood Pressure Mean [Right Arm] 79 Blood Pressure Position [Right Arm] Pulse Oximetry 97 96 Oxygen Delivery Method Nasal Cannula Oxygen Flow Rate 2 Sepsis Recent Fever Within 48 Hours Sepsis New/Unexplained Change in Mental Status Sepsis Action Taken by Nursing Oxygen Flow Rate - Titration Pulse Oximetry Post Tiitration 08/05/23 06:10 08/05/23 06:10 08/05/23 06:20 Temperature Temperature Source Pulse Rate 142 H 156 H Pulse Rate [Apical] Pulse Rate from SpO2 Sensor 122 H 111 H Pulse Rhythm [Apical] Pulse Strength [Apical] Respiratory Rate 27 H 24 Respiratory Effort / Characteristics Respiratory Depth Respiratory Pattern Blood Pressure 90/61 L Blood Pressure [Right Arm] Blood Pressure Mean 70 Blood Pressure Mean [Right Arm] Blood Pressure Position [Right Arm] Pulse Oximetry 98 95 Oxygen Delivery Method Oxygen Flow Rate Sepsis Recent Fever Within 48 Hours Sepsis New/Unexplained Change in Mental Status Sepsis Action Taken by Nursing Oxygen Flow Rate - Titration Pulse Oximetry Post Tiitration 08/05/23 06:22 08/05/23 06:22 08/05/23 06:32 Temperature Temperature Source Pulse Rate 185 H 91 H Pulse Rate [Apical] Pulse Rate from SpO2 Sensor 103 H Pulse Rhythm [Apical] Pulse Strength [Apical] Respiratory Rate 27 H Respiratory Effort / Characteristics Respiratory Depth Respiratory Pattern Blood Pressure 102/71 Blood Pressure [Right Arm] Blood Pressure Mean 76 Blood Pressure Mean [Right Arm] Blood Pressure Position [Right Arm] Pulse Oximetry 98 Oxygen Delivery Method Oxygen Flow Rate Sepsis Recent Fever Within 48 Hours Sepsis New/Unexplained Change in Mental Status Sepsis Action Taken by Nursing Oxygen Flow Rate - Titration Pulse Oximetry Post Tiitration 08/05/23 06:32 08/05/23 06:43 08/05/23 06:44 Temperature Temperature Source Pulse Rate 165 H 178 H 148 H Pulse Rate [Apical] Pulse Rate from SpO2 Sensor Pulse Rhythm [Apical] Pulse Strength [Apical] Respiratory Rate Respiratory Effort / Characteristics Respiratory Depth Respiratory Pattern Blood Pressure Blood Pressure [Right Arm] Blood Pressure Mean Blood Pressure Mean [Right Arm] Blood Pressure Position [Right Arm] Pulse Oximetry Oxygen Delivery Method Oxygen Flow Rate Sepsis Recent Fever Within 48 Hours Sepsis New/Unexplained Change in Mental Status Sepsis Action Taken by Nursing Oxygen Flow Rate - Titration Pulse Oximetry Post Tiitration 08/05/23 06:44 08/05/23 07:20 08/05/23 07:25 Temperature Temperature Source Pulse Rate 92 H Pulse Rate [Apical] 81 68 Pulse Rate from SpO2 Sensor Pulse Rhythm [Apical] Pulse Strength [Apical] Respiratory Rate 12 12 Respiratory Effort / Characteristics Non-Labored Spontaneous Respiratory Depth Normal Respiratory Pattern Regular Blood Pressure Blood Pressure [Right Arm] 81/55 L 84/49 L Blood Pressure Mean Blood Pressure Mean [Right Arm] 63 60 Blood Pressure Position [Right Arm] Lying Lying Pulse Oximetry 96 95 Oxygen Delivery Method Nasal Cannula Nasal Cannula Oxygen Flow Rate 4 4 Sepsis Recent Fever Within 48 Hours Sepsis New/Unexplained Change in Mental Status Sepsis Action Taken by Nursing Oxygen Flow Rate - Titration Pulse Oximetry Post Tiitration Laboratory Data 08/06/23 06:45 08/06/23 06:45 Lab Results 08/05/23 08/05/23 Range/Units 05:10 05:25 WBC 7.85 (4.8-10.8) K/ul RBC 4.75 (4.20-5.40) M/uL Hgb 14.9 (12.0-16.0) g/dl Hct 45.7 (37.0-47.0) % MCV 96.2 (80.0-100.0) fL MCH 31.4 (25.0-34.0) pg MCHC 32.6 (32.0-36.0) g/dL RDW Std Deviation 49.2 H (36.4-46.3) fL RDW Coeff of Humberto 13.8 (11.5-14.5) % Plt Count 786 H (130-400) K/uL MPV 9.1 L (9.4-12.4) fL Immature Gran % (Auto) 0.4 % Neut % (Auto) 49.2 % Lymph % (Auto) 34.3 % [place] % (Auto) 12.9 % Eos % (Auto) 2.4 % Baso % (Auto) 0.8 % Neut # (Auto) 3.87 (1.40-6.50) K/uL Lymph # (Auto) 2.69 (1.20-3.40) K/uL [place] # (Auto) 1.01 H (0.11-0.59) K/uL Eos # (Auto) 0.19 (0.00-0.50) K/uL Baso # (Auto) 0.06 (0.00-0.20) K/uL Immature Gran # (Auto) 0.03 (0.01-0.20) K/uL Sodium 142 (136-145) mmol/L Potassium 4.2 (3.5-5.1) mmol/L Chloride 105 (98-107) mmol/L Carbon Dioxide 26 (21-32) mmol/L Anion Gap 11 (3-11) BUN 23 (6-23) mg/dl Creatinine 0.99 (0.6-1.2) mg/dl Est Cr Clr Drug Dosing 46.3 ml/min Est GFR ( Amer) 63.7 ml/min Est GFR (Non-Af Amer) 55.0 ml/min BUN/Creatinine Ratio 23.2 H (10-20) Glucose 147 H (70-99(Fasting)) mg/dl Calcium 9.6 (8.6-10.3) mg/dl Magnesium 2.1 (1.7-2.4) mg/dl Total Bilirubin 0.3 (0.2-1.0) mg/dl AST 14 (13-39) U/L ALT 21 (7-52) U/L Alkaline Phosphatase 80 (34-104) U/L Troponin I High Sens 7.2 (0-14) pg/ml Total Protein 6.9 (6.0-8.3) gm/dl Albumin 3.4 (3.4-5.0) gm/dl Globulin 3.5 (2.5-4.0) gm/dl Albumin/Globulin Ratio 1.0 (0.9-2) Procalcitonin 0.08 (0-0.5) ng/ml TSH 1.742 (0.300-4.500) uIu/ml Adenovirus (PCR) Not Detected (NotDetected) B. pertussis DNA (PCR) Not Detected (NotDetected) B.parapertussis DNA PCR Not Detected (NotDetected) C. pneumoniae DNA (PCR) Not Detected (NotDetected) Coronavirus OC43 (PCR) Not Detected (NotDetected) Coronavirus HKU1 (PCR) Not Detected (NotDetected) Coronavirus 229E (PCR) Not Detected (NotDetected) SARS-CoV-2 (PCR) Not Detected (NotDetected) Coronavirus NL63 (PCR) Not Detected (NotDetected) Human Metapneumovir PCR Not Detected (NotDetected) Influenza Type A (PCR) Not Detected (NotDetected) Influenza Type B (PCR) Not Detected (NotDetected) M. pneumoniae (PCR) Not Detected (NotDetected) Parainfluenza 1 (PCR) Not Detected (NotDetected) Parainfluenza 2 (PCR) Not Detected (NotDetected) Parainfluenza 3 (PCR) Not Detected (NotDetected) Parainfluenza 4 (PCR) Not Detected (NotDetected) RSV (PCR) Not Detected (NotDetected) Entero/Rhino (PCR) Not Detected (NotDetected) Administered Medications Amiodarone HCl (Amiodarone 200 Mg Tab) 200 mg PO TIDM [facility] Stop: 09/05/23 07:59 Last Admin: 08/06/23 07:59 Dose: 200 mg Documented By: MARIA EUGENIA Apixaban (Apixaban 5 Mg Tablet) 5 mg PO BID [facility] Stop: 09/04/23 09:46 Last Admin: 08/06/23 08:02 Dose: 5 mg Documented By: MARIA EUGENIA Admin: 08/05/23 23:07 Dose: 5 mg Documented By: Admin: 08/05/23 12:19 Dose: 5 mg Documented By: BERT Atorvastatin Calcium (Atorvastatin 40 Mg Tab) 40 mg PO QAM [facility] Stop: 09/04/23 09:46 Last Admin: 08/06/23 08:00 Dose: 40 mg Documented By: MARIA EUGENIA Admin: 08/05/23 12:18 Dose: 40 mg Documented By: BERT Calcium/Vitamin D (Calcium 600mg + Vit D 400 Iu Tab) 1 tab PO DAILY [facility] Stop: 09/05/23 08:59 Last Admin: 08/06/23 07:58 Dose: 1 tab Documented By: MARIA EUGENIA Ferrous Sulfate (Ferrous Sulfate 325 Mg Tab) 325 mg PO DAILY [facility] Stop: 09/04/23 09:59 Last Admin: 08/06/23 07:59 Dose: 325 mg Documented By: MARIA EUGENIA Admin: 08/05/23 12:19 Dose: 325 mg Documented By: BERT Levothyroxine Sodium (Levothyroxine Sodium 50 Mcg Tablet) 50 mcg PO DAILY [facility] Stop: 09/04/23 09:46 Last Admin: 08/06/23 08:00 Dose: 50 mcg Documented By: MARIA EUGENIA Admin: 08/05/23 12:19 Dose: 50 mcg Documented By: BERT Melatonin (Melatonin 3 Mg Tab) 3 mg PO HS [facility] Stop: 09/04/23 20:59 Last Admin: 08/05/23 23:07 Dose: 3 mg Documented By: CL Midodrine (Midodrine Hcl 2.5 Mg Tab) 5 mg PO TID@0800,1200,1700 [facility] Stop: 09/04/23 11:59 Last Admin: 08/06/23 08:00 Dose: 5 mg Documented By: MARIA EUGENIA Admin: 08/05/23 17:22 Dose: 5 mg Documented By: MARIA EUGENIA Admin: 08/05/23 12:19 Dose: 5 mg Documented By: BERT Pantoprazole Sodium (Pantoprazole 40 Mg Tab) 40 mg PO DAILY [facility]; Protocol Stop: 09/04/23 09:59 Last Admin: 08/06/23 07:59 Dose: 40 mg Documented By: MARIA EUGENIA Admin: 08/05/23 12:19 Dose: 40 mg Documented By: BERT Discontinued Medications Adenosine (Adenosine Iv Soln 3 Mg/Ml 2 Ml Vial) Confirm Administered Dose 6 mg IV .STK-MED ONE Stop: 08/05/23 06:27 Last Admin: 08/05/23 06:30 Dose: 6 mg Documented By: KG Adenosine (Adenosine Iv Soln 3 Mg/Ml 2 Ml Vial) Confirm Administered Dose 12 mg IV .STK-MED ONE Stop: 08/05/23 06:34 Last Admin: 08/05/23 07:06 Dose: Not Given Documented By: KG Adenosine (Adenosine Iv Soln 3 Mg/Ml 2 Ml Vial) 6 mg IV NOW STA Stop: 08/05/23 06:56 Last Admin: 08/05/23 07:06 Dose: Not Given Documented By: KG Amiodarone HCl (Amiodarone 200 Mg Tab) 200 mg PO NOW ONE Stop: 08/05/23 18:46 Last Admin: 08/05/23 19:35 Dose: 200 mg Documented By: CL Amiodarone HCl (Amiodarone 200 Mg Tab) 200 mg PO ONE ONE Stop: 08/05/23 23:01 Last Admin: 08/05/23 23:07 Dose: 200 mg Documented By: CL Fentanyl Citrate (Fentanyl Citrate Pf 100 Mcg/2 Ml Vial) Confirm Administered Dose 100 mcg .ROUTE .STK-MED ONE Stop: 08/05/23 06:42 Last Increment: 08/05/23 06:42 Dose: 50 mcg Documented By: KG Fentanyl Citrate (Fentanyl Citrate Pf 100 Mcg/2 Ml Vial) 50 mcg IV NOW STA Stop: 08/05/23 06:56 Last Admin: 08/05/23 07:07 Dose: Not Given Documented By: KG Sodium Chloride (Nss) 500 mls @ 999 mls/hr IV .Q31M ONE Stop: 08/05/23 05:53 Last Infusion: 08/05/23 05:53 Dose: Infused Documented By: Admin: 08/05/23 05:20 Dose: 999 mls/hr Documented By: KG Sodium Chloride (Nss) 250 mls @ 999 mls/hr IV .Q16M ONE Stop: 08/05/23 06:12 Last Infusion: 08/05/23 07:05 Dose: Infused Documented By: Admin: 08/05/23 06:01 Dose: 999 mls/hr Documented By: KG Sodium Chloride (Nss) 500 mls @ 999 mls/hr IV .Q31M ONE Stop: 08/05/23 08:48 Last Infusion: 08/05/23 08:56 Dose: Infused Documented By: Admin: 08/05/23 08:00 Dose: 999 mls/hr Documented By: MMKavon Sodium Chloride (Nss) 1,000 mls @ 100 mls/hr IV .Q10H [facility] Stop: 09/04/23 09:46 Last Admin: 08/06/23 05:54 Dose: 100 mls/hr Documented By: MMCrispin Infusion: 08/06/23 05:54 Dose: Infused Documented By: Admin: 08/05/23 21:20 Dose: 100 mls/hr Documented By: Infusion: 08/05/23 21:20 Dose: Infused Documented By: Admin: 08/05/23 11:20 Dose: 100 mls/hr Documented By: BERT Midazolam HCl (Midazolam Hcl 1 Mg/Ml 2ml Vial) Confirm Administered Dose 4 mg .ROUTE .STK-MED ONE Stop: 08/05/23 06:36 Last Increment: 08/05/23 06:40 Dose: 2.5 mg Documented By: KG Midazolam HCl (Midazolam Hcl 1 Mg/Ml 2ml Vial) 2.5 mg IV NOW STA Stop: 08/05/23 06:56 Last Admin: 08/05/23 07:07 Dose: Not Given Documented By: KG Imaging Data Radiologist's Impression: Chest X-Ray 08/05/23 05:23 XR chest 1V portable CLINICAL HISTORY: Dysrhythmia. COMPARISON STUDY: Chest radiograph July 27, 2023. FINDINGS: A chondroid lesion within the proximal left humerus is unchanged since radiographs of October 16, 2015. This likely reflects an enchondroma. There is no pneumothorax. A small to moderate right pleural effusion has decreased in size since prior exam. Right lower lung consolidation is present. Aeration has slightly improved since prior exam. Cardiomediastinal silhouette is stable. No evidence for overt pulmonary edema. IMPRESSION: 1. Right lower lung opacity which could reflect pneumonia or atelectasis. Aeration has improved since prior chest radiograph. Radiographic follow up to ensure resolution is recommended. 2. Small to moderate right pleural effusion, decreased in size since prior exam. ACT 112: Negative or not required by law. Electronically signed by: Juan Carlos Martin M.D. 08/05/2023 6:35 AM Discharge Plan Visit Data Chief Complaint: Shortness of Breath/Dyspnea Stated Complaint: SOB ED Provider: Estela Andrew Discharge Problem: Atrial fibrillation with rapid ventricular response, Acute hypotension Patient Disposition: Admitted As Inpatient Discharge Instructions Interventions: ED Discharge Assessment Last Done: 08/05/23 09:48
[2023-08-05 08:55] LABS: Appearance Urine Clear (Clear); Bacteria Urine Automated None Seen (None Seen); Bilirubin Urine Negative (Negative); Blood Urine Negative (Negative); Color Urine Yellow; Epithelial Cell Urine Auto 0-2 /hpf (0-2); Glucose Urine UA Negative (Negative); Ketones Urine Negative (Negative); Leukocyte Esterase Urine Negative (Negative); Mucus Urine Present (None Prsent); Nitrite Urine Negative (Negative); Protein Urine Trace (Negative); RBC Urine Automated 0-2 /hpf (0-2); Specific Gravity Urine 1.016 (1.000-1.030); Urobilinogen Urine Negative (Negative); WBC Urine Automated 0-5 /hpf (0-5)
[2023-08-05] MEDS ORDERED: ACETAMINOPHEN 325 MG TAB PO PRN (09:47)
[2023-08-05] MEDS ORDERED: ONDANSETRON INJ 2 MG/ML 2 ML VIAL IV PRN (09:47)
--- NOTE | 2023-08-05 10:56 | Cardiology Consultation ---
Date of Consultation August 05, 2023 Assessment & Plan (1) Atrial fibrillation with RVR: (2) Paroxysmal atrial fibrillation: (3) Pleural effusion, right: (4) Hypotension: Plan Mrs. Mckinley is a 78-year-old female with a history of Prediabetes, Multiple Sclerosis, Ataxia, Rishi's Thyroiditis, Hypothyroidism, Chronic Fatigue, Cervical Degenerative Disc Disease, Myelopathy, Idiopathic Polyneuropathy, CVA, and recently diagnosed Atrial Fibrillation with RVR. Patient was hospitalized at our facility from 07/11/2023 through 07/20/2019 after presenting with suspected sepsis, hypotension, right middle lobe pneumonia, acute hypoxic respiratory failure and she was in rapid atrial fibrillation. According to Dr. Mike's consultation note dated 07/13/23 -- "She was found to be in atrial fibrillation with a rapid ventricular response, reported to be 180 bpm by EMS. She was intubated, and after initial treatment converted to sinus rhythm. Her presenting blood pressure is reported as 73/53, however there is a reading of 49/28 and readings in the 80s and 90s systolic. Hypotension appears to be present at least intermittently for more than 24 hours. Her presenting EKG on July 11, 2023 at 0740 showed atrial fibrillation with a heart rate of 143 bpm. 2 hours later she was in sinus rhythm at 103 bpm. An echocardiogram done July 11, 2023 showed low normal left ventricular systolic function with borderline global hypokinesis and borderline concentric left ventricular hypertrophy. Her ejection fraction was felt to be 45% to 50%. With this presentation her high-sensitivity troponin was elevated, on presentation was 182 but it increased to a peak of 1427 about 17 hours after presentation and then dropped after that." Later on during that hospitalization she was found to have an acute right thalamic CVA on imaging that was attributed to her atrial fibr illation. Additionally she did have a transient reduction in her LV systolic function that was likely tachycardia induced, her LV systolic function subsequently normalized according to her Echocardiogram dated 07/17/23. LVEF 55% to 60%, normal wall motion, mild concentric LVH. That was her 1st documented episode of paroxysmal atrial fibrillation with RVR. Her A-Fib was treated at discharge with Metoprolol and Eliquis. Patient was then transferred to [facility] on 07/20/23 for rehabilitation services and has been gradually recovering from this acute illness. She was doing well there, but last evening began to have a sensation of shortness of breath/difficulty breathing. She was subsequently transferred to [facility] ER this morning where she was noted to again be in A-Fib with RVR with a V rate of 181 bpm. Patient was subsequently cardioverted by the ER physician. Patient remains in a normal sinus rhythm at the present time, but she is quite hypotensive at times. She is currently getting IV fluids -- her 2nd liter was just being hung when I met with the patient. Her lowest blood pressure recorded today was 80/63, but the vast majority of her systolic blood pressures are in the 90's. Patient could not feel her heart racing today and denies any palpitations, she was just feeling short of breath. Her breathing is much better at this point. Patient does not describe any angina pectoris, she is currently lying flat in her bed without dyspnea, and her nurse monitoring shows normal sinus rhythm presently. She has not had any further neurologic symptoms suggestive of stroke or mini stroke. Thus far her CBC with diff shows a polycythemia with platelet count [id number]. Serum magnesium 2.1 mg/dL, serum potassium 4.2 mmol/L. High sensitivity troponin I is normal at 7.2 pg/mL. TSH is also normal at 1.742 uIu/mL. Chest x-ray shows a small to moderate-sized right pleural effusion, decreased from prior films. Patient does not tolerate A-Fib with RVR so we would like to treat this more aggressively, however patient remains hypotensive at this time. Recommend the followin. Continue IV fluids/blood pressure support. 2. Begin Amiodarone when SBP is consistently above 100 mmHg. Can load this IV without the initial bolus. 3. Discontinue Metoprolol after Amiodarone is initiated. 4. Continue Eliquis 5 mg b.i.d.. 5. Explore possible causes of her hypotension. Thank you for asking us to see this patient in consultation. We will continue to follow along while hospitalized. History of Present Illness Reason for Consultation: -- Atrial Fibrillation with RVR. -- Dyspnea. Requesting Physician: Maikel Talley MD Attending Physician: William Mike MD History of Present Illness Mrs. Mckinley is a 78-year-old female with a history of Prediabetes, Multiple Sclerosis, Ataxia, Rishi's Thyroiditis, Hypothyroidism, Chronic Fatigue, Cervical Degenerative Disc Disease, Myelopathy, Idiopathic Polyneuropathy, CVA, and recently diagnosed Atrial Fibrillation with RVR. Patient was hospitalized at our facility from 07/11/2023 through 07/20/2019 after presenting with suspected sepsis, hypotension, right middle lobe pneumonia, acute hypoxic respiratory failure and she was in rapid atrial fibrillation. According to Dr. Mike's consultation note dated 07/13/23 -- "She was found to be in atrial fibrillation with a rapid ventricular response, reported to be 180 bpm by EMS. She was intubated, and after initial treatment converted to sinus rhythm. Her presenting blood pressure is reported as 73/53, however there is a reading of 49/28 and readings in the 80s and 90s systolic. Hypotension appears to be present at least intermittently for more than 24 hours. Her presenting EKG on July 11, 2023 at 0740 showed atrial fibrillation with a heart rate of 143 bpm. 2 hours later she was in sinus rhythm at 103 bpm. An echocardiogram done July 11, 2023 showed low normal left ventricular systolic function with borderline global hypokinesis and borderline concentric left ventricular hypertrophy. Her ejection fraction was felt to be 45% to 50%. With this presentation her high-sensitivity troponin was elevated, on presentation was 182 but it increased to a peak of 1427 about 17 hours after presentation and then dropped after that." Later on during that hospitalization she was found to have an acute right thalamic CVA on imaging that was attributed to her atrial fibrillation. That was her 1st documented episode of paroxysmal atrial fibrillation with RVR. Her A-Fib was treated at discharge with Metoprolol and Eliquis. Patient was then transferred to [facility] for rehabilitation services and has been gradually recovering from this acute illness. She was doing well there, but last evening began to have a sensation of shortness of breath/difficulty breathing. She was subsequently transferred to [facility] ER this morning where she was noted to again be in A-Fib with RVR with a V rate of 181 bpm. Patient was subsequently cardioverted by the ER physician. Patient remains in a normal sinus rhythm at the present time, but she is quite hypotensive at times. She is currently getting IV fluids -- her 2nd liter was just being hung when I met with the patient. Her lowest blood pressure recorded today was 80/63, but the vast majority of her systolic blood pressures are in the 90's. Patient could not feel her heart racing today and denies any palpitations, she was just feeling short of breath. Her breathing is much better at this point. Patient denies any chest pain, heaviness, tightness, pressure, or discomfort. She denies any neck, jaw, back, or arm pain. She denies any shortness a breath at rest currently, orthopnea, or PND. She has not had any syncope. No further neurologic symptoms suggestive of stroke or mini stroke. Allergies Allergy/AdvReac Type Severity Reaction Status Date / Time latex Allergy Intermediate RASH Verified 03/16/23 10:26 interferon beta-1a Allergy Mild UNKNOWN Verified 03/16/23 10:26 gabapentin Allergy Unknown unknown Verified 03/16/23 10:26 Penicillins Allergy Unknown UNKNOWN Verified 03/16/23 10:26 Gadolinium-Containing AdvReac Mild Headache Verified 07/14/23 01:53 Contrast Medi nickel AdvReac Unknown SKIN Verified 03/16/23 10:26 IRRITATION baclofen AdvReac known Verified 03/16/23 10:26 Home Medications Medication Instructions Recorded Confirmed Type calcium carbonate 500 mg-vitamin 1 tab PO DAILY 12/03/18 08/05/23 History D3 5 mcg (200 unit) tablet liothyronine 5 mcg tablet (Cytomel) 5 mcg PO QA #90 tabs 12/03/18 08/05/23 History melatonin 3 mg tablet 6 mg PO HS 12/03/18 08/05/23 History multivitamin (Daily Multi-Vitamin 1 tab PO DAILY 12/03/18 08/05/23 History tablet) vitamins A,C,O-erqk-wmhcpy 4,296 1 cap PO DAILY 12/03/18 08/05/23 History mcg-226 mg-90 mg capsule (PreserVision AREDS) cholecalciferol (vitamin D3) 50 50 mcg PO DAILY 02/05/21 08/05/23 History mcg (2,000 unit) capsule ferrous sulfate 325 mg (65 mg 325 mg PO DAILY 10/11/21 08/05/23 History iron) tablet levothyroxine 50 mcg tablet 50 mcg PO DAILY 10/11/21 08/05/23 History omeprazole 40 mg capsule,delayed 40 mg PO DAILY 03/16/23 08/05/23 History release duloxetine 30 mg capsule,delayed 30 mg PO HS 90 days #90 caps 04/14/23 08/05/23 Rx release duloxetine 60 mg capsule,delayed 60 mg PO HS #90 caps 04/14/23 08/05/23 Rx release armodafinil 250 mg tablet (Nuvigil) 250 mg PO QAM #90 tabs 05/15/23 08/05/23 Rx famotidine 40 mg tablet 0 mg PO UD 07/11/23 08/05/23 History acetaminophen 325 mg tablet 650 mg (2 x 325 mg) PO Q6H PRN #0 07/20/23 08/05/23 Rx tabs apixaban 5 mg tablet (Eliquis) 5 mg PO BID #0 tabs 07/20/23 08/05/23 Rx atorvastatin 40 mg tablet 40 mg PO QAM #0 tabs 07/20/23 08/05/23 Rx lidocaine 5 % topical patch 1 patch transdermal HS #0 ea 07/20/23 08/05/23 Rx metoprolol succinate 25 mg 175 mg (7 x 25 mg) PO QAM #0 tabs 07/20/23 08/05/23 Rx tablet,extended release 24 hr Patient History Medical History (Updated 08/05/23 @ 12:45 by Reddy Rutledge PA-C) Septic shock Ischemic stroke GERD (gastroesophageal reflux disease) Osteoarthritis Degenerative disc disease Chronic back pain Compression fracture currently in a back brace --> from an accident 12/2019. Migraine Cervical disc disease Macular degeneration Multiple sclerosis H/O Rishi thyroiditis Surgical History (Updated 07/26/23 @ 00:09 by Juvencio Franco) History of section S/P ear surgery Left ear - zygomatic arch surgery History of colonoscopy H/O hand surgery right hand H/O foot surgery bilateral Family History Father Colon cancer Mother Dementia Aunt Breast cancer Lung cancer Other No family history of adverse response to anesthesia Social History Smoking Status: Never smoker Second Hand Exposure: No; Do You Dip or Chew Tobacco: No; Hx Alcohol Use: No Hx Substance Use: No Preferred Language: Monegasque Communication Ability: Effective Visual Impairment: No Limitations Hearing Ability: Normal Shells Inspector Required: No Beliefs That Will Affect Care: None marital status: Current Living Situation: Rehab current occupational status: retired Feels Safe at Home: Yes Assistive Devices: Cane Review of Systems Review of Systems: -- As per HPI. Physical Exam Physical Exam: Pulse 78 and regular, blood pressure is 90/56. SpO2 is 95% on supplemental oxygen at 2 L/min via NC. GENERAL: Patient in no acute distress. HEENT: Head is atraumatic, normocephalic. EOM's intact. Facies symmetric. No perioral cyanosis. NECK: No JVD. JVP is not elevated. Carotid upstrokes are + 2 bilaterally. CHEST/LUNGS: Absent breath sounds in the right base, otherwise clear. No crackles or rales. CVS: S1 and S2 are regular without murmurs, gallops, or rubs. PMI is nondisplaced. No lifts, heaves, or thrills. No abdominal aortic or renal bruits. ABDOMINAL EXAM: Bowel sounds are present. EXTREMITIES: No clubbing or cyanosis. No edema. Intact radial pulses bilaterally. NEUROLOGIC EXAM: Patient is awake, alert, and oriented. Pleasant and cooperative. Answers questions appropriately. Speech is clear. TRAVELER CHANGER: -- Normal sinus rhythm with heart rates in the 70s and 80s. Results & Data Vital Signs (Past 12 Hours) Vital Signs Temp Pulse Pulse Resp BP BP Pulse Ox 08/05/23 10:45 80 14 101/61 95 08/05/23 10:30 78 16 90/56 L 95 08/05/23 10:15 75 18 103/62 95 08/05/23 10:00 72 20 96/53 L 97 08/05/23 09:45 72 20 93/59 L 97 08/05/23 09:30 77 16 104/66 96 08/05/23 09:15 67 20 103/60 97 08/05/23 09:00 74 24 98/63 L 95 08/05/23 08:45 75 20 91/54 L 98 08/05/23 08:24 75 18 102/60 96 08/05/23 08:13 80 16 87/56 L 93 08/05/23 08:10 79 16 87/56 L 96 08/05/23 08:04 88 L 08/05/23 07:55 65 16 108/69 91 08/05/23 07:55 85 18 84/50 L 95 08/05/23 07:50 93 H 18 108/69 94 08/05/23 07:45 80 16 98/61 L 95 08/05/23 07:44 36.6 C 08/05/23 07:25 68 12 84/49 L 95 08/05/23 07:20 81 12 81/55 L 96 08/05/23 06:50 87 20 92/62 L 98 08/05/23 06:44 92 H 08/05/23 06:44 148 H 08/05/23 06:43 178 H 08/05/23 06:32 165 H 08/05/23 06:32 91 H 08/05/23 06:22 102/71 08/05/23 06:22 185 H 27 H 98 08/05/23 06:20 156 H 24 95 08/05/23 06:10 90/61 L 08/05/23 06:10 142 H 27 H 98 08/05/23 06:06 149 H 28 H 95/71 L 96 08/05/23 06:04 95/71 L 08/05/23 06:04 163 H 27 H 97 08/05/23 06:00 80/63 L 08/05/23 06:00 153 H 22 96 08/05/23 05:53 148 H 24 96/70 L 98 08/05/23 05:50 96/70 L 08/05/23 05:50 140 H 25 H 97 08/05/23 05:43 146 H 16 92/68 L 97 08/05/23 05:41 133 H 26 H 96 08/05/23 05:41 92/68 L 08/05/23 05:40 151 H 23 96 08/05/23 05:34 08/05/23 05:30 176 H 26 H 96 08/05/23 05:26 106/68 08/05/23 05:26 153 H 29 H 97 08/05/23 05:20 159 H 31 H 97 08/05/23 05:19 171 H 28 H 98 08/05/23 05:19 95/57 L 08/05/23 05:18 182 H 23 98 08/05/23 05:10 185 H 33 H 92 08/05/23 05:08 111/60 08/05/23 05:08 190 H 21 95 08/05/23 05:06 169 H 29 H 0424 05:06 197 H 08/05/23 04:58 36.5 C 92 H 20 85/61 L 94 08/05/23 04:55 92 O2 Del Method O2 Flow Rate 08/05/23 10:45 Nasal Cannula 2 08/05/23 10:30 Nasal Cannula 2 08/05/23 10:15 Nasal Cannula 2 08/05/23 10:00 Nasal Cannula 2 08/05/23 09:45 Nasal Cannula 2 08/05/23 09:30 Nasal Cannula 2 08/05/23 09:15 Nasal Cannula 2 08/05/23 09:00 Nasal Cannula 2 08/05/23 08:45 Nasal Cannula 2 08/05/23 08:24 Nasal Cannula 2 08/05/23 08:13 Nasal Cannula 2 08/05/23 08:10 Nasal Cannula 2 08/05/23 08:04 Nasal Cannula 08/05/23 07:55 Nasal Cannula 2 08/05/23 07:55 Room Air 08/05/23 07:50 Nasal Cannula 2 08/05/23 07:45 Room Air 08/05/23 07:44 08/05/23 07:25 Nasal Cannula 4 08/05/23 07:20 Nasal Cannula 4 08/05/23 06:50 Nasal Cannula 2 08/05/23 06:44 08/05/23 06:44 08/05/23 06:43 08/05/23 06:32 08/05/23 06:32 08/05/23 06:22 08/05/23 06:22 08/05/23 06:20 08/05/23 06:10 08/05/23 06:10 08/05/23 06:06 Nasal Cannula 2 08/05/23 06:04 08/05/23 06:04 08/05/23 06:00 08/05/23 06:00 08/05/23 05:53 Nasal Cannula 2 08/05/23 05:50 08/05/23 05:50 08/05/23 05:43 Room Air, Nasal Cannula 2 08/05/23 05:41 08/05/23 05:41 08/05/23 05:40 08/05/23 05:34 Nasal Cannula 2 08/05/23 05:30 08/05/23 05:26 08/05/23 05:26 08/05/23 05:20 08/05/23 05:19 08/05/23 05:19 08/05/23 05:18 08/05/23 05:10 08/05/23 05:08 08/05/23 05:08 08/05/23 05:06 08/05/23 05:06 08/05/23 04:58 Room Air 08/05/23 04:55 Nasal Cannula Laboratory Results Laboratory Results - last 24 hr 08/05/23 08/05/23 08/05/23 05:10 05:25 Unknown WBC 7.85 RBC 4.75 Hgb 14.9 Hct 45.7 MCV 96.2 MCH 31.4 MCHC 32.6 RDW Std Deviation 49.2 H RDW Coeff of Humberto 13.8 Plt Count 786 H MPV 9.1 L Immature Gran % (Auto) 0.4 Neut % (Auto) 49.2 Lymph % (Auto) 34.3 Logan % (Auto) 12.9 Eos % (Auto) 2.4 Baso % (Auto) 0.8 Neut # (Auto) 3.87 Lymph # (Auto) 2.69 Logan # (Auto) 1.01 H Eos # (Auto) 0.19 Baso # (Auto) 0.06 Immature Gran # (Auto) 0.03 Sodium 142 Potassium 4.2 Chloride 105 Carbon Dioxide 26 Anion Gap 11 BUN 23 Creatinine 0.99 Est Cr Clr Drug Dosing 46.3 Est GFR ( Amer) 63.7 Est GFR (Non-Af Amer) 55.0 BUN/Creatinine Ratio 23.2 H Glucose 147 H Calcium 9.6 Magnesium 2.1 Total Bilirubin 0.3 AST 14 ALT 21 Alkaline Phosphatase 80 Troponin I High Sens 7.2 Total Protein 6.9 Albumin 3.4 Globulin 3.5 Albumin/Globulin Ratio 1.0 TSH 1.742 Urine Color Yellow Urine Appearance Clear Urine pH 6.0 Ur Specific [place] 1.016 Urine Protein Trace H Urine Glucose (UA) Negative Urine Ketones Negative Urine Blood Negative Urine Nitrite Negative Urine Bilirubin Negative Urine Urobilinogen Negative Ur Leukocyte Esterase Negative Urine WBC (Auto) 0-5 Urine RBC (Auto) 0-2 U Hyaline Cast (Auto) 6-10 H U Epithel Cells (Auto) 0-2 Urine Bacteria (Auto) None Seen Urine Mucus Present A Adenovirus (PCR) Not Detected B. pertussis DNA (PCR) Not Detected B.parapertussis DNA PCR Not Detected C. pneumoniae DNA (PCR) Not Detected Coronavirus OC43 (PCR) Not Detected Coronavirus HKU1 (PCR) Not Detected Coronavirus 229E (PCR) Not Detected SARS-CoV-2 (PCR) Not Detected Coronavirus NL63 (PCR) Not Detected Human Metapneumovir PCR Not Detected Influenza Type A (PCR) Not Detected Influenza Type B (PCR) Not Detected M. pneumoniae (PCR) Not Detected Parainfluenza 1 (PCR) Not Detected Parainfluenza 2 (PCR) Not Detected Parainfluenza 3 (PCR) Not Detected Parainfluenza 4 (PCR) Not Detected RSV (PCR) Not Detected Entero/Rhino (PCR) Not Detected Diagnostic Findings CXR 08/05/23: FINDINGS: A chondroid lesion within the proximal left humerus is unchanged since radiographs of October 16, 2015. This likely reflects an enchondroma. There is no pneumothorax. A small to moderate right pleural effusion has decreased in size since prior exam. Right lower lung consolidation is present. Aeration has slightly improved since prior exam. Cardiomediastinal silhouette is stable. No evidence for overt pulmonary edema. IMPRESSION: 1. Right lower lung opacity which could reflect pneumonia or atelectasis. Aeration has improved since prior chest radiograph. Radiographic follow up to ensure resolution is recommended. 2. Small to moderate right pleural effusion, decreased in size since prior exam. PG Care Time/CCT Total # of Minutes Spent Total Time Spent with Patient: Total time spent is greater than 50% in coordination of care (as documented) at patient's floor/unit and/or counseling patient:43 [place] [address] INT INP/OBS CARE 2/55MIN Patient Type Established History Detailed Exam Detailed Medical Decision Making High Complexity Diagnoses Atrial fibrillation with RVR I48.91 Paroxysmal atrial fibrillation I48.0 Pleural effusion, right J90 Hypotension, unspecified hypotension type I95.9 Hypotension type: unspecified hypotension type Time Spent (min) 65 (4) Hypotension Hypotension type: unspecified hypotension type Qualified Code(s): I95.9 - Hypotension, unspecified
[2023-08-05] MEDS: SODIUM CHLORIDE 0.9% 1,000 ML IV SCH (11:20)
[2023-08-05] MEDS: ATORVASTATIN 40 MG TAB PO SCH (12:18)
[2023-08-05] MEDS: MIDODRINE HCL 2.5 MG TAB PO SCH (12:19)
[2023-08-05] MEDS: APIXABAN 5 MG TABLET PO SCH (12:19)
[2023-08-05] MEDS: LEVOTHYROXINE SODIUM 50 MCG TABLET PO SCH (12:19)
[2023-08-05] MEDS: PANTOprazole 40 MG TAB PO SCH (12:19)
[2023-08-05] MEDS: FERROUS SULFATE 325 MG TAB PO SCH (12:19)
--- NOTE | 2023-08-05 13:28 | History & Physical Report ---
Date of Service August 05, 2023 Assessment & Plan (1) Atrial fibrillation with RVR: Plan: Patient started experiencing shortness of breath at home Presents to the hospital and found to be in A-fib with RVR, hemodynamically unstable with low blood pressure She received cardioversion and now currently in sinus rhythm However blood pressure still tenuous 95/57 despite IV fluids Cardiology has been consulted, await recommendations (2) Hypotension: Plan: Most likely due to hypovolemia There is no evidence of infection for now, cultures have been obtained patient is afebrile nontoxic looking Will obtain procalcitonin level For now continue IV fluid resuscitation Hold off on antibiotics (3) HFrEF (heart failure with reduced ejection fraction): Plan: 2D echo showed ejection fraction 45% Appears presently compensated right now Hold off on diuretics Monitor input and output, daily weight. (4) Ischemic stroke: Plan: Found to have thalamic stroke during her last admission here in the hospital On apixaban and atorvastatin. (5) Polyneuropathy: Plan Monitor closely in the hospital on telemetry Full code DVT prophylaxis apixaban Admission and Anticipated Discharge Date Admission Date: August 05, 2023 History of Present Illness Chief Complaint: Shortness of breath Primary Care Provider: Ganesh De La Fuente, DO This a 78-year-old female with a history of thalamic CVA, multiple sclerosis, Rishi's, cervical degenerative disc disease, idiopathic polyneuropathy, atrial fibrillation who presents from home on account of shortness of breath, palpitations which started a day prior to presentation. Patient was brought by EMS. Of note patient was discharged from this hospital on July 20, 2023. During the hospital stay, she was treated for sepsis, for and sent for rehabilitation at [facility], atrial fibrillation and also new thalamic stroke. She spent some time in the ICU where she was intubated and after liberating from the vent and getting stabilized she was eventually discharged to [facility] on July 19. She was in [facility] and she did well was discharged from [facility] on August 03. She was at home when she started having symptoms of shortness of breath and palpitations and EMS was called. She was found to have a low blood pressure and emergency department also found to be in A-fib with RVR. She underwent cardioversion but her blood pressure remained low. She will be admitted to the hospital for investigation and further management. Allergies Allergy/AdvReac Type Severity Reaction Status Date / Time latex Allergy Intermediate RASH Verified 03/16/23 10:26 interferon beta-1a Allergy Mild UNKNOWN Verified 03/16/23 10:26 gabapentin Allergy Unknown unknown Verified 03/16/23 10:26 Penicillins Allergy Unknown UNKNOWN Verified 03/16/23 10:26 Gadolinium-Containing AdvReac Mild Headache Verified 07/14/23 01:53 Contrast Medi nickel AdvReac Unknown SKIN Verified 03/16/23 10:26 IRRITATION baclofen AdvReac known Verified 03/16/23 10:26 Home Medications Medication Instructions Recorded Confirmed Type calcium carbonate 500 mg-vitamin 1 tab PO DAILY 12/03/18 08/05/23 History D3 5 mcg (200 unit) tablet liothyronine 5 mcg tablet (Cytomel) 5 mcg PO QAM #90 tabs 12/03/18 08/05/23 History melatonin 3 mg tablet 6 mg PO HS 12/03/18 08/05/23 History multivitamin (Daily Multi-Vitamin 1 tab PO DAILY 12/03/18 08/05/23 History tablet) vitamins A,C,O-icjo-dopbtn 4,296 1 cap PO DAILY 12/03/18 08/05/23 History mcg-226 mg-90 mg capsule (PreserVision AREDS) cholecalciferol (vitamin D3) 50 50 mcg PO DAILY 02/05/21 08/05/23 History mcg (2,000 unit) capsule ferrous sulfate 325 mg (65 mg 325 mg PO DAILY 10/11/21 08/05/23 History iron) tablet levothyroxine 50 mcg tablet 50 mcg PO DAILY 10/11/21 08/05/23 History omeprazole 40 mg capsule,delayed 40 mg PO DAILY 03/16/23 08/05/23 History release duloxetine 30 mg capsule,delayed 30 mg PO HS 90 days #90 caps 04/14/23 08/05/23 Rx release duloxetine 60 mg capsule,delayed 60 mg PO HS #90 caps 04/14/23 08/05/23 Rx release armodafinil 250 mg tablet (Nuvigil) 250 mg PO QAM #90 tabs 05/15/23 08/05/23 Rx famotidine 40 mg tablet 0 mg PO UD 07/11/23 08/05/23 History acetaminophen 325 mg tablet 650 mg (2 x 325 mg) PO Q6H PRN #0 07/20/23 08/05/23 Rx tabs apixaban 5 mg tablet (Eliquis) 5 mg PO BID #0 tabs 07/20/23 08/05/23 Rx atorvastatin 40 mg tablet 40 mg PO QAM #0 tabs 07/20/23 08/05/23 Rx lidocaine 5 % topical patch 1 patch transdermal HS #0 ea 07/20/23 08/05/23 Rx metoprolol succinate 25 mg 175 mg (7 x 25 mg) PO QAM #0 tabs 07/20/23 08/05/23 Rx tablet,extended release 24 hr Past Med/Surg History Medical History (Updated 08/05/23 @ 12:45 by Reddy Rutledge PA-C) Septic shock Ischemic stroke GERD (gastroesophageal reflux disease) Osteoarthritis Degenerative disc disease Chronic back pain Compression fracture currently in a back brace --> from an accident 12/2019. Migraine Cervical disc disease Macular degeneration Multiple sclerosis H/O Rishi thyroiditis Surgical History (Updated 07/26/23 @ 00:09 by Juvencio Franco) History of section S/P ear surgery Left ear - zygomatic arch surgery History of colonoscopy H/O hand surgery right hand H/O foot surgery bilateral Family History Father Colon cancer Mother Dementia Aunt Breast cancer Lung cancer Other No family history of adverse response to anesthesia Social History Smoking Status: Never smoker Second Hand Exposure: No; Do You Dip or Chew Tobacco: No; Hx Alcohol Use: No Hx Substance Use: No Preferred Language: Chinese Communication Ability: Effective Visual Impairment: No Limitations Hearing Ability: Normal [employer]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 Physical Exam Physical Exam: The patient is awake, alert and oriented 3, well developed and well nourished, normocephalic and atraumatic, lying in bed and in no acute distress. HEENT--PERRL, EOMI, mucous membranes and oropharynx mildly dry Neck--supple. No JVD. No bruits. Thyroid normal, trachea midline, no adenopathy . Heart--normal S1 and S2. No murmurs, rubs or gallops. Lungs--clear bilaterally, no respiratory distress, no accessory muscle use. Abdomen--normal bowel sounds and soft. Extremities--no cyanosis or clubbing. No edema. Dermatologic--normal skin turgor, normal color, no abnormal lymph nodes, no rash. Neurologic--cranial nerves II through XII grossly intact. Rheumatologic--normal range of motion. Psychiatric--normal affect. Results & Data Results & Data Vital Signs (Past 12 Hours) Vital Signs Temp Pulse Pulse Resp BP BP Pulse Ox 08/05/23 11:15 83 16 95/57 L 97 08/05/23 11:00 85 18 100/57 L 96 08/05/23 10:45 80 14 101/61 95 08/05/23 10:30 78 16 90/56 L 95 08/05/23 10:15 75 18 103/62 95 08/05/23 10:00 72 20 96/53 L 97 08/05/23 09:45 72 20 93/59 L 97 08/05/23 09:30 77 16 104/66 96 08/05/23 09:15 67 20 103/60 97 08/05/23 09:00 74 24 98/63 L 95 08/05/23 08:45 75 20 91/54 L 98 08/05/23 08:24 75 18 102/60 96 08/05/23 08:13 80 16 87/56 L 93 08/05/23 08:10 79 16 87/56 L 96 08/05/23 08:04 88 L 08/05/23 07:55 65 16 108/69 91 08/05/23 07:55 85 18 84/50 L 95 08/05/23 07:50 93 H 18 108/69 94 08/05/23 07:45 80 16 98/61 L 95 08/05/23 07:44 97.9 F 08/05/23 07:25 68 12 84/49 L 95 08/05/23 07:20 81 12 81/55 L 96 08/05/23 06:50 87 20 92/62 L 98 08/05/23 06:44 92 H 08/05/23 06:44 148 H 08/05/23 06:43 178 H 08/05/23 06:32 165 H 08/05/23 06:32 91 H 08/05/23 06:22 102/71 08/05/23 06:22 185 H 27 H 98 08/05/23 06:20 156 H 24 95 08/05/23 06:10 90/61 L 08/05/23 06:10 142 H 27 H 98 08/05/23 06:06 149 H 28 H 95/71 L 96 08/05/23 06:04 95/71 L 08/05/23 06:04 163 H 27 H 97 08/05/23 06:00 80/63 L 08/05/23 06:00 153 H 22 96 08/05/23 05:53 148 H 24 96/70 L 98 08/05/23 05:50 96/70 L 08/05/23 05:50 140 H 25 H 97 08/05/23 05:43 146 H 16 92/68 L 97 08/05/23 05:41 133 H 26 H 96 08/05/23 05:41 92/68 L 08/05/23 05:40 151 H 23 96 08/05/23 05:34 08/05/23 05:30 176 H 26 H 96 08/05/23 05:26 106/68 08/05/23 05:26 153 H 29 H 97 08/05/23 05:20 159 H 31 H 97 08/05/23 05:19 171 H 28 H 98 08/05/23 05:19 95/57 L 08/05/23 05:18 182 H 23 98 08/05/23 05:10 185 H 33 H 92 08/05/23 05:08 111/60 08/05/23 05:08 190 H 21 95 08/05/23 05:06 169 H 29 H 08/05/23 05:06 197 H 08/05/23 04:58 97.7 F 92 H 20 85/61 L 94 08/05/23 04:55 92 O2 Del Method O2 Flow Rate 08/05/23 11:15 Nasal Cannula 2 08/05/23 11:00 Nasal Cannula 2 08/05/23 10:45 Nasal Cannula 2 08/05/23 10:30 Nasal Cannula 2 08/05/23 10:15 Nasal Cannula 2 08/05/23 10:00 Nasal Cannula 2 08/05/23 09:45 Nasal Cannula 2 08/05/23 09:30 Nasal Cannula 2 08/05/23 09:15 Nasal Cannula 2 08/05/23 09:00 Nasal Cannula 2 08/05/23 08:45 Nasal Cannula 2 08/05/23 08:24 Nasal Cannula 2 08/05/23 08:13 Nasal Cannula 2 08/05/23 08:10 Nasal Cannula 2 08/05/23 08:04 Nasal Cannula 08/05/23 07:55 Nasal Cannula 2 08/05/23 07:55 Room Air 08/05/23 07:50 Nasal Cannula 2 08/05/23 07:45 Room Air 08/05/23 07:44 08/05/23 07:25 Nasal Cannula 4 08/05/23 07:20 Nasal Cannula 4 08/05/23 06:50 Nasal Cannula 2 08/05/23 06:44 08/05/23 06:44 08/05/23 06:43 08/05/23 06:32 08/05/23 06:32 08/05/23 06:22 08/05/23 06:22 08/05/23 06:20 08/05/23 06:10 08/05/23 06:10 08/05/23 06:06 Nasal Cannula 2 08/05/23 06:04 08/05/23 06:04 08/05/23 06:00 08/05/23 06:00 08/05/23 05:53 Nasal Cannula 2 08/05/23 05:50 08/05/23 05:50 08/05/23 05:43 Room Air, Nasal Cannula 2 08/05/23 05:41 08/05/23 05:41 08/05/23 05:40 08/05/23 05:34 Nasal Cannula 2 08/05/23 05:30 08/05/23 05:26 08/05/23 05:26 08/05/23 05:20 08/05/23 05:19 08/05/23 05:19 08/05/23 05:18 08/05/23 05:10 08/05/23 05:08 08/05/23 05:08 08/05/23 05:06 08/05/23 05:06 08/05/23 04:58 Room Air 08/05/23 04:55 Nasal Cannula PG Care Time/CCT Total # of Minutes Spent Total Time Spent with Patient: Total time spent is greater than 50% in coordination of care (as documented) at patient's floor/unit and/or counseling patient: Coding Level of Care Code 47284 INT INP/OBS CARE MIN Diagnoses Atrial fibrillation with RVR I48.91 Hypotension, unspecified hypotension type I95.9 Hypotension type: unspecified hypotension type HFrEF (heart failure with reduced ejection fraction) I50.20 Ischemic stroke I63.9 Polyneuropathy G62.9 Time Spent (min) 75 (2) Hypotension Hypotension type: unspecified hypotension type Qualified Code(s): I95.9 - Hypotension, unspecified
--- NOTE | 2023-08-05 16:22 | Electrocardiogram Report ---
Test Reason : Blood Pressure : / mmHG Vent. Rate : 090 BPM Atrial Rate : 090 BPM P-R Int : 150 ms QRS Dur : 082 ms QT Int : 358 ms P-R-T Axes : 059 025 060 degrees QTc Int : 437 ms Normal sinus rhythm Nonspecific ST abnormality Abnormal ECG When compared with ECG of 05-AUG-2023 05:06, (unconfirmed) Sinus rhythm has replaced Atrial fibrillation Vent. rate has decreased BY 91 BPM Criteria for Septal infarct are no longer Present T wave inversion no longer evident in Inferior leads T wave inversion no longer evident in Anterior leads Confirmed by Billy Painter ([id number]) on 08/05/2023 4:22:05 PM Referred By: Maikel Talley Confirmed By:Billy Painter
--- NOTE | 2023-08-05 16:22 | Electrocardiogram Report ---
Test Reason : Blood Pressure : / mmHG Vent. Rate : 181 BPM Atrial Rate : 000 BPM P-R Int : 000 ms QRS Dur : 064 ms QT Int : 198 ms P-R-T Axes : 000 028 024 degrees QTc Int : 343 ms Atrial fibrillation with rapid ventricular response Septal infarct , age undetermined Abnormal ECG When compared with ECG of 13-JUL-2023 05:19, Significant changes have occurred Confirmed by Billy Painter ([id number]) on 08/05/2023 4:21:54 PM Referred By: REFERRED SELF Confirmed By:Billy Painter
[2023-08-05] MEDS: AMIODARONE 200 MG TAB PO ONE ×2 (19:35→23:07)
[2023-08-05] MEDS: MELATONIN 3 MG TAB PO SCH (23:07)
[2023-08-06 07:16] LABS: Basophils # (auto) 0.04 K/uL (0.00-0.20); Basophils % (auto) 0.7 %; Eosinophils # (auto) 0.28 K/uL (0.00-0.50); Eosinophils % (auto) 4.9 %; Hematocrit (blood only) 40.7 % (37.0-47.0); Hemoglobin 12.7 g/dl (12.0-16.0); Immature Granulocytes # (auto) 0.03 K/uL (0.01-0.20); Immature Granulocytes % (auto) 0.5 %; Lymphocytes # (auto) 1.83 K/uL (1.20-3.40); Lymphocytes % (auto) 31.9 %; Mean Corpuscular Hemoglobin 31.5 pg (25.0-34.0); Mean Corpuscular Hgb Conc 31.2 g/dL (32.0-36.0); Monocytes # (auto) 0.78 K/uL (0.11-0.59); Monocytes % (auto) 13.6 %; Neutrophils # (auto) 2.78 K/uL (1.40-6.50); Neutrophils % (auto) 48.4 %; Platelet Count 550 K/uL (130-400); RDW Coefficient of Variation 14.3 % (11.5-14.5); RDW Standard Deviation 52.9 fL (36.4-46.3); Red Blood Count 4.03 M/uL (4.20-5.40); White Blood Count 5.74 K/ul (4.8-10.8)
[2023-08-06 07:46] LABS: BUN Creatinine Ratio 27.6 (10-20); Calcium 8.4 mg/dl (8.6-10.3); Est GFR (Non-African American) 88.9 ml/min; Potassium 4.2 mmol/L (3.5-5.1)
[2023-08-06] MEDS: CALCIUM 600MG + VIT D 400 IU TAB PO SCH (07:58)
[2023-08-06] MEDS: AMIODARONE 200 MG TAB PO SCH (07:59)
--- NOTE | 2023-08-06 10:34 | Discharge Summary ---
Date of Service August 06, 2023 Admission HPI Per Admitting Provider This a 78-year-old female with a history of thalamic CVA, multiple sclerosis, Rishi's, cervical degenerative disc disease, idiopathic polyneuropathy, atrial fibrillation who presents from home on account of shortness of breath, palpitations which started a day prior to presentation. Patient was brought by EMS. Of note patient was discharged from this hospital on July 20, 2023. During the hospital stay, she was treated for sepsis, for and sent for rehabilitation at [facility], atrial fibrillation and also new thalamic stroke. She spent some time in the ICU where she was intubated and after liberating from the vent and getting stabilized she was eventually discharged to [facility] on July 19. She was in [facility] and she did well was discharged from [facility] on August 03. She was at home when she started having symptoms of shortness of breath and palpitations and EMS was called. She was found to have a low blood pressure and emergency department also found to be in A-fib with RVR. She underwent ca rdioversion but her blood pressure remained low. She will be admitted to the hospital for investigation and further management. Principal Diagnosis Atrial fibrillation Discharge Exam The patient is awake, alert and oriented 3, well developed and well nourished, normocephalic and atraumatic, lying in bed and in no acute distress. HEENT--PERRL, EOMI, mucous membranes and oropharynx mildly dry Neck--supple. No JVD. No bruits. Thyroid normal, trachea midline, no adenopathy. Heart--normal S1 and S2. No murmurs, rubs or gallops. Lungs--clear bilaterally, no respiratory distress, no accessory muscle use. Abdomen--normal bowel sounds and soft. Extremities--no cyanosis or clubbing. No edema. Dermatologic--normal skin turgor, normal color, no abnormal lymph nodes, no rash. Neurologic--cranial nerves II through XII grossly intact. Rheumatologic--normal range of motion. Psychiatric--normal affect. Discharge Data Allergies Allergy/AdvReac Type Severity Reaction Status Date / Time latex Allergy Intermediate RASH Verified 03/16/23 10:26 interferon beta-1a Allergy Mild UNKNOWN Verified 03/16/23 10:26 gabapentin Allergy Unknown unknown Verified 03/16/23 10:26 Penicillins Allergy Unknown UNKNOWN Verified 03/16/23 10:26 Gadolinium-Containing AdvReac Mild Headache Verified 07/14/23 01:53 Contrast Medi nickel AdvReac Unknown SKIN Verified 03/16/23 10:26 IRRITATION baclofen AdvReac known Verified 03/16/23 10:26 Consultations 08/05/23 07:49 ED Decision to Admit Stat 08/05/23 09:47 Consult Cardiology Routine Hospital Course (1) Atrial fibrillation with RVR: Patient started experiencing shortness of breath at home Presents to the hospital and found to be in A-fib with RVR, hemodynamically unstable with low blood pressure She received cardioversion and now currently in sinus rhythm Cardiology consulted, started on amiodarone 200 mg 3 times daily Was on metoprolol at home, will discontinue Continue apixaban 5 mg twice daily (2) Hypotension: Now resolved following IV resuscitation Given tendency for low blood pressures at home, will start her on midodrine 5 mg 3 times daily (3) HFrEF (heart failure with reduced ejection fraction): 2D echo showed ejection fraction 45% Appears presently compensated right now Hold off on diuretics Monitor input and output, daily weight. (4) Ischemic stroke: Found to have thalamic stroke during her last admission here in the hospital On apixaban and atorvastatin. (5) Polyneuropathy: Plan Discharge home with home health Full code DVT prophylaxis apixaban Total Time Total Time Spent Total Time Spent (In Minutes): 35 Discharge Plan Discharge Items Patient Disposition: Home - Home Health Services Reason For Visit: AFIB Discharge Diagnosis: afib Activity: Resume your previous activity Non-emergency contact: Primary Care Provider and Supervisor [employer] non-emergency contact if: you have any medication questions Follow-up/Referrals: Ganesh De La Fuente, [Primary Care Provider] - Diet: Regular Addtl Attending Provider Instructions: Please make appointment to follow-up with her regular PCP and executive vp Pending Studies at Discharge: No Stand-Alone Forms: My [employer], Smoking Cessation Medications and DC Order Prescriptions: New amiodarone 200 mg Tablet 200 mg PO TIDM 30 Days Qty: 30 0RF midodrine 2.5 mg Tablet 5 mg PO TID@0800,1200,1700 10 Days Qty: 30 0RF Continued cholecalciferol (vitamin D3) 50 mcg (2,000 unit) capsule 50 mcg PO DAILY duloxetine 30 mg capsule,delayed release(DR/EC) 30 mg PO HS 90 Days Qty: 90 1RF Rx Instructions: take along with 60mg capsule to equal 90mg duloxetine 60 mg capsule,delayed release(DR/EC) 60 mg PO HS Qty: 90 1RF Rx Instructions: take along with 30mg capsule to equal 90mg levothyroxine 50 mcg tablet 50 mcg PO DAILY ferrous sulfate 325 mg (65 mg iron) tablet 325 mg PO DAILY omeprazole 40 mg capsule,delayed release(DR/EC) 40 mg PO DAILY melatonin 3 mg tablet 6 mg PO HS liothyronine [Cytomel] 5 mcg tablet 5 mcg PO QAM Qty: 90 PreserVision AREDS [id number] [id number] capsule 1 cap PO DAILY calcium carbonate-vitamin D3 500 mg(1,250mg) -200 unit tablet 1 tab PO DAILY multivitamin [Daily Multi-Vitamin] tablet 1 tab PO DAILY armodafinil [Nuvigil] 250 mg tablet 250 mg PO QAM Qty: 90 1RF famotidine 40 mg tablet 0 mg PO UD Rx Instructions: unable to verify 07/11/23 atorvastatin 40 mg Tablet 40 mg PO QAM Qty: 0 0RF acetaminophen 325 mg Tablet 650 mg PO Q6H PRNQty: 0 0RF Eliquis 5 mg Tablet 5 mg PO BID Qty: 0 0RF lidocaine 5 % Adhesive Patch,Medicated 1 patch transdermal HS Qty: 0 0RF Discontinued metoprolol succinate 25 mg Tablet Extended Release 24 Hr 175 mg PO QAM Qty: 0 0RF Discharge Orders: Discharge Order (Routine); Ordered 08/06/23 Ordered By: Maikel Talley Admission Data Admit Date/Time: 08/05/23 08:22 Attending Provider: Maikel Talley Admit Provider: Maikel Talley Primary Care Provider: Ganesh De La Fuente Other Providers: Maikel Talley; Eros Mccartney Coding Level of Care Code 39669 INP/OBS DISCH >30 MIN Diagnoses Atrial fibrillation with RVR I48.91 Hypotension, unspecified hypotension type I95.9 Hypotension type: unspecified hypotension type HFrEF (heart failure with reduced ejection fraction) I50.20 Ischemic stroke I63.9 Polyneuropathy G62.9 Time Spent (min) 35
== END 2023-08-06 13:15 | disposition home health service (06) | DRG 309 ==
LOC: ED 04:55 → EDINP 08:22 → 2E 09:48
DX: G35 Multiple sclerosis; Z11.52 Encounter for screening for COVID-19; E86.1 Hypovolemia; E03.9 Hypothyroidism, unspecified; R73.03 Prediabetes; Z88.8 Allergy status to other drugs, medicaments and biological substances; I95.9 Hypotension, unspecified; I48.0 Paroxysmal atrial fibrillation; G62.9 Polyneuropathy, unspecified; Z91.040 Latex allergy status; Z86.73 Personal history of transient ischemic attack (TIA), and cerebral infarction without residual deficits; Z79.01 Long term (current) use of anticoagulants; I50.22 Chronic systolic (congestive) heart failure; Z88.0 Allergy status to penicillin; K21.9 Gastro-esophageal reflux disease without esophagitis